=== PATIENT | male | born 1950 | race African-American/Black ===

== ENCOUNTER → 2017-10-24 11:39 | Outpatient (CLI) | payer MEDICARE, OTHER, SELFPAY ==
--- NOTE | 2017-10-24 12:19 | RAD_ITS ---
STUDY: X-RAY - CERVICAL SPINE REASON FOR EXAM: Male, 67 years old. Neck pain TECHNIQUE: 6 view(s) of the cervical spine were obtained. COMPARISON: None FINDINGS: Normal anterior atlantoaxial articulation. Normal odontoid process. Normal cervical lordosis. There is multi-level endplate spondylosis. There is multi-level degenerative disc disease with multilevel disc space narrowing. There is multi-level osseous foraminal stenosis. The soft tissue structures are unremarkable. RAD/Cerv Spine 4 or 5 Views IMPRESSION: There is multi-level degenerative disc disease with multilevel disc space narrowing. There is multi-level osseous foraminal stenosis. Electronically Signed: Leda Coronado MD at 12:34 EDT Tel , Service support ,
[2017-10-24 15:45] LABS: Absolute Lymphocyte Count 2.39 X10^3/ul (0.83-4.51); Absolute Neutrophil Count 4.6 X10^3/uL (2.0-7.7); Basophil# 0.07 X10^3/uL; Basophil% 0.9 % (0-1); Eosinophil# 0.21 X10^3/uL; Eosinophils% 2.6 % (0-5); Hematocrit 47.3 % (40-54); Lymphocyte # 2.39 X10^3/ul (4.0); Lymphocyte % 29.3 % (19-41); Mean Corp Hgb Conc 33.8 g/gl (32-36); Mean Corpuscular Hgb 31.7 pg (27.0-32.0); Mean Corpuscular Volume 93.8 fL (80-94); Mean Platelet Vol. 10.7 fl (6.2-12.0); Monocyte# 0.88 X10^3/uL; Monocyte% 10.8 % (0-10); Neutrophil % 56.3 % (47-70); POSITIVE COUNT NO; POSITIVE DIFFERENTIAL NO; POSITIVE MORPHOLOGY NO; Platelet Count 312 K/mm3 (150-450); RBC Distribution Width CV 14.9 % (11.6-14.6); Red Blood Count 5.04 M/mm3 (4.6-6.2); White Blood Count 8.2 K/mm3 (4.4-11.0)
[2017-10-24 15:56] LABS: AST(SGOT) 13 U/L (15-37); Alanine Aminotransfer ALT/SGPT 16 U/L (16-61); Albumin, Serum 3.5 g/dL (3.2-5.0); Alkaline Phosphatase 51 U/L (45-117); Anion Gap 4 (5-15); BUN 15 mg/dL (7-18); BUN/Creat Ratio 17.2 RATIO (10-20); Calcium,Total 8.7 mg/dL (8.5-10.1); Chloride 106 mmol/L (98-107); Cholesterol 171 mg/dL (200); Creatinine, Serum 0.87 mg/dL (0.70-1.30); EST Glomerular Filtration Rate 93 mL/min (>60); Est Glom Filt Rate - Afr Amer 113 mL/min (>60); Globulin 3.6 g/dL (2.2-4.2); Glucose 91 mg/dL (74-106); High Density Lipoprotein 46 mg/dL; Potassium 4.5 mmol/L (3.5-5.1); Protein, Total 7.1 g/dL (6.4-8.2); Sodium Level 141 mmol/L (136-145); Triglycerides 120 mg/dL; Very Low Density Lipoprotein 24 mg/dL (5-40)
== END ==
PROVIDERS: Family Provider Family Medicine; PCP Family Medicine; Visit Provider Family Medicine
DX: M54.12 Radiculopathy, cervical region (principal); R20.0 Anesthesia of skin; I10 Essential (primary) hypertension; Z12.5 Encounter for screening for malignant neoplasm of prostate; E78.1 Pure hyperglyceridemia; N40.0 Benign prostatic hyperplasia without lower urinary tract symptoms
CPT/HCPCS: 36415; 72050; 80053; 80061; 85025

== ENCOUNTER 2017-11-16 19:46 | Emergency (ER) | payer MEDICARE, OTHER, SELFPAY ==
[2017-11-16 19:47] VITALS: BP 138/71; PULSE 76; RESP 20; TEMP 36.8; O2SAT 98; BMI 23.3
--- NOTE | 2017-11-16 20:32 | ED.VISSUMM ---
- ER Visit Summary Date of Service: 11/16/17 Chief Complaint: Left lower back pain History of Present Illness: The patient is a 67 M lower back pain after lifting a 40 pound bag of salt. No radicular symptoms. No loss of bowel or bladder control. Symptoms occurred yesterday. Similar symptoms 6-8 months ago self-limiting. Took Tylenol at noon. No relief. States there is a swelling spot in that region that has been there previously. Concerns this may have been aggravated. No history of gastric ulcers or kidney injuries. Takes medicines for hypertension. Physical Examination: General: Alert and oriented ?3, no acute distress HEENT: Normocephalic, atraumatic. Moist mucosa membranes Neck: supple, nontender. Cardiovascular: Regular rate and rhythm, no murmurs Respiratory: Normal breath sounds, symmetric, no distress Abdomen: Soft, nontender, nondistended Back: No midline tenderness. Tender palpation left lower lumbar, reproducible. Straight leg test bilaterally negative. 1+ patellar reflex bilaterally. There is a bogginess 4 x 3 cm lesion left lower lateral, no erythema, nontender. Extremities: Nontender, no edema, pulses intact ?4 Neuro: no focal neurological deficits. Test Results: [] Emergency Department Course and Treatment: Patient exam concerns for lumbar strain. No cauda equina symptoms. Patient had his bogginess lesion left lower back there prior. Concerns currently for cystic lesion. Discussed with patient we will treat symptomatically. He will be placed on short-term NSAIDs. He will follow-up with PCP for reevaluation further testing. All questions were answered. Treatment Plan: [] Disposition: Discharge Impression: Acute lumbar strain This note was generated with [employer] dictation software. It may contain incorrect words, spelling, and punctuation that were not noted in review of the chart prior to signing ED Disposition - Plan for ED Patient: Disposition: Home or Assisted Living Chief Complaint: Back Diagnosis: Lumbar strain Instructions: ED Sprain Strain Lumbar Prescriptions: Ibuprofen 600 mg PO 4X/DAY #20 tablet Referrals: Eren Winslow DO [Primary Care Provider] - 5-7 Days
--- NOTE | 2017-11-16 20:36 | ED.DCSUM_ITS ---
- ER Visit Summary Date of Service: 11/16/17 Chief Complaint: Left lower back pain History of Present Illness: The patient is a 67 M lower back pain after lifting a 40 pound bag of salt. No radicular symptoms. No loss of bowel or bladder control. Symptoms occurred yesterday. Similar symptoms 6-8 months ago self- limiting. Took Tylenol at noon. No relief. States there is a swelling spot in that region that has been there previously. Concerns this may have been aggravated. No history of gastric ulcers or kidney injuries. Takes medicines for hypertension. Physical Examination: General: Alert and oriented ?3, no acute distress HEENT: Normocephalic, atraumatic. Moist mucosa membranes Neck: supple, nontender. Cardiovascular: Regular rate and rhythm, no murmurs Respiratory: Normal breath sounds, symmetric, no distress Abdomen: Soft, nontender, nondistended Back: No midline tenderness. Tender palpation left lower lumbar, reproducible. Straight leg test bilaterally negative. 1+ patellar reflex bilaterally. There is a bogginess 4 x 3 cm lesion left lower lateral, no erythema, nontender. Extremities: Nontender, no edema, pulses intact ?4 Neuro: no focal neurological deficits. Test Results: [] Emergency Department Course and Treatment: Patient exam concerns for lumbar strain. No cauda equina symptoms. Patient had his bogginess lesion left lower back there prior. Concerns currently for cystic lesion. Discussed with patient we will treat symptomatically. He will be placed on short-term NSAIDs. He will follow-up with PCP for reevaluation further testing. All questions were answered. Treatment Plan: [] Disposition: Discharge Impression: Acute lumbar strain This note was generated with [employer] dictation software. It may contain incorrect words, spelling, and punctuation that were not noted in review of the chart prior to signing ED Disposition - Plan for ED Patient: Disposition: Home or Assisted Living Chief Complaint: Back Diagnosis: Lumbar strain Instructions: ED Sprain Strain Lumbar Prescriptions: Ibuprofen 600 mg PO 4X/DAY #20 tablet Referrals: Eren Winslow DO [Primary Care Provider] - 5-7 Days
[2017-11-16] MEDS: Ibuprofen 600 MG Tablet PO (20:43)
== END 2017-11-16 20:44 | disposition home or self-care (01) ==
LOC: ED 20:42
PROVIDERS: Emergency Provider Emergency Medicine; Family Provider Family Medicine; PCP Family Medicine
DX: S39.012A Strain of muscle, fascia and tendon of lower back, initial encounter (principal); X50.0XXA Overexertion from strenuous movement or load, initial encounter; Y93.9 Activity, unspecified; Y92.9 Unspecified place or not applicable; I10 Essential (primary) hypertension; L98.9 Disorder of the skin and subcutaneous tissue, unspecified; Z79.899 Other long term (current) drug therapy; Z72.0 Tobacco use
CPT/HCPCS: 99282

== ENCOUNTER → 2017-12-10 10:36 | Outpatient (CLI) | payer MEDICARE, OTHER, SELFPAY ==
--- NOTE | 2017-12-10 10:41 | STE_ITS ---
Reason For Study: SOB Stress Results Protocol: Luis Carlos Protocol Maximum Predicted HR: 154 bpm Target HR: 131 bpm% Max imum Predicted HR: 84 % DurationHeart Rate Stage (mm:ss) (bpm) BP Baseline 57 168/88 Luis Carlos Protocol Stage I 3:00 84 192/80 Luis Carlos Protocol Stage II 3:00 10 0 180/78 Luis Carlos Protocol Stage III 3:00 12 9 192/80 Recovery 64 180/90 Stress Duration: 9:00 mm:ss Maximum Stress HR: 129 bpmM ETS: 10 Baseline Echocardiogram Findings Stress Echo Wall motion Data Resting WMIntermediate WMStress WM Resting Wall Motion Wall Motion Stress All segments Normal. All segments Hyperkinetic. Ejection Fraction 60 %. Ejection Fraction 70 %. Stress Results Heart rate response: appropriate Blood pressure response: resting hypertension - exaggerated response Arrhythmias: occasional PAC during exercise / rare PAC during recovery; rare PVC during exercise / recovery Functional capacity: good Stopped secondary to: dyspnea. EKG Data Baseline ECG: Sinus Bradycardia. Peak exercise ECG: No Obvious ECG Changes. Symptoms with Stress No c/o chest discomfort during exercise / recovery. Interpretation Summary Negative (Adequate) Stress Echocardiogram Ordering Physician: Eren Winslow Referring Physician: Michael Tony MD Performed By: Geovanna Kapoor, MONAE, RVT
== END ==
PROVIDERS: Family Provider Family Medicine; PCP Family Medicine; Visit Provider Family Medicine
DX: R06.02 Shortness of breath (principal)
CPT/HCPCS: 93017; 93350

== ENCOUNTER → 2019-08-21 14:45 | Outpatient (CLI) | payer MEDICARE, OTHER, SELFPAY ==
[2019-08-21 17:35] LABS: Absolute Lymphocyte Count 2.55 X10^3/uL (0.83-4.51); Absolute Neutrophil Count 5.3 X10^3/uL (2.0-7.7); Basophil% 1.1 % (0-1); Eosinophils% 2.2 % (0-5); Hematocrit 43.8 % (40-54); Hemoglobin 14.2 g/dL (13.0-16.5); Lymphocyte # 2.55 X10^3/ul (4.0); Lymphocyte % 28.2 % (19-41); Mean Corp Hgb Conc 32.4 g/dL (32-36); Mean Corpuscular Hgb 31.1 pg (27.0-32.0); Mean Corpuscular Volume 96.1 fL (80-94); Mean Platelet Vol. 10.2 fl (6.2-12.0); Monocyte# 0.85 X10^3/uL; Monocyte% 9.4 % (0-10); NRBC Flagged by Analyzer 0 % (0-5); Neutrophil # 5.33 X10^3/uL (2.7-7.7); Neutrophil % 58.9 % (47-70); Platelet Count 297 K/mm3 (150-450); RBC Distribution Width CV 14.6 % (11.6-14.6); RBC Distribution Width SD 51.1 fl (35.1-43.9); Red Blood Count 4.56 M/mm3 (4.6-6.2); White Blood Count 9.1 K/mm3 (4.4-11.0)
[2019-08-21 17:51] LABS: ALB/GLOB Ratio 0.9 RATIO (0.9-2.4); AST(SGOT) 12 U/L (15-37); Alanine Aminotransfer ALT/SGPT 21 U/L (16-61); Albumin, Serum 3.5 g/dL (3.2-5.0); Alkaline Phosphatase 58 U/L (45-117); Anion Gap 3 (5-15); BUN 13 mg/dL (7-18); BUN/Creat Ratio 12.9 RATIO (10-20); Calcium,Total 8.8 mg/dL (8.5-10.1); Chloride 103 mmol/L (98-107); Cholesterol 181 mg/dL (200); Creatinine, Serum 1.01 mg/dL (0.70-1.30); EST Glomerular Filtration Rate 78 mL/min (>60); Est Glom Filt Rate - Afr Amer 94 mL/min (>60); Globulin 3.7 g/dL (2.2-4.2); Glucose 82 mg/dL (74-106); High Density Lipoprotein 50 mg/dL; Potassium 3.8 mmol/L (3.5-5.1); Protein, Total 7.2 g/dL (6.4-8.2); Sodium Level 138 mmol/L (136-145); Triglycerides 153 mg/dL; Very Low Density Lipoprotein 31 mg/dL (5-40)
== END ==
PROVIDERS: PCP Family Medicine; Visit Provider Family Medicine
DX: I10 Essential (primary) hypertension (principal); E78.1 Pure hyperglyceridemia; Z12.11 Encounter for screening for malignant neoplasm of colon; Z12.5 Encounter for screening for malignant neoplasm of prostate
CPT/HCPCS: 36415; 80053; 80061; 84153; 85025; G0103

== ENCOUNTER 2019-09-28 06:31 | Day surgery (SDC) | payer MEDICARE, OTHER, SELFPAY ==
[2019-09-28 06:50] VITALS: BP 149/95; PULSE 82; RESP 16; TEMP 36.2; O2SAT 98; BMI 21.9
[2019-09-28] MEDS: Lactated Ringers 1,000 ML 100 ML IV (06:55)
--- NOTE | 2019-09-28 07:58 | HP.PCM_ITS ---
History of Present Illness Date of Admission: 09/28/19 The patient is a 69 year old M who presents for screening colonoscopy. He has never had a colonoscopy. Past Medical/Surgical History - Planned Operation Planned Operative Procedure/s: cscope open access Date of Operative Procedure: 09/28/19 Permit Signed: No S.O.S: No Is This Patient Having a Total Joint: No - Previous Hospitalizations/Surgeries HX Hospitalizations: No HX of Surgeries: left eye surgery Any Problems With Anesthesia: No You/Your Family Experience Fever (Hyperthermia) With Anes: No Cholinesterase deficiency: No - Cardiovascular Hx Chest Pain within Last 2 months: No Hx of Irregular Heartbeat and/or Afib: No Hx Heart Attack: No Hx Congestive Heart Failure: No Hx Rheumatic Fever: No Hx Hypertension: Yes - controlled with meds Hx Internal Defibrillator: No Hx Pacemaker: No Hx Cardiac Catheterization: No Hx Cardiac Surgery/Stents/Etc.: No Hx Stress Test: Yes - stress echo 2018 HX Edema: No Hx Pain in Legs when Walking/Leg Cramps: No - Respiratory Chronic Cough: No HX of Shortness of Breath: Yes - slightly sob with [address] Hoarseness: No Hx Chronic Obstructive Pulmonary Disease (COPD): No Hx Asthma: No Hx Emphysema: No Hx Sleep Apnea: No Hx Oxygen Use at Home: No Hx Respiratory Tract Infection/Cold (presently): No Do You Snore Loudly (louder than talking or can be heard): No Do You Often Feel Tired/ Fatigued/ Sleepy Dring Daytime?: No Has Anyone Observed You Stop Breathing During Sleep?: No Result (for STOP score): Negative Hx Smoking: Yes Smoking Status: Current some day smoker - Gastrointestinal Hx Gastroesophageal Reflux: No Hx Gastrointestinal Disorders: No Hx Gastrointestinal Bleed: No Hx Ulcer: No Hx Hiatal Hernia: No Difficulty Chewing/Swallowing: No Recent Onset of Swallowing Problems: No Special diet followed at home: No Hx Unplanned Weight Loss of 20#: No HX Unplanned Weight Gain of 20#: No - Neurological Hx Seizures: No HX Syncope/Blackout Spells/Unconsciousness: No Hx CVA/Stroke: No Hx Transient Ischemic Attacks (TIA): No Hx Multiple Sclerosis: No Hx Parkinson's Disease: No Hx Head/Neck Injury: No Hx Headaches: No Hx Back Injury/Pain: Yes - prn back pain Recent Onset of Speech Difficulty: No Restless Legs: No Does patient have nerve stimulator: No Patient instructed to have device shut off: No Rep notified?: No - Blood Disorder Hx Leukemia: No Bleeding Tendencies: No Hx Deep Vein Thrombosis: No Hx High Cholesterol: No Blood Transmitted Disease: No Hx Hepatitis: No Hx Cirrhosis: No Hx Anemia: No Hx Blood Disorders: No - Genitourinary Hx Renal Disease: No - Musculoskeletal Hx Arthritis: No Hx Rheumatoid Arthritis: No Hx Gout: No Recent Onset of an Orthopedic Problem: No - Endocrine Hx Diabetes: No Thyroid Disease: No Hx Steroid Therapy: No - Psycho/Social Hx Substance Use: No Hx Alcohol Use: No Hx Anxiety: No Hx Depression: No Mental Illness: No Hx Dementia: No - Miscellaneous Hx Cancer: No Recent Exposure to Contagious Disease: No Active MRSA: No Hx of C-Diff: No Any Loose Teeth: No - dentures Allergies No Known Allergies Allergy (Verified 09/28/19 06:49) - Discharge Is Pt Admitted From a Alf, or a Detention: No Who Could Help: family After D/C, Where Do you Plan to Go: Return Home - Physical Exam Vitals/I&O's: Vital Signs Temp Pulse Resp BP Pulse Ox 97.2 F L 82 16 149/95 H 98 09/28/19 06:50 09/28/19 06:50 09/28/19 06:50 09/28/19 06:50 09/28/19 06:50 Oxygen Delivery Method Room Air Weight: 135 lb 12.876 oz Body Mass Index (BMI) 21.9 General: Alert, Oriented x3 Lungs: Clear to auscultation Cardiovascular: Regular rate, Regular Rhythm, No murmurs Abdomen: Bowel Sounds Present, Soft, Non Tender, Non-Distended Current Medications Lactated Ringer's () 1,000 mls @ 100 mls/hr IV .Q10H CHARLES Last Admin: 09/28/19 06:55 Dose: 100 mls/hr Documented by: Assessment/Plan Assessment: Screening colonoscopy Plan: Colonoscopy Surgery Risks - Colonoscopy Risks Include but are not Limited To: Risks include but are not limited to: Bleeding, perforation requiring further surgery, inability to complete colonoscopy requiring barium enema.
[2019-09-28 08:00] VITALS: BP 148/87; BP 149/95; PULSE 78; RESP 16; TEMP 36.6; O2SAT 100
--- NOTE | 2019-09-28 08:03 | OP.COLON_ITS ---
Patient Name: Elio Vasquez Procedure Date: 09/28/2019 7:09 AM Date of : 1950 Age: 69 Procedure: Colonoscopy Indications: Screening for colorectal malignant neoplasm Providers: Tyrese Savage MD Referring MD: Eren Winslow Medicines: See the Anesthesia note for documentation of the administered medications Patient Profile: This is a 69 year old male. Refer to note in patient chart for documentation of history and physical. Last Colonoscopy: none. The patient's first colonoscopy is today. Complications: No immediate complications. Procedure: Pre-Anesthesia Assessment: - Prior to the procedure, a History and Physical was performed, and patient medications and allergies were reviewed. The patient's tolerance of previous anesthesia was also reviewed. The risks and benefits of the procedure and the sedation options and risks were discussed with the patient. All questions were answered, and informed consent was obtained. Prior Anticoagulants: The patient has taken no previous anticoagulant or antiplatelet agents. ASA Grade Assessment: II - A patient with mild systemic disease. After reviewing the risks and benefits, the patient was deemed in satisfactory condition to undergo the procedure. After I obtained informed consent, the scope was passed under direct vision. Throughout the procedure, the patient's blood pressure, pulse, and oxygen saturations were monitored continuously. The colonoscope was introduced through the anus and advanced to the cecum, identified by appendiceal orifice and ileocecal valve. The colonoscopy was performed without difficulty. The patient tolerated the procedure well. The quality of the bowel preparation was good. Scope In: 7:39:12 AM Scope Withdrawal Time 0 hours 5 minutes 59 seconds Scope Out: 7:55:36 AM Total Procedure Duration Time 0 hours 16 minutes 24 seconds Findings: Non-bleeding internal hemorrhoids were found during retroflexion. The hemorrhoids were mild and small. The exam was otherwise without abnormality. Impression: - Non-bleeding internal hemorrhoids. - The examination was otherwise normal. - No specimens collected. Recommendation: - Discharge patient to home. - Resume previous diet. - Continue present medications. - Repeat colonoscopy in 10 years for screening purposes. - Return to primary care physician (date not yet determined). Procedure Code(s): --- Professional --- G0121, Colorectal cancer screening; colonoscopy on individual not meeting criteria for high risk Diagnosis Code(s): --- Professional --- Z12.11, Encounter for screening for malignant neoplasm of colon K64.8, Other hemorrhoids CPT copyright 2017 [employer]. All rights reserved. The codes documented in this report are preliminary and upon drying room attendant review may be revised to meet current compliance requirements. MD Tyrese Le MD 09/28/2019 8:02:41 AM This report has been signed electronically. Number of Addenda: 0 Note Initiated On: 09/28/2019 7:09 AM
--- NOTE | 2019-09-28 08:03 | OP.CCLET_ITS ---
09/28/2019 Eren Winslow [address] [place] [address] Re : Colonoscopy procedure for Elio Vasquez Dear Dr. Winslow This procedure was performed on Saturday, September 28, 2019. My impressions and recommendations are as follows: Impressions : - Non-bleeding internal hemorrhoids. - The examination was otherwise normal. - No specimens collected. Recommendations : - Discharge patient to home. - Resume previous diet. - Continue present medications. - Repeat colonoscopy in 10 years for screening purposes. - Return to primary care physician (date not yet determined). My findings are described in the full procedure note, which is enclosed. If I can be of further assistance, please feel free to contact me at Doctor phone number(s): , Fax: [phone], Work: . Sincerely, MD Tyrese Le MD 09/28/2019 8:02:41 AM This report has been signed electronically.
[2019-09-28 08:05] VITALS: BP 146/90; BP 149/95; PULSE 76; RESP 18; O2SAT 100
[2019-09-28 08:10] VITALS: BP 149/95; BP 164/97; PULSE 72; RESP 18; O2SAT 98
[2019-09-28 08:15] VITALS: BP 149/95; BP 167/91; RESP 158; TEMP 36.2; O2SAT 100
[2019-09-28 08:30] VITALS: BP 149/95
--- NOTE | 2019-09-28 08:30 | SUR.PHASEII ---
Pt up to bathroom states had emesis. Offered something for nausea. Pt. refuses at this time.
== END 2019-09-28 08:55 | disposition home or self-care (01) ==
LOC: EN 06:31 → AC 06:32
PROVIDERS: PCP Family Medicine; Referring Provider Family Medicine; Visit Provider Surgery
PROC: 0DJD8ZZ Inspection of Lower Intestinal Tract, Via Natural or Artificial Opening Endoscopic (ICD-10-PCS; CPT 45378; principal; 2019-09-28 07:25)
DX: Z12.11 Encounter for screening for malignant neoplasm of colon (principal); K64.8 Other hemorrhoids; I10 Essential (primary) hypertension; Z79.899 Other long term (current) drug therapy; F17.200 Nicotine dependence, unspecified, uncomplicated
CPT/HCPCS: G0121; J7120; J1610

== ENCOUNTER → 2019-12-29 13:00 | Outpatient (CLI) | payer MEDICARE, OTHER, SELFPAY ==
[2019-12-29 12:37] VITALS: BMI 21.4
--- NOTE | 2019-12-29 13:01 | CT_ITS ---
STUDY: LOW DOSE CT LUNG CANCER SCREENING REASON FOR EXAM: Male, 69 years old. Tobacco use, smokes 1/2 pack per day, 42.5 pack year history, 133lbs, hypertension. RADIATION DOSAGE (If Supplied By Facility): CTDIvol = ( 2.01 ) mGy, DLP = ( 81.03 ) mGycm TECHNIQUE: No contrast was administered. Low dose technique was utilized (average mAS-38 and kVp 120). 1.25 mm axial source images with a slice interval of 1.25-mm were reconstructed in lung windows. 2.5 mm axial source images with a slice interval of 2.5-mm were reconstructed in lung windows. 5.0 mm axial source images with a slice interval of 5.0-mm were reconstructed in soft tissue windows. Nodule measured using lung windows on PACS and/or independent workstation with automated measurement of minimum and maximum diameter. Nodule measurement reported as average diameter rounded to the nearest whole number. Growth is defined as an increase ins size of greater than 1.5 mm. COMPARISON: None. NODULES: No suspicious nodule is seen. Emphysema: Hyperinflation. Diffuse emphysematous changes worse in the upper lobes with evidence of centrilobular emphysema. Endobronchial lesion: None. Aorta: Atherosclerotic plaques of the aortic arch. Coronary arteries: Coronary artery calcification. Heart: Unremarkable Pulmonary artery: Unremarkable Mediastinal nodes: Small benign-appearing mediastinal lymph nodes. Other chest and abdominal findings: Degenerative changes of the thoracic vertebra. CT/Low Dose CT Lung Screening IMPRESSION: Lung-RADS category 2 - Continue annual screening with LDCT in 12 months. IMPORTANT NOTES FOR USE: ACR Lung-RADS Version 1.0 Assessment Categories Release Date: November 30, 2013 Category: Coded 0-4 bases on nodule(s) with highest degree of suspicion. Negative screen is defined as categories 1 and 2; a positive screen is defined as categories 3 and 4. Category 3 and 4A nodules that are unchanged on interval CT should be coded as category 2, and individuals returned to screening in 12 months. Category 4X: Category 3 or 4 nodules with additional imaging findings that increase the suspicion of lung cancer, such as spiculation, GGN that doubles in size in 1 year, enlarged lymph notes, etc. Category Modifiers: S (significant finding unrelated to lung cancer) and C (prior history of treated lung cancer) may be added to the 0-4 Lung-RADS Electronically Signed: Ravindra Wolfe, at 13:26 EDT , Service support ,
== END ==
PROVIDERS: PCP Family Medicine; Referring Provider Nurse Practitioner Family; Visit Provider Nurse Practitioner Family
DX: F17.210 Nicotine dependence, cigarettes, uncomplicated (principal); Z12.2 Encounter for screening for malignant neoplasm of respiratory organs
CPT/HCPCS: G0297

== ENCOUNTER → 2020-03-11 12:39 | Outpatient (CLI) | payer MEDICARE, OTHER, SELFPAY ==
[2019-12-31 10:49] VITALS: BMI 21.5
--- NOTE | 2020-03-11 14:33 | PFTCOMP_ITS ---
COMPLETE PULMONARY FUNCTION TEST INTERPRETATION Brief HPI: Patient is a 69 year old -[place] male, currently under the care of myself, who presents to [facility] for complete pulmonary function tests secondary to diagnosis of dyspnea. Respiratory therapist reports good effort and reproducible results. Interpretation: Forced expiration spirometry shows a severe large airways obstructive ventilatory defect with an FEV1 of 49% predicted. There is a significant bronchodilator response in FVC and FEV1 by strict ATS criteria. Spirograms are of good quality and plateau slowly, indicating slowly emptying areas of the lungs. The respiratory flow volume loop shows decreased expiratory flow rates at all lung volumes consistent with airway obstruction. Lung volumes by body plethysmography show a normal total lung capacity at 5.49 L, 98% predicted. FRC and RV are elevated out of proportion. Lung volume measurements are consistent with air-trapping. Diffusion capacity by carbon monoxide is decreased at 61% predicted. The airway resistance is elevated. No previous pulmonary function tests were available for review. Impression: Partially reversible severe large airways obstructive ventilatory defect, resulting in air trapping, and a pattern consistent with COPD/asthma overlap syndrome.
== END ==
PROVIDERS: PCP Family Medicine; Referring Provider Internal Medicine Critical Care Medicine; Visit Provider Internal Medicine Critical Care Medicine
DX: R06.00 Dyspnea, unspecified (principal); Z72.0 Tobacco use
CPT/HCPCS: 94060; 94726; 94729

== ENCOUNTER → 2020-03-30 09:30 | Outpatient (CLI) | payer MEDICARE, OTHER, SELFPAY ==
[2019-12-31 10:49] VITALS: BMI 21.5
[2020-03-30 09:55] VITALS: PULSE 59; PULSE 62; PULSE 69; PULSE 71; PULSE 72; PULSE 73; PULSE 74; O2SAT 90; O2SAT 91; O2SAT 93; O2SAT 94; O2SAT 95; O2SAT 97
--- NOTE | 2020-04-01 10:19 | PCM.PSN.6M ---
PSN 6 Minute Walk Test - 6 Minute Walk Test 6 Minute Walk Test: 6 Minute Walk Test PSN:6-Minute Walk Test Start: 03/30/20 09:55 Freq: Status: Active Protocol: [id number].6MINW Document 03/30/20 09:55 SEBASTIÁN (Rec: 03/30/20 09:57 SEBASTIÁN [id number]) 6 Minute Walk Test Date Performed 03/30/20 Time Performed 09:45 Height 5 ft 6 in Weight: 135 lb Weight in Pounds 135.[address]: Luis Carlos Newman Assistive device used: None Pre-test Oxygen Delivery Method Room Air Pulse Ox (%) 94 Pulse Rate (60-100 beats/min) 59 L Dyspnea Audrey Scale (0-10) 0.5 Exertion Audrey Scale (6-20) 6 1st minute Oxygen Delivery Method Room Air Pulse Ox (%) 97 Pulse Rate (60-100 beats/min) 69 2nd minute Oxygen Delivery Method Room Air Pulse Ox (%) 93 Pulse Rate (60-100 beats/min) 71 3rd minute Oxygen Delivery Method Room Air Pulse Ox (%) 91 Pulse Rate (60-100 beats/min) 72 4th minute Oxygen Delivery Method Room Air Pulse Ox (%) 91 Pulse Rate (60-100 beats/min) 72 5th minute Oxygen Delivery Method Room Air Pulse Ox (%) 93 Pulse Rate (60-100 beats/min) 73 6th minute Oxygen Delivery Method Room Air Pulse Ox (%) 90 Pulse Rate (60-100 beats/min) 74 Dyspnea Audrey Scale (0-10) 3 Exertion Audrey Scale (6-20) 11 Post-test Oxygen Delivery Method Room Air Pulse Ox (%) 95 Pulse Rate (60-100 beats/min) 62 Full Laps Walked 19 Partial Lap, Number of Tiles Walked 26 Total Distance Walked (ft) 1147 - Interpretation Interpretation: The patient ambulated 1147 feet over the course of 6 minutes beginning on room air without assistive devices or breaks. Pretesting oxygen saturation was noted to be 94% on room air. With ambulation, the melinda oxygen saturation was 90%. This represents a significant exertional oxygen desaturation. - Recommendations Recommendations: There is no indication for the use of supplemental oxygen at this time. However, close interval follow-up is recommended, given the degree of oxygen desaturation noted during this study.
== END ==
PROVIDERS: PCP Family Medicine; Referring Provider Internal Medicine Critical Care Medicine; Visit Provider Internal Medicine Critical Care Medicine
DX: R06.00 Dyspnea, unspecified (principal); Z72.0 Tobacco use
CPT/HCPCS: 94618

== ENCOUNTER → 2020-10-05 10:19 | Outpatient (CLI) | payer MEDICARE, OTHER, SELFPAY ==
[2020-04-13 05:34] VITALS: BMI 22.1
--- NOTE | 2020-10-05 12:48 | PFTCOMP_ITS ---
COMPLETE PULMONARY FUNCTION TEST INTERPRETATION Brief HPI: Patient is a 70 year old Black male, currently under the care of myself, who presents to [facility] for complete pulmonary function tests secondary to diagnosis of COPD. Respiratory therapist reports good effort and reproducible results. Interpretation: Forced expiration spirometry shows a moderate large airways obstructive ventilatory defect with an FEV1 of 65% predicted. There is a significant bronchodilator response in FVC and FEV1 by strict ATS criteria. Spirograms are of good quality and plateau slowly, indicating slowly emptying areas of the lungs. The respiratory flow volume loop shows decreased expiratory flow rates at all lung volumes consistent with airway obstruction. Lung volumes by body plethysmography show a normal total lung capacity at 6.4 L, 115% predicted. FRC and RV are elevated out of proportion. Lung volume measurements are consistent with hyperinflation and air-trapping. Diffusion capacity by carbon monoxide is at the lower limit of normal at 70% predicted. The airway resistance is elevated. Compared to previous pulmonary function tests from 03/11/2020, there is been a significant improvement in FVC, FEV1 and DLCO by 23%, 49% and 18% respectively. Impression: Partially reversible moderate large airways obstructive ventilatory defect in a pattern consistent with COPD/asthma overlap syndrome. There has been significant improvement over the last year.
== END ==
PROVIDERS: PCP Family Medicine; Referring Provider Internal Medicine Critical Care Medicine; Visit Provider Internal Medicine Critical Care Medicine
DX: J44.9 Chronic obstructive pulmonary disease, unspecified (principal)
CPT/HCPCS: 94060; 94726; 94729

== ENCOUNTER → 2020-12-29 13:34 | Outpatient (CLI) | payer MEDICARE, OTHER, SELFPAY ==
[2020-10-11 10:11] VITALS: BMI 22.1
--- NOTE | 2020-12-29 13:36 | CT_ITS ---
STUDY: LOW DOSE CT LUNG CANCER SCREENING REASON FOR EXAM: Male, 70 years old. Current smoker and gt; 40 pack years RADIATION DOSAGE (If Supplied By Facility): CTDIvol = ( 2.01 ) mGy, DLP = ( 73.99 ) mGycm TECHNIQUE: No contrast was administered. Low dose technique was utilized (average mAS-38 and kVp 120). 1.25 mm axial source images with a slice interval of 1.25-mm were reconstructed in lung windows. 2.5 mm axial source images with a slice interval of 2.5-mm were reconstructed in lung windows. 5.0 mm axial source images with a slice interval of 5.0-mm were reconstructed in soft tissue windows. Nodule measured using lung windows on PACS and/or independent workstation with automated measurement of minimum and maximum diameter. Nodule measurement reported as average diameter rounded to the nearest whole number. Growth is defined as an increase ins size of greater than 1.5 mm. COMPARISON: Comparison is made with prior examination dated 12/29/2019. NODULES: No suspicious pulmonary nodules are present. Emphysema: Hyperinflation. Diffuse emphysematous changes with centrilobular changes in the lungs worse in the upper lobes. Endobronchial lesion: None Aorta: Mild degree of atherosclerotic plaque formation of the aortic arch. Coronary arteries: Coronary artery calcification. Heart: Unremarkable Pulmonary artery: Unremarkable Mediastinal nodes: Small benign appearing mediastinal lymph nodes. Other chest and abdominal findings: Degenerative changes of the thoracic vertebrae. CT/Low Dose CT Lung Screening IMPRESSION: Lung-RADS category 2 - Continue annual screening with LDCT in 12 months. IMPORTANT NOTES FOR USE: ACR Lung-RADS Version 1.1 Assessment Categories Release Date: 2018 Category: Coded 0-4 bases on nodule(s) with highest degree of suspicion. Negative screen is defined as categories 1 and 2; a positive screen is defined as categories 3 and 4. Category 3 and 4A nodules that are unchanged on interval CT should be coded as category 2, and individuals returned to screening in 12 months. Category 4X: Category 3 or 4 nodules with additional imaging findings that increase the suspicion of lung cancer, such as spiculation, GGN that doubles in size in 1 year, enlarged lymph notes, etc. Category Modifiers: S (significant finding unrelated to lung cancer) Electronically Signed: Ravindra Wolfe MD at 13:26 EDT , Service support ,
== END ==
PROVIDERS: PCP Family Medicine; Referring Provider Nurse Practitioner Acute Care; Visit Provider Nurse Practitioner Acute Care
DX: F17.210 Nicotine dependence, cigarettes, uncomplicated (principal)
CPT/HCPCS: 71271

== ENCOUNTER → 2022-01-02 | Outpatient (CLI) | payer MEDICARE, OTHER, SELFPAY ==
--- NOTE | 2022-01-02 15:53 | CT_ITS ---
EXAM: CT CHEST, LUNG CANCER SCREENING WITHOUT INTRAVENOUS CONTRAST CLINICAL INDICATION: smoker and gt; 40 pack years TECHNIQUE: Helically acquired images were obtained of the chest without intravenous contrast using low dose (LDCT) lung cancer screening protocol. This CT exam was performed using one or more of the following dose reduction techniques: automated exposure control, adjustment of the mA and/or kV according to patient size, and/or use of iterative reconstruction technique. This report was created using [employer] report generation technology. COMPARISON: 12/29/2020 FINDINGS: LUNGS AND PLEURAL SPACES: There are mild emphysematous changes in the upper lobes. No mass. No pleural effusion or thickening. No pneumothorax. HEART: Unremarkable. Heart size is normal. No pericardial effusion. No significant coronary artery calcifications. MEDIASTINUM: Unremarkable. No mediastinal or hilar adenopathy. Esophagus is unremarkable. No hiatal hernia. THYROID: Unremarkable. No thyroid lesions. BONES/JOINTS: Unremarkable. No suspicious lytic or blastic abnormality. VASCULATURE: Unremarkable. Thoracic aorta is non-dilated. LYMPH NODES: Unremarkable. No enlarged lymph nodes. CT/Low Dose CT Lung Screening IMPRESSION: 1. Pulmonary hyperinflation with emphysematous change. There is no acute pulmonary abnormality. There has been no change from reference examination. 2. Lung RADS category 2. Electronically Signed: Vladimir Gonzales MD at 2:57 EDT ,
== END | disposition home or self-care (01) ==
LOC: CT 15:50
PROVIDERS: PCP Family Medicine; Visit Provider Nurse Practitioner Acute Care
DX: F17.210 Nicotine dependence, cigarettes, uncomplicated (principal)
CPT/HCPCS: 71271

== ENCOUNTER 2022-09-23 21:06 | Emergency (ER) | payer MEDICARE, OTHER, SELFPAY ==
[2022-09-23 21:06] VITALS: BP 162/95; PULSE 77; RESP 18; TEMP 36.7; O2SAT 100; BMI 25.2
--- NOTE | 2022-09-23 21:16 | EKG12_ITS ---
Test Reason : SOB Blood Pressure : / mmHG Vent. Rate : 065 BPM Atrial Rate : 065 BPM P-R Int : 126 ms QRS Dur : 086 ms QT Int : 374 ms P-R-T Axes : 010 056 052 degrees QTc Int : 388 ms Normal sinus rhythm with sinus arrhythmia Normal ECG Confirmed by EDUIN BARRIOS, JIN ([id number]), market editor ENOCH SINGLETON ([id number]) on 09/24/2022 1:41:14 PM Referred By: JESUS Confirmed By:JIN DENNY MD
[2022-09-23 21:24] VITALS: O2SAT 100
[2022-09-23 21:26] VITALS: O2SAT 100
--- NOTE | 2022-09-23 21:27 | EDS_ITS ---
HPI <LARA Maza - Last Filed: 09/23/22 22:02> History of Present Illness Chief Complaint: Shortness of Breath Narrative Narrative: 72-year-old male with PMH of HTN, COPD, former smoker presents with shortness of breath and anxiety. Over the last week he has felt short of breath mainly at night. He states while he stays active during the day he feels fine and then when he lays down to sleep he feels like is hard to take a deep breath and he feels very anxious. He has had trouble sleeping and is taking melatonin but only gets 2 to 3 hours of sleep at a time. He denies chest pain. No recent fever or cough. He is on Trelegy and quit smoking 2 months ago. He has no history of DVT/PE, recent surgery or travel, hemoptysis, or hormone use. PFSH <LARA Maza - Last Filed: 09/23/22 22:02> [facility] Medical History (Updated 09/24/22 @ 00:[address] Jayla Nunez, ) COPD (chronic obstructive pulmonary disease) Current smoker Hypertension Home Medications diltiazem HCl 180 mg capsule,24 hr,extended release 180 mg PO QHS 09/25/19 [History Last Taken Unknown] hydrochlorothiazide 25 mg tablet 25 mg PO DAILY 09/25/19 [History Last Taken Unknown] lisinopril 10 mg tablet 10 mg PO QHS 09/25/19 [History Last Taken Unknown] albuterol sulfate 90 mcg/actuation aerosol inhaler 2 puff inhalation Q6H PRN shortness of breath or wheezing #18 grams 04/13/20 [Rx Last Taken Unknown] fluticasone fur. 100 mcg-umeclid 62.5 mcg-vilant 25 mcg inhalat.powder (Trelegy Ellipta) 1 inh inhalation DAILY #3 ea 02/12/22 [Rx Last Taken Unknown] hydroxyzine pamoate 25 mg capsule 25 mg PO BID anxiety #14 caps 09/24/22 [Rx Last Taken Unknown] Allergy/AdvReac Type Severity Reaction Status Date / Time No Known Allergies Allergy Verified 09/23/22 21:25 Family History Mother Hypertension Heart disease Surgical History History of eye surgery Social History (Updated 08/18/21 @ 09:42 by Mary Dill) Smoking Status: Former smoker Tobacco: How many years used: 50 Electronic Cigarette Use: not used second hand exposure: No quit status: considering quitting counseling given: provider counseling ROS <LARA Maza - Last Filed: 09/23/22 22:02> ROS ED ROS Narrative Constitutional: Negative for fever, chills, malaise. ENT: Negative for sore throat, ear pain, rhinorrhea. CVS: Negative for palpitations, chest pain, syncope. Respiratory: Positive for shortness of breath. Negative for cough. GI: Negative for abdominal pain, nausea, vomiting. Neuro: Negative for headache. Skin: Negative for rash, abscess, or wound. Musc: Negative for joint pain, swelling, trauma. Heme: Negative for easy bruising, bleeding, lymphadenopathy. EXAM <LARA Maza - Last Filed: 09/23/22 22:02> Physical Exam Narrative Exam Narrative: CONST: Patient sitting in no acute distress. EYES: Normal inspection. NECK: Normal inspection. RESP: No respiratory distress, CTAB. CVS: Regular rate and rhythm, no murmur, no gallop. SKIN: Color normal, no rash, warm, dry, intact. EXTREMITIES: Normal appearance, no pedal edema. NEURO: Oriented x4. PSYCH: Normal affect. Const Vital Signs: 09/23/22 21:06 09/23/22 21:24 09/23/22 21:26 Temperature 98.0 F Temperature Source Temporal Pulse Rate 77 Respiratory Rate 18 Respiratory Effort Short of Breath Respiratory Depth Normal Respiratory Pattern Normal Blood Pressure 162/95 H Blood Pressure Mean 117 Pulse Ox 100 100 Oxygen Delivery Method Room Air Room Air Room Air 09/23/22 23:30 Temperature Temperature Source Pulse Rate 68 Respiratory Rate 16 Respiratory Effort Respiratory Depth Respiratory Pattern Normal Blood Pressure Blood Pressure Mean Pulse Ox Oxygen Delivery Method <Dr. Jayla Nunez DO - Last Filed: 09/24/22 00:59> Physical Exam Const Vital Signs: 09/23/22 21:06 09/23/22 21:24 09/23/22 21:26 Temperature 98.0 F Temperature Source Temporal Pulse Rate 77 Respiratory Rate 18 Respiratory Effort Short of Breath Respiratory Depth Normal Respiratory Pattern Normal Blood Pressure 162/95 H Blood Pressure Mean 117 Pulse Ox 100 100 Oxygen Delivery Method Room Air Room Air Room Air 09/23/22 23:30 Temperature Temperature Source Pulse Rate 68 Respiratory Rate 16 Respiratory Effort Respiratory Depth Respiratory Pattern Normal Blood Pressure Blood Pressure Mean Pulse Ox Oxygen Delivery Method [facility] <LARA Maza - Last Filed: 09/23/22 22:02> [facility] Narrative Medical decision making narrative: Patient presents with dyspnea and anxiety with a sensation that is hard to take a deep breath while laying down at night. During the day when he is active he has no symptoms. He has no chest pain. He appears well and nontoxic. Initially BP was 162/95 with otherwise normal vital signs. During my exam is 138/80. He speaking in full sentences in no distress. There is no stridor or wheezing. His dyspnea sounds atypical for ACS but due to his age and risk factors a cardiac work-up will be done. He has no risk factors for DVT/PE. EKG is sinus rhythm with no ischemic changes. Labs are pending. Lab Data Attestation: I reviewed the patient's lab results. Labs: Laboratory Results - last 24 hr 09/23/22 09/23/22 09/23/22 21:44 21:44 22:00 WBC 9.3 RBC 4.59 L Hgb 14.8 Hct 43.5 MCV 94.8 H MCH 32.2 H MCHC 34.0 RDW Std Deviation 47.7 H RDW Coeff of Ernestine 13.5 Plt Count 285 MPV 10.3 Immature Gran % (Auto) 0.200 Neut % (Auto) 57.8 Lymph % (Auto) 23.8 Mineral % (Auto) 11.0 H Eos % (Auto) 6.2 H Baso % (Auto) 1.0 Absolute Neuts (auto) 5.4 Absolute Lymphs (auto) 2.21 Nucleated RBC % 0 D-Dimer Quant (PE/DVT) < 0.27 L Sodium 141 Potassium 3.7 Chloride 103 Carbon Dioxide 32.0 Anion Gap 6 BUN 28 H Creatinine 1.41 H Estim Creat Clear Calc 43.36 Est GFR (MDRD) Af Amer 64 Est GFR (MDRD) Non-Af 53 L BUN/Creatinine Ratio 19.9 Glucose 94 Calcium 8.9 Troponin I High Sens 9 09/24/22 00:37 WBC RBC Hgb Hct MCV MCH MCHC RDW Std Deviation RDW Coeff of Ernestine Plt Count MPV Immature Gran % (Auto) Neut % (Auto) Lymph % (Auto) Mineral % (Auto) Eos % (Auto) Baso % (Auto) Absolute Neuts (auto) Absolute Lymphs (auto) Nucleated RBC % D-Dimer Quant (PE/DVT) Sodium Potassium Chloride Carbon Dioxide Anion Gap BUN Creatinine Estim Creat Clear Calc Est GFR (MDRD) Af Amer Est GFR (MDRD) Non-Af BUN/Creatinine Ratio Glucose Calcium Troponin I High Sens 8 Radiography Diagnostic Testing: Clinical Impression(s) from Imaging Studies Chest X-Ray 09/23/22 22:04 IMPRESSION: Findings of pulmonary emphysema again demonstrated. No acute cardiopulmonary disease process identified. Electronically Signed: Bandar Valdez MD at 22:14 EST , EKG Initial EKG: Attestation: I personally reviewed and interpreted this EKG as follows: Interpretation: Sinus Rhythm and No Acute Injury Pattern Comments: ED attending interpretation of EKG is normal sinus rhythm at 65 bpm, no ectopy or acute ST changes <Dr. Jayla Nunez, DO - Last Filed: 09/24/22 00:59> [facility] Lab Data Labs: Laboratory Results - last 24 hr 09/23/22 09/23/22 09/23/22 21:44 21:44 22:00 WBC 9.3 RBC 4.59 L Hgb 14.8 Hct 43.5 MCV 94.8 H MCH 32.2 H MCHC 34.0 RDW Std Deviation 47.7 H RDW Coeff of Ernestine 13.5 Plt Count 285 MPV 10.3 Immature Gran % (Auto) 0.200 Neut % (Auto) 57.8 Lymph % (Auto) 23.8 Mineral % (Auto) 11.0 H Eos % (Auto) 6.2 H Baso % (Auto) 1.0 Absolute Neuts (auto) 5.4 Absolute Lymphs (auto) 2.21 Nucleated RBC % 0 D-Dimer Quant (PE/DVT) < 0.27 L Sodium 141 Potassium 3.7 Chloride 103 Carbon Dioxide 32.0 Anion Gap 6 BUN 28 H Creatinine 1.41 H Estim Creat Clear Calc 43.36 Est GFR (MDRD) Af Amer 64 Est GFR (MDRD) Non-Af 53 L BUN/Creatinine Ratio 19.9 Glucose 94 Calcium 8.9 Troponin I High Sens 9 09/24/22 00:37 WBC RBC Hgb Hct MCV MCH MCHC RDW Std Deviation RDW Coeff of Ernestine Plt Count MPV Immature Gran % (Auto) Neut % (Auto) Lymph % (Auto) Mineral % (Auto) Eos % (Auto) Baso % (Auto) Absolute Neuts (auto) Absolute Lymphs (auto) Nucleated RBC % D-Dimer Quant (PE/DVT) Sodium Potassium Chloride Carbon Dioxide Anion Gap BUN Creatinine Estim Creat Clear Calc Est GFR (MDRD) Af Amer Est GFR (MDRD) Non-Af BUN/Creatinine Ratio Glucose Calcium Troponin I High Sens 8 Radiography Diagnostic Testing: Clinical Impression(s) from Imaging Studies Chest X-Ray 09/23/22 22:04 IMPRESSION: Findings of pulmonary emphysema again demonstrated. No acute cardiopulmonary disease process identified. Electronically Signed: Bandar Valdez MD at 22:14 EST , Treatment and Re-Evaluation Narrative: I have personally performed a face to face assessment of the patient and have reviewed the ROBERT Note. I performed a substantive portion of the visit including all aspects of the following. My cabello findings include: Medical Decison Making: Patient is evaluated for sensation of shortness of breath. It is been going on for at least a week but sounds like actually longer. He says he feels pretty good during the day but at night when he tries to sleep he cannot sleep and then feels like he cannot take a deep breath. This makes him feel anxious. He thinks it might be anxiety but is not sure. He did quit smoking 2 months ago. Exam is benign. He is not wheezing. Does have some slightly diminished breath sounds however I suspect this is his baseline. Is not tachypneic, tachycardic or hypoxic. Is age greater than 50 he does have a D-dimer which is ordered. This is normal. Otherwise low suspicion for pulmona ry emboli and I do not think CTA is indicated. He is low risk per Wells criteria. This does not appear to be a COPD exacerbation. He is given a DuoNeb in the ER as he does have an episode of feeling more anxious and short of breath however he does not have any vital sign changes or arrhythmia on telemetry during this. He seems to be more hyperventilating. No significant change with breathing treatment however he states he felt better after talking to the respiratory therapist. Initial high-sensitivity troponin is 9 and EKG does not show any ischemic changes. Anticipate if EKG is normal he can be discharged home. Encouraged to follow-up with his rn x ray as well as primary care doctor. Will be started on Atarax to help with his sleep and anxiety. Is counseled the risk of falls and confusion associated with any type of anxiety or sedating medication especially in a patient in the 70s. Other additions or changes: [None]. Discharge Plan Triage Chief Complaint: Shortness of Breath ED Midlevel Provider: Marie Mckeon ED Provider: Jayla Nunez Dx/Rx/DC Orders Clinical Impression: Dyspnea, Anxiety Instructions: ED Anxiety Reaction, ED Dyspnea Prescriptions: New hydroxyzine pamoate 25 mg capsule 25 mg PO BID Qty: 14 0RF No Action albuterol sulfate 90 mcg/actuation HFA aerosol inhaler 2 puff INHALATION Q6H PRN (Reason: shortness of breath or wheezing) Qty: 18 1RF Trelegy Ellipta 100-62.5-25 mcg blister with device 1 inh inhalation DAILY Qty: 3 3RF diltiazem HCl 180 MG capsule,extended release 24 hr 180 mg PO QHS lisinopril 10 MG tablet 10 mg PO QHS hydrochlorothiazide 25 MG tablet 25 mg PO DAILY Primary Care Provider: Eren Winslow Referrals: Eren Winslow DO [Primary Care Provider] - Activity Restrictions/Additional Instructions: Your work-up is largely normal. Please continue taking all of your maintenance medications as prescribed. You been given a prescription for anxiety medication (hydroxyzine) to try to help with your symptoms. While unlikely, this can increase the risk of confusion and falls please be careful when taking it. Please follow-up with your primary care doctor for further treatment and management of your symptoms. At this time we do think you are safe to go home. Disposition Disposition: Home, Self Care
[2022-09-23 21:55] LABS: Absolute Lymphocyte Count 2.21 X10^3/uL (0.83-4.51); Absolute Neutrophil Count 5.4 X10^3/uL (2.0-7.7); Basophil# 0.09 X10^3/uL; Eosinophil# 0.58 X10^3/uL; Eosinophils% 6.2 % (0-5); Hematocrit 43.5 % (40-54); Hemoglobin 14.8 g/dL (13.0-16.5); Lymphocyte # 2.21 X10^3/ul (0.83-4.51); Lymphocyte % 23.8 % (19-41); Mean Corpuscular Hgb 32.2 pg (27.0-32.0); Mean Corpuscular Volume 94.8 fL (80-94); Mean Platelet Vol. 10.3 fl (6.2-12.0); Monocyte# 1.02 X10^3/uL; NRBC Flagged by Analyzer 0 % (0-5); Neutrophil # 5.38 X10^3/uL (2.7-7.7); Neutrophil % 57.8 % (47-70); Platelet Count 285 K/mm3 (150-450); RBC Distribution Width CV 13.5 % (11.6-14.6); RBC Distribution Width SD 47.7 fl (35.1-43.9); Red Blood Count 4.59 M/mm3 (4.6-6.2); White Blood Count 9.3 K/mm3 (4.4-11.0)
--- NOTE | 2022-09-23 22:04 | RAD_ITS ---
EXAM: XR CHEST, 1 VIEW CLINICAL INDICATION: chest pain TECHNIQUE: Frontal view of the chest. This report was created using [employer] report generation technology. COMPARISON: Low-dose chest CT of 01/02/2022. FINDINGS: LUNGS AND PLEURAL SPACES: Lungs remain hyperinflated due to pulmonary emphysema. No consolidation or edema. No pneumothorax. No effusion. HEART: Normal heart size. Pruning of the peripheral pulmonary vascular markings secondary to the pulmonary emphysema. MEDIASTINUM: Minimal elongation of the thoracic aorta. No mediastinal widening. Trachea is midline. BONES/JOINTS: No acute osseous abnormality. SOFT TISSUES: Unremarkable. RAD/Chest 1 View (Portable) IMPRESSION: Findings of pulmonary emphysema again demonstrated. No acute cardiopulmonary disease process identified. Electronically Signed: Bandar Valdez MD at 22:14 EST ,
[2022-09-23 22:16] LABS: Anion Gap 6 (5-15); BUN 28 mg/dL (7-18); BUN/Creat Ratio 19.9 RATIO (10-20); Calcium,Total 8.9 mg/dL (8.5-10.1); Chloride 103 mmol/L (98-107); Creatinine, Serum 1.41 mg/dL (0.70-1.30); EST Glomerular Filtration Rate 53 mL/min (>60); Est Glom Filt Rate - Afr Amer 64 mL/min (>60); Estimated Creatinine Clearance 43.36 ml/min; Glucose 94 mg/dL (74-106); Potassium 3.7 mmol/L (3.5-5.1); Sodium Level 141 mmol/L (136-145); Troponin-I HS (w/2H Reflex) 9 pg/mL (3.0-78.0)
[2022-09-23 23:25] LABS: D-Dimer Quantitative (DVT/PE) < 0.27 FEU/ug/m (0.27-0.49)
[2022-09-23 23:30] VITALS: PULSE 68; RESP 16
[2022-09-23] MEDS: Ipratropium/Albuterol Sulfate 3 ML AMPUL.NEB INHALATION (23:30)
[2022-09-23 23:49] LABS: Reflex Troponin-HS? (from REC) Y
[2022-09-24 00:53] VITALS: O2SAT 99
[2022-09-24 00:57] LABS: Troponin-I HS 8 pg/mL (3.0-78.0)
[2022-09-24 01:16] VITALS: BP 116/72
== END 2022-09-24 01:19 | disposition home or self-care (01) ==
PROVIDERS: Physician Assistant; Emergency Provider Emergency Medicine; PCP Family Medicine; Visit Provider Emergency Medicine
DX: R06.00 Dyspnea, unspecified (principal); J44.9 Chronic obstructive pulmonary disease, unspecified; F41.9 Anxiety disorder, unspecified; I10 Essential (primary) hypertension; Z87.891 Personal history of nicotine dependence; Z79.899 Other long term (current) drug therapy; G47.9 Sleep disorder, unspecified
CPT/HCPCS: 71045; 80048; 84484; 85025; 85379; 93005; 94640; 99284; J7030; A4216

== ENCOUNTER → 2023-02-20 | Outpatient (CLI) | payer MEDICARE, OTHER, SELFPAY ==
--- NOTE | 2023-02-20 08:55 | CT_ITS ---
STUDY: LOW DOSE CT LUNG CANCER SCREENING REASON FOR EXAM: Male, 72 years old. smoker RADIATION DOSAGE (If Supplied By Facility): CTDIvol = ( 2.01 ) mGy, DLP = ( 79.02 ) mGycm TECHNIQUE: No contrast was administered. Low dose technique was utilized (average mAS-38 and kVp 120). 1.25 mm axial source images with a slice interval of 1.25-mm were reconstructed in lung windows. 2.5 mm axial source images with a slice interval of 2.5-mm were reconstructed in lung windows. 5.0 mm axial source images with a slice interval of 5.0-mm were reconstructed in soft tissue windows. COMPARISON: 01/02/2022 Emphysema: Moderate emphysema. No noncalcified nodule or mass. Endobronchial lesion: None Aorta: No aortic aneurysm. CORONARY ARTERIES: Coronary artery calcification is seen. Heart: No cardiomegaly. Pulmonary artery: Normal Mediastinal nodes: Normal Other chest and abdominal findings: Peripherally calcified cysts in the right kidney. Suspect healed fracture of the left clavicle. CT/Low Dose CT Lung Screening IMPRESSION: Lung-RADS category 1 - Continue annual screening with LDCT in 12 months. IMPORTANT NOTES FOR USE: ACR Lung-RADS Version 1.1 Assessment Categories Release Date: 2018 Category: Coded 0-4 bases on nodule(s) with highest degree of suspicion. Negative screen is defined as categories 1 and 2; a positive screen is defined as categories 3 and 4. Category 3 and 4A nodules that are unchanged on interval CT should be coded as category 2, and individuals returned to screening in 12 months. Category 4X: Category 3 or 4 nodules with additional imaging findings that increase the suspicion of lung cancer, such as spiculation, GGN that doubles in size in 1 year, enlarged lymph notes, etc. Category Modifiers: S (significant finding unrelated to lung cancer) Electronically Signed: Jonatan He MD at 23:20 EDT Reading Location ID and State: [facility] / [place] Tel , Service support ,
== END | disposition home or self-care (01) ==
LOC: CT 08:49
PROVIDERS: PCP Family Medicine; Referring Provider Nurse Practitioner Acute Care; Visit Provider Nurse Practitioner Acute Care
DX: F17.210 Nicotine dependence, cigarettes, uncomplicated (principal)
CPT/HCPCS: 71271

== ENCOUNTER 2023-06-09 09:45 | Emergency (ER) | payer MEDICARE, OTHER, SELFPAY ==
[2023-06-09 09:46] VITALS: BP 186/87; PULSE 70; RESP 20; TEMP 36.6; O2SAT 100; BMI 23.8
--- NOTE | 2023-06-09 10:13 | ED.VIS.BACK ---
HPI History of Present Illness Chief Complaint: Back Informant: patient Narrative Narrative: Patient is a 73-year-old male with history of tobacco use and COPD presenting with back pain. Patient states he went to bed on Saturday feeling fine (2 days ago). He woke up Saturday morning with pretty severe low back pain. He states is worse with movement. He dealt with it throughout the day and took some Tylenol to finally get some sleep last night but notes he did not sleep well because of the pain. He states the pain is constant. Does not radiate. Denies any numbness or weakness of his legs. Denies any bowel or bladder symptoms. Is especially concerned because he cannot seem to reproduce it when he touches his muscles or his back. This morning the pain was still here and he can meant to be evaluated further. Denies any new physical activities. Denies any new issues or mattresses. Denies any fever, chills, chest discomfort, abdominal pain, urinary symptoms such as hematuria or urgency. Denies any radiation of the pain to states is diffusely in his lower back. No other complaints at this time. Does not take any blood thinners. [facility] Medical History COPD (chronic obstructive pulmonary disease) Current smoker Hypertension Home Medications diltiazem HCl 180 mg capsule,24 hr,extended release 180 mg PO QHS 09/25/19 [History Last Taken Unknown] hydrochlorothiazide 25 mg tablet 25 mg PO DAILY 09/25/19 [History Last Taken Unknown] lisinopril 10 mg tablet 10 mg PO QHS 09/25/19 [History Last Taken Unknown] albuterol sulfate 90 mcg/actuation aerosol inhaler 2 puff inhalation Q6H PRN shortness of breath or wheezing #18 grams 04/13/20 [Rx Last Taken Unknown] fluticasone fur. 100 mcg-umeclid 62.5 mcg-vilant 25 mcg inhalat.powder (Trelegy Ellipta) 1 inh inhalation DAILY #3 ea 02/12/22 [Rx Last Taken Unknown] hydroxyzine pamoate 25 mg capsule 25 mg PO BID anxiety #14 caps 09/24/22 [Rx Last Taken Unknown] oxycodone 5 mg tablet 5 mg PO Q8H PRN pain 3 days #10 tabs 06/09/23 [Rx Last Taken Unknown] prednisone 20 mg tablet 40 mg (2 x 20 mg) PO DAILY #10 tabs 06/09/23 [Rx Last Taken Unknown] Allergy/AdvReac Type Severity Reaction Status Date / Time No Known Allergies Allergy Verified 06/09/23 09:48 Family History Mother Hypertension Heart disease Surgical History History of eye surgery Social History Smoking Status: Former smoker Tobacco: How many years used: 50 Electronic Cigarette Use: not used second hand exposure: No quit status: considering quitting counseling given: provider counseling ROS ROS ED Constitutional Constitutional ED: Denies chills or fever(s) Cardiovascular Cardiovascular: Denies chest pain Respiratory/Chest Respiratory/Chest: Denies dyspnea Gastrointestinal Gastrointestinal: Denies abdominal pain, nausea or vomiting Musculoskeletal Musculoskeletal: Reports back pain; Denies arthralgias, myalgias or neck pain Integumentary Denies rash Neurologic Neurologic: Denies paresthesias or weakness Psychiatric Psychiatric: Denies anxiety or depression Hematologic/Lymphatic Hematologic/Lymphatic: Denies easy bleeding or easy bruising EXAM Physical Exam Const Vital Signs: 06/09/23 09:46 06/09/23 12:30 Temperature 98 F Temperature Source Temporal Pulse Rate 70 Respiratory Rate 20 H Blood Pressure 186/87 H 134/89 H Blood Pressure Mean 120 104 Pulse Ox 100 Oxygen Delivery Method Room Air Positive well nourished and well developed General Appearance ED: well developed and NAD HEENT Reports moist mucous membranes Neck supple and no JVD Resp normal respiratory effort and clear to auscultation bilaterally Cardio regular rate, regular rhythm and no murmurs GI normal to inspection, nondistended, normoactive bowel sounds, soft to palpation, non-tender and no masses Back/Spine normal to inspection and no thoracic nor lumbar tenderness General Back: Negative for CVA tenderness Thoracic Spine / Upper Back: Negative for paraspinal muscle tenderness Lumbar Spine / Lower Back: ROM limited Extremity normal to inspection General Extremety ED: Negative for edema or tenderness General Extremity: Negative for edema Neuro oriented x3 and no sensory deficits noted Neuro Narrative: 5/5 strength with flexion of the hips, flexion and extension of the lower legs as well as dorsi and plantarflexion of the feet. Sensation intact in all dermatomes. Motor Exam: strength 5/5 throughout Psych mental status grossly normal Skin no rashes or lesions noted and no wounds MDM MDM MDM Narrative Medical decision making narrative: Patient is evaluated for atraumatic low back pain. Physical exam is quite benign but he does seem uncomfortable. Vital signs remarkable for hypertension when she does have a history of. We will start with NSAID and obtain x-ray. Because it is worse with movements alone I suspect it is muscle skeletal however I cannot reproduce it with any direct palpation. He does not have midline tenderness. No red flag symptoms consistent with cauda equina syndrome. He does not have any focal weakness or neurologic deficits appreciated. X-ray of the lumbar spine shows mild degenerative changes as well as calcification in the right upper quadrant that could be gallbladder stones. This is reviewed by myself as well as radiology. Decision made to order CT Noncon for further evaluation of these calcifications in case they are somehow causing the pain however he does not have any abdominal pain and has a negative Jones sign. CT shows that these calcifications are actually coming from the right kidney and also shows an infrarenal small focal saccular abdominal aortic ectasia/aneurysm with no other acute process. Given his pain and hypertension upon arrival decision is made to perform a CTA of the abdomen and pelvis to rule out an acute aneurysm/dissection in that area as the cause of his pain. CTA is ordered which Shows focal dilation of the distal abdominal aorta which can be followed up by a 6-month exam. 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 Patient is informed of these findings. [employer] referral for vascular surgery for this aneurysm and encouraged to follow-up with his PCP for monitoring of these renal lesions. Creatinine is at his baseline but borderline. Patient notes that he does not drink a lot of water and is encouraged to increase his fluid intake especially after receiving contrast today. He verbalizes agreement this. In the meantime we will place on a course of steroids for his back pain as well as a short course of oxycodone for pain control. Counseled he can also take Tylenol as needed for pain control. Encouraged follow-up with primary care doctor this week if the back pain can 10 use as he might need further imaging/MRI or evaluation for physical therapy. Patient and member agreeable plan of care. Given return precautions. Discharged home in stable condition. Lab Data Attestation: I reviewed the patient's lab results. Labs: Laboratory Results - last 24 hr 06/09/23 06/09/23 13:00 14:20 WBC 7.8 RBC 4.68 Hgb 14.4 Hct 44.2 MCV 94.4 H MCH 30.8 MCHC 32.6 RDW Std Deviation 47.8 H RDW Coeff of Ernestine 13.7 Plt Count 282 MPV 10.1 Immature Gran % (Auto) 0.300 Neut % (Auto) 59.3 Lymph % (Auto) 29.1 [place] % (Auto) 9.0 Eos % (Auto) 1.3 Baso % (Auto) 1.0 Absolute Neuts (auto) 4.6 Absolute Lymphs (auto) 2.26 Nucleated RBC % 0 Sodium 140 Potassium 4.3 Chloride 104 Carbon Dioxide 33.0 H Anion Gap 3 L BUN 20 H Creatinine 1.36 H Estim Creat Clear Calc 44.31 Est GFR (MDRD) Af Amer 66 Est GFR (MDRD) Non-Af 55 L BUN/Creatinine Ratio 14.7 Glucose 95 Calcium 8.6 Total Bilirubin 0.40 AST 14 L ALT 11 L Alkaline Phosphatase 37 L Total Protein 7.0 Albumin 3.6 Globulin 3.4 Albumin/Globulin Ratio 1.1 Urine Color Yellow Urine Clarity Clear Urine pH 5.0 Ur Specific [place] 1.015 Urine Protein 30 H Urine Glucose (UA) Normal Urine Ketones Negative Urine Occult Blood 10 H Urine Nitrite Negative Urine Bilirubin Negative Urine Urobilinogen 1 H Ur Leukocyte Esterase 25 H Urine RBC 0-5 SEEN Urine WBC 0-5 SEEN Ur Squamous Epith Cells 0-5 SEEN Urine Bacteria 0 SEEN Urine Mucus 0 SEEN Radiography Diagnostic Testing: Clinical Impression(s) from Imaging Studies Lumbar Spine X-Ray 06/09/23 10:35 IMPRESSION: Mild degenerative changes. Right upper quadrant calcifications could be due to gallstones. Electronically Signed: Gee Duron MD at 10:54 EST , Abdomen/Pelvis CT 06/09/23 11:18 IMPRESSION: 1. 3.3 cm right renal mass with peripheral calcifications could represent calcified cyst. Another similar adjacent mass with peripheral calcifications measuring about 2.5 cm. Further evaluation with nonemergent CT scan of the kidneys with contrast is recommended. 2. Infrarenal small focal saccular abdominal aortic ectasia/aneurysm for which follow-up exam in 6 months or vascular surgery consultation. 3. Otherwise no focal acute inflammatory process. Electronically Signed: Gee Duron MD at 12:20 EST , Abdomen/Pelvis CTA 06/09/23 12:53 IMPRESSION: 1. 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 2. Focal dilatation of the distal abdominal aorta as described above without definite aneurysm on the postcontrast examination which can be further evaluated by 6 months follow-up exam. 3. Nonspecific fluid-filled small bowel loops without evidence of obstruction. Enteritis is possible. 4. Otherwise no focal acute inflammatory process. Electronically Signed: Gee Duron MD at 15:05 EST , Discharge Plan Triage Chief Complaint: Back ED Provider: Jayla Nunez Dx/Rx/DC Orders Clinical Impression: Aneurysm of infrarenal abdominal aorta, Acute lumbar back pain, Cyst of right kidney Instructions: ED Back Pain (Acute or Chronic) Prescriptions: New prednisone 20 mg tablet 40 mg PO DAILY Qty: 10 0RF oxycodone 5 mg tablet 5 mg PO Q8H PRN (Reason: pain) 3 Days Qty: 10 0RF No Action albuterol sulfate 90 mcg/actuation HFA aerosol inhaler 2 puff INHALATION Q6H PRN (Reason: shortness of breath or wheezing) Qty: 18 1RF Trelegy Ellipta 100-62.5-25 mcg blister with device 1 inh inhalation DAILY Qty: 3 3RF diltiazem HCl 180 MG capsule,extended release 24 hr 180 mg PO QHS lisinopril 10 MG tablet 10 mg PO QHS hydrochlorothiazide 25 MG tablet 25 mg PO DAILY hydroxyzine pamoate 25 mg capsule 25 mg PO BID Qty: 14 0RF Primary Care Provider: Eren Winslow Referrals: [place] Jim MD [Med Staff - Active Staff] - Eren Winslow, [Primary Care Provider] - Activity Restrictions/Additional Instructions: I suspect the pain in your back is more from muscles. We will treat with a short course of pain medicine as well as a burst of steroids. You may also take [id number] Tylenol as needed for pain. Use anti-inflammatory such as ibuprofen or naproxen sparingly your kidney function is borderline. Make sure you are drinking plenty of fluids. He been given referral for vascular surgery for further follow-up/monitoring of this aneurysm. In addition please follow-up with your family doctor for monitoring of cyst on your right kidney. It is unlikely they are malignant. Disposition Disposition: Home, Self Care
[2023-06-09] MEDS: Naproxen 375 MG Tablet PO (10:23)
--- NOTE | 2023-06-09 10:35 | RAD_ITS ---
INDICATION: pain, acute, atraumatic EXAMINATION/TECHNIQUE: X-RAY - XR Spine Lumbar Min 4 Views COMPARISON: No relevant prior comparison study available FINDINGS: VERTEBRAE: Preserved vertebral body height. No fracture. No spondylolisthesis. Preservation of the normal lumbar lordosis. No significant facet arthropathy. DISCS: Disc spaces are within normal limits. Endplate spondylosis. INCLUDED ABDOMEN: Large rounded calcifications in the right upper quadrant. RAD/L/S Spine Min 4 Views IMPRESSION: Mild degenerative changes. Right upper quadrant calcifications could be due to gallstones. Electronically Signed: Gee Duron MD at 10:54 EST ,
--- NOTE | 2023-06-09 11:18 | CT_ITS ---
EXAM: CT ABDOMEN AND PELVIS WITHOUT INTRAVENOUS CONTRAST CLINICAL INDICATION: low back pain, abnormal x ray TECHNIQUE: Helically acquired images were obtained of the abdomen and pelvis without intravenous contrast. This CT exam was performed using one or more of the following dose reduction techniques: automated exposure control, adjustment of the mA and/or kV according to patient size, and/or use of iterative reconstruction technique. CONTRAST: None. RADIATION DOSE: CTDIvol = 6.16 mGy, DLP = 261.65 mGy-cm COMPARISON: No prior examinations are available for comparison. FINDINGS: LOWER THORAX: Unremarkable. Lung bases are clear. No cardiomegaly. No significant pericardial effusion. ABDOMEN: LIVER: Unremarkable. Homogeneous. GALLBLADDER AND BILE DUCTS: Unremarkable. No calcified gallstones. No gallbladder distention or wall edema. No intra- or extrahepatic biliary ductal dilation. PANCREAS: Unremarkable. No focal cystic mass. SPLEEN: Unremarkable. Normal size without focal cystic or solid mass. ADRENALS: Unremarkable. No nodules. KIDNEYS AND URETERS: 3.3 cm right renal mass with peripheral calcifications could represent calcified cyst. Another similar adjacent mass with peripheral calcifications measuring about 2.5 cm would represent Bosniak type II F. Normal renal size and position. No hydronephrosis. STOMACH AND BOWEL: Sigmoid diverticulosis without evidence of acute diverticulitis. No stomach or bowel distention. PELVIS: APPENDIX: No evidence of acute appendicitis. BLADDER: Unremarkable. REPRODUCTIVE: Unremarkable as visualized. No mass. ABDOMEN and PELVIS: INTRAPERITONEAL SPACE: Unremarkable. No ascites or other fluid collection. No free air. BONES/JOINTS: No suspicious lytic or blastic abnormality. SOFT TISSUES: Unremarkable. No discrete abdominal or pelvic wall hernia. VASCULATURE: Focal saccular infrarenal dilatation of the distal abdominal aorta above the level of the bifurcation with maximum transverse diameter of 2.4 cm. LYMPH NODES: Unremarkable. No enlarged lymph nodes. CT/Abdomen/Pelvis without Cont IMPRESSION: 1. 3.3 cm right renal mass with peripheral calcifications could represent calcified cyst. Another similar adjacent mass with peripheral calcifications measuring about 2.5 cm. Further evaluation with nonemergent CT scan of the kidneys with contrast is recommended. 2. Infrarenal small focal saccular abdominal aortic ectasia/aneurysm for which follow-up exam in 6 months or vascular surgery consultation. 3. Otherwise no focal acute inflammatory process. Electronically Signed: Gee Duron MD at 12:20 EST ,
[2023-06-09 12:30] VITALS: BP 134/89
--- NOTE | 2023-06-09 12:53 | CT_ITS ---
INDICATION: low back pain, infrarenal aortic aneurysm EXAMINATION: CTA abdomen and pelvis - TECHNIQUE: Routine abdominal CT angiogram protocol was performed with IV contrast. MIP images provided. A radiation dose optimization technique was used for this scan. IV Contrast dosage and agent: 100 cc of Isovue-370 RADIATION DOSAGE (If Supplied By Facility): CTDIvol = ( 28.15 ) mGy, DLP = ( 618.10 ) mGycm COMPARISON: Noncontrast CT scan of the abdomen pelvis of the same day. FINDINGS: Lung bases: Essentially unremarkable. No evidence of pleural effusions. Liver: No focal lesion is seen. No bile ductal dilatation. Gallbladder: No evidence of cholelithiasis. Spleen: Essentially unremarkable. Adrenal gland: No adrenal masses are seen. Kidneys: Essentially an unenhanced to right renal lesions with peripheral calcifications, one measures about 3.3 cm and the other measures about 2.5 cm likely representing Bosniak type II F lesions. No evidence of hydronephrosis. Tiny cyst in the left kidney. Pancreas:Normal. Bowel gas pattern: Nonspecific fluid-filled small bowel loops without evidence of bowel obstruction. No evidence of acute diverticulitis. Appendix: No evidence of acute appendicitis. Free air: None. Free fluid: None. Pelvis: Pelvic organs: [Prominent prostate. Bone survey: No aggressive bony lesions. No acute fractures. Adenopathy: No significant pathologic adenopathy detected. Other: None. Vascular: Atherosclerotic excretions of the abdominal aorta. Segment of focal mild dilatation of the distal abdominal aorta relative to the proximal aspect with mural thrombus measuring up to 2.3 cm transverse diameter as opposed 1.9 cm more proximally. Unremarkable celiac axis and SMA. 2 left renal arteries. Unremarkable renal arteries without evidence of stenosis. It and FREDA. 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 CT/CTA Abd/Pelvis W/WO Contrast IMPRESSION: 1. 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 2. Focal dilatation of the distal abdominal aorta as described above without definite aneurysm on the postcontrast examination which can be further evaluated by 6 months follow-up exam. 3. Nonspecific fluid-filled small bowel loops without evidence of obstruction. Enteritis is possible. 4. Otherwise no focal acute inflammatory process. Electronically Signed: Gee Duron MD at 15:05 EST ,
[2023-06-09 13:27] LABS: Absolute Lymphocyte Count 2.26 X10^3/uL (0.83-4.51); Absolute Neutrophil Count 4.6 X10^3/uL (2.0-7.7); Basophil# 0.08 X10^3/uL; Eosinophils% 1.3 % (0-5); Hematocrit 44.2 % (40-54); Hemoglobin 14.4 g/dL (13.0-16.5); Lymphocyte # 2.26 X10^3/ul (0.83-4.51); Lymphocyte % 29.1 % (19-41); Mean Corp Hgb Conc 32.6 g/dL (32-36); Mean Corpuscular Hgb 30.8 pg (27.0-32.0); Mean Corpuscular Volume 94.4 fL (80-94); Mean Platelet Vol. 10.1 fl (6.2-12.0); NRBC Flagged by Analyzer 0 % (0-5); Neutrophil % 59.3 % (47-70); Platelet Count 282 K/mm3 (150-450); RBC Distribution Width CV 13.7 % (11.6-14.6); RBC Distribution Width SD 47.8 fl (35.1-43.9); Red Blood Count 4.68 M/mm3 (4.6-6.2); White Blood Count 7.8 K/mm3 (4.4-11.0)
[2023-06-09 13:44] LABS: ALB/GLOB Ratio 1.1 RATIO (0.9-2.4); AST(SGOT) 14 U/L (15-37); Alanine Aminotransfer ALT/SGPT 11 U/L (16-61); Albumin, Serum 3.6 g/dL (3.2-5.0); Alkaline Phosphatase 37 U/L (45-117); Anion Gap 3 (5-15); BUN 20 mg/dL (7-18); BUN/Creat Ratio 14.7 RATIO (10-20); Calcium,Total 8.6 mg/dL (8.5-10.1); Chloride 104 mmol/L (98-107); Creatinine, Serum 1.36 mg/dL (0.70-1.30); EST Glomerular Filtration Rate 55 mL/min (>60); Est Glom Filt Rate - Afr Amer 66 mL/min (>60); Estimated Creatinine Clearance 44.31 ml/min; Globulin 3.4 g/dL (2.2-4.2); Glucose 95 mg/dL (74-106); Potassium 4.3 mmol/L (3.5-5.1); Sodium Level 140 mmol/L (136-145)
[2023-06-09 14:30] LABS: Bacteria 0 SEEN /hpf (None Seen); Mucous, Urine 0 SEEN /hpf (<or=2+)
[2023-06-09 14:42] LABS: Color, Urine Yellow (Yellow); Glucose, Dipstick Normal (Normal); Ketone-Dipstick Negative (Negative); Leukocyte Esterase-Dipstick 25 /ul (Negative); Nitrite-Dipstick Negative (Negative); Occult Blood-Urine 10 /ul (Negative); Protein-Dipstick 30 mg/dl (Negative); Specific Gravity, Urine 1.015 (1.002-1.030); Urine Bilirubin Dipstick Negative (Negative); Urine Clarity Clear (Clear); Urine Urobilinogen 1 mg/dl (Normal)
[2023-06-09 15:25] LABS: Red Blood Cells-Urine 0-5 SEEN /hpf (0-5); Squamous Epithelial Cells - UA 0-5 SEEN /hpf (0-5); White Blood Cells 0-5 SEEN /hpf (0-5)
[2023-06-09 15:53] VITALS: PULSE 65; RESP 15; O2SAT 95
== END 2023-06-09 16:18 | disposition home or self-care (01) ==
PROVIDERS: Emergency Provider Emergency Medicine; PCP Family Medicine; Visit Provider Emergency Medicine
DX: I71.43 Infrarenal abdominal aortic aneurysm, without rupture (principal); J44.9 Chronic obstructive pulmonary disease, unspecified; Z79.4 Long term (current) use of insulin; M54.50 Low back pain, unspecified; Z87.891 Personal history of nicotine dependence; I10 Essential (primary) hypertension; N28.1 Cyst of kidney, acquired; Z79.899 Other long term (current) drug therapy; Z79.51 Long term (current) use of inhaled steroids
CPT/HCPCS: 72110; 74174; 74176; 80053; 81001; 85025; 99283; Q9967; A4216

== ENCOUNTER → 2023-07-15 | Outpatient (CLI) | payer MEDICARE, OTHER, SELFPAY ==
--- NOTE | 2023-07-16 10:46 | PFT_ITS ---
INTRODUCTION: The patient is a 73-year-old -[place] male who presents for pulmonary function studies secondary to a diagnosis of COPD. Respiratory therapy reported good patient effort. Bronchodilators were used during testing. INTERPRETATION: Forced expiration spirometry demonstrates the presence of a moderately severe large airways obstructive ventilatory defect. There was a significant response to aerosolized bronchodilators. Spirograms are of good quality but do not plateau indicating slow emptying of the lungs. Body plethysmography was performed and revealed an elevated RV to 192% of predicted, indicative of underlying air trapping. Diffusing capacity by single breath CO is reduced to 40% of predicted. IMPRESSION: Partially reversible moderately severe large airways obstructive ventilatory defect with associated air trapping and symmetric reduction in diffusing capacity.
== END | disposition home or self-care (01) ==
LOC: PSN 08:22
PROVIDERS: PCP Family Medicine; Referring Provider Nurse Practitioner Acute Care; Visit Provider Nurse Practitioner Acute Care
DX: J44.9 Chronic obstructive pulmonary disease, unspecified (principal)
CPT/HCPCS: 94060; 94726; 94729

== ENCOUNTER → 2023-08-06 | Outpatient (CLI) | payer MEDICARE, OTHER, SELFPAY ==
[2023-08-06 11:15] VITALS: PULSE 68; PULSE 71; PULSE 73; PULSE 78; PULSE 79; PULSE 94; PULSE 98; O2SAT 96; O2SAT 98
--- NOTE | 2023-08-07 05:47 | WT_ITS ---
PSN 6 Minute Walk Test 6 Minute Walk Test 6 Minute Walk Test: 6 Minute Walk Test PSN:6-Minute Walk Test Start: 08/06/23 11:26 Freq: Status: Active Protocol: [id number].6MINW Document 08/06/23 11:15 AE (Rec: 08/06/23 11:[address] [facility] Desktop) 6 Minute Walk Test Date Performed 08/06/23 Time Performed 11:15 Height 5 ft 6 in Weight: 67.132 kg Weight in Pounds 148.[address]: Tiffany Assistive device used: None Pre-test Oxygen Delivery Method Room Air Pulse Rate (60-100) 98 Dyspnea Audrey Scale (0-10) 64 Exertion Audrey Scale (6-20) 0 Number of Rests Taken 6 1st minute Oxygen Delivery Method Room Air Pulse Ox 98 Pulse Rate (60-100) 78 2nd minute Oxygen Delivery Method Room Air Pulse Ox 96 Pulse Rate (60-100) 79 3rd minute Oxygen Delivery Method Room Air Pulse Rate (60-100) 94 Dyspnea Audrey Scale (0-10) 84 4th minute Oxygen Delivery Method Room Air Pulse Ox 96 Pulse Rate (60-100) 73 5th minute Oxygen Delivery Method Room Air Pulse Ox 96 Pulse Rate (60-100) 79 6th minute Oxygen Delivery Method Room Air Pulse Ox 96 Pulse Rate (60-100) 71 Dyspnea Audrey Scale (0-10) 0 Exertion Audrey Scale (6-20) 8 Post-test Oxygen Delivery Method Room Air Pulse Ox 96 Pulse Rate (60-100) 68 Full Laps Walked 20 Partial Lap, Number of Tiles Walked 11 Total Distance Walked (ft) 1191 Interpretation Interpretation: The patient was able to ambulate 1191 feet over the course of 6 minutes on room air with no assistive devices or breaks. The patient experienced no significant desaturation or tachycardia during testing. These findings are consistent with a normal walking oximetry. Recommendations Recommendations: No supplemental oxygen is indicated at this time.
== END | disposition home or self-care (01) ==
PROVIDERS: PCP Family Medicine; Referring Provider Nurse Practitioner Acute Care; Visit Provider Nurse Practitioner Acute Care
DX: J44.9 Chronic obstructive pulmonary disease, unspecified (principal)
CPT/HCPCS: 94618

== ENCOUNTER → 2023-12-13 | Outpatient (CLI) | payer MEDICARE, OTHER, SELFPAY ==
--- NOTE | 2023-12-13 13:36 | US_ITS ---
EXAM: US RETROPERITONEAL LIMITED, RENAL CLINICAL INDICATION: RENAL LESIONS TECHNIQUE: Limited grayscale and color Doppler sonographic evaluation of the retroperitoneum was performed. COMPARISON: No relevant prior studies available. FINDINGS: RIGHT KIDNEY: The right kidney measures 10.5 x 4.9 x 5.0 cm. The right renal cortex measures 1.6 cm. There is a 3.8 x 3.3 x 3.1 cm anechoic structure on the right upper pole which appears to have an echogenic rim which may represent a calcified renal cyst. There is a second structure that measures 3.2 x 2.5 3.0 cm in the right upper pole. No hydronephrosis. No shadowing calculus. No perinephric collection is demonstrated. LEFT KIDNEY: The left kidney measures 9.8 x 5.3 x 4.6 cm. The left renal cortex measures 1.6 cm. There is an anechoic structure in the left kidney that measures 0.9 x 1.1 cm compatible with a cyst. No hydronephrosis. No shadowing calculus. No perinephric collection is demonstrated. BLADDER: The bladder measures 5.2 x 4.8 x 6.3 cm for volume of 83 mL. The bladder wall measures 4 mm. US/Kidney and Bladder IMPRESSION: Peripherally calcified anechoic structures in the right kidney compatible with calcified peripherally calcified renal cysts. There is a cyst in the left kidney. If indicated further evaluation with MRI may be beneficial. Electronically Signed: Vladimir Gonzales MD at 0:02 EDT ,
== END | disposition home or self-care (01) ==
LOC: US 13:34
PROVIDERS: PCP Family Medicine; Referring Provider Family Medicine; Visit Provider Family Medicine
DX: N28.89 Other specified disorders of kidney and ureter (principal)
CPT/HCPCS: 76770

== ENCOUNTER → 2024-01-06 | Outpatient (CLI) | payer MEDICARE, OTHER, SELFPAY ==
[2024-01-06 12:54] LABS: Absolute Lymphocyte Count 2.29 X10^3/uL (0.83-4.51); Basophil# 0.09 X10^3/uL; Basophil% 1.1 % (0-1); Eosinophil# 0.15 X10^3/uL; Eosinophils% 1.8 % (0-5); Hematocrit 44.2 % (40-54); Hemoglobin 14.2 g/dL (13.0-16.5); Lymphocyte # 2.29 X10^3/ul (0.83-4.51); Mean Corp Hgb Conc 32.1 g/dL (32-36); Mean Corpuscular Hgb 30.7 pg (27.0-32.0); Mean Corpuscular Volume 95.5 fL (80-94); Mean Platelet Vol. 10.6 fl (6.2-12.0); Monocyte# 0.93 X10^3/uL; NRBC Flagged by Analyzer 0 % (0-5); Neutrophil # 4.98 X10^3/uL (2.7-7.7); Neutrophil % 58.7 % (47-70); Platelet Count 319 K/mm3 (150-450); RBC Distribution Width CV 14.5 % (11.6-14.6); RBC Distribution Width SD 50.8 fl (35.1-43.9); Red Blood Count 4.63 M/mm3 (4.6-6.2); White Blood Count 8.5 K/mm3 (4.4-11.0)
[2024-01-06 14:52] LABS: AST(SGOT) 17 U/L (15-37); Alanine Aminotransfer ALT/SGPT 16 U/L (16-61); Albumin, Serum 3.6 g/dL (3.2-5.0); Alkaline Phosphatase 43 U/L (45-117); Anion Gap 6 (5-15); BUN 26 mg/dL (7-18); Chloride 105 mmol/L (98-107); Cholesterol 212 mg/dL (200); Creatinine, Serum 1.13 mg/dL (0.70-1.30); EST Glomerular Filtration Rate 68 mL/min (>60); Est Glom Filt Rate - Afr Amer 82 mL/min (>60); Globulin 3.5 g/dL (2.2-4.2); Glucose 99 mg/dL (74-106); High Density Lipoprotein 50 mg/dL; PSA,Total - Annual Screen 0.85 ng/mL (0.00-4.00); Potassium 4.4 mmol/L (3.5-5.1); Protein, Total 7.1 g/dL (6.4-8.2); Sodium Level 138 mmol/L (136-145); Triglycerides 136 mg/dL; Very Low Density Lipoprotein 27 mg/dL (5-40)
== END | disposition home or self-care (01) ==
LOC: BFHLAB 10:46
PROVIDERS: PCP Family Medicine; Visit Provider Family Medicine
DX: I10 Essential (primary) hypertension (principal); Z12.5 Encounter for screening for malignant neoplasm of prostate; E78.1 Pure hyperglyceridemia
CPT/HCPCS: 36415; 80053; 80061; 84153; 85025; G0103

== ENCOUNTER → 2024-02-22 | Outpatient (CLI) | payer MEDICARE, OTHER, SELFPAY ==
--- NOTE | 2024-02-22 09:44 | CT_ITS ---
EXAM: CT CHEST, LUNG CANCER SCREENING WITHOUT INTRAVENOUS CONTRAST CLINICAL INDICATION: Screening TECHNIQUE: Helically acquired images were obtained of the chest without intravenous contrast using low dose (LDCT) lung cancer screening protocol. This CT exam was performed using one or more of the following dose reduction techniques: automated exposure control, adjustment of the mA and/or kV according to patient size, and/or use of iterative reconstruction technique. COMPARISON: 02/20/2023 FINDINGS: LUNGS AND PLEURAL SPACES: There are emphysematous changes seen in both lungs. No mass. No pleural effusion or thickening. No pneumothorax. HEART: Unremarkable. Heart size is normal. No pericardial effusion. No significant coronary artery calcifications. MEDIASTINUM: Unremarkable. No mediastinal or hilar adenopathy. Esophagus is unremarkable. No hiatal hernia. THYROID: Unremarkable. No thyroid lesions. BONES/JOINTS: Unremarkable. No suspicious lytic or blastic abnormality. VASCULATURE: Unremarkable. Thoracic aorta is non-dilated. LYMPH NODES: Unremarkable. No enlarged lymph nodes. CT/Low Dose CT Lung Screening IMPRESSION: No acute pulmonary abnormality. There are diffuse emphysematous changes present. Lung-RADS score: 1 - Recommend continued annual screening with a low-dose CT (LDCT) in 12 months. Electronically Signed: Vladimir Gonzales MD at 0:06 EDT ,
== END | disposition home or self-care (01) ==
LOC: CT 09:44
PROVIDERS: PCP Family Medicine; Referring Provider Internal Medicine Critical Care Medicine; Visit Provider Internal Medicine Critical Care Medicine
DX: Z12.2 Encounter for screening for malignant neoplasm of respiratory organs (principal); F17.210 Nicotine dependence, cigarettes, uncomplicated
CPT/HCPCS: 71271

== ENCOUNTER → 2024-06-09 | Outpatient (CLI) | payer MEDICARE, OTHER, SELFPAY ==
[2024-06-09 15:26] LABS: Absolute Lymphocyte Count 2.27 X10^3/uL (0.83-4.51); Absolute Neutrophil Count 4.6 X10^3/uL (2.0-7.7); Basophil# 0.09 X10^3/uL; Basophil% 1.1 % (0-1); Eosinophil# 0.31 X10^3/uL; Eosinophils% 3.8 % (0-5); Hematocrit 43.9 % (40-54); Hemoglobin 14.2 g/dL (13.0-16.5); Lymphocyte # 2.27 X10^3/ul (0.83-4.51); Lymphocyte % 27.8 % (19-41); Mean Corp Hgb Conc 32.3 g/dL (32-36); Mean Corpuscular Hgb 30.6 pg (27.0-32.0); Mean Corpuscular Volume 94.6 fL (80-94); Mean Platelet Vol. 9.9 fl (6.2-12.0); Monocyte# 0.84 X10^3/uL; Monocyte% 10.3 % (0-10); NRBC Flagged by Analyzer 0 % (0-5); Neutrophil # 4.63 X10^3/uL (2.7-7.7); Neutrophil % 56.8 % (47-70); Platelet Count 292 K/mm3 (150-450); RBC Distribution Width CV 13.9 % (11.6-14.6); RBC Distribution Width SD 48.8 fl (35.1-43.9); Red Blood Count 4.64 M/mm3 (4.6-6.2); White Blood Count 8.2 K/mm3 (4.4-11.0)
[2024-06-09 15:53] LABS: ALB/GLOB Ratio 1.1 RATIO (0.9-2.4); AST(SGOT) 19 U/L (15-37); Alanine Aminotransfer ALT/SGPT 18 U/L (16-61); Alkaline Phosphatase 55 U/L (45-117); Anion Gap 4 (5-15); BUN 22 mg/dL (7-18); BUN/Creat Ratio 17.1 RATIO (10-20); Calcium,Total 9.2 mg/dL (8.5-10.1); Chloride 102 mmol/L (98-107); Cholesterol 134 mg/dL (200); Creatinine, Serum 1.29 mg/dL (0.70-1.30); EST Glomerular Filtration Rate 58 mL/min (>60); Est Glom Filt Rate - Afr Amer 70 mL/min (>60); Globulin 3.7 g/dL (2.2-4.2); Glucose 96 mg/dL (74-106); High Density Lipoprotein 60 mg/dL; Potassium 5.2 mmol/L (3.5-5.1); Protein, Total 7.7 g/dL (6.4-8.2); Sodium Level 137 mmol/L (136-145); Triglycerides 84 mg/dL; Very Low Density Lipoprotein 17 mg/dL (5-40)
[2024-06-09 16:36] LABS: Hepatitis C Antibody Non-Reactive (Nonreactive); Vitamin D,25 Hydroxy 26.7 ng/mL
== END | disposition home or self-care (01) ==
LOC: POLAB3 14:48
PROVIDERS: PCP Family Medicine Geriatric Medicine; Visit Provider Family Medicine Geriatric Medicine
DX: E78.5 Hyperlipidemia, unspecified (principal); I10 Essential (primary) hypertension; Z13.89 Encounter for screening for other disorder; E55.9 Vitamin D deficiency, unspecified
CPT/HCPCS: 36415; 80053; 80061; 82306; 84443; 85025; 86803

== ENCOUNTER → 2024-06-15 | Outpatient (CLI) | payer MEDICARE, OTHER, SELFPAY ==
[2024-06-15 15:01] LABS: Anion Gap 4 (5-15); BUN 21 mg/dL (7-18); BUN/Creat Ratio 16.4 RATIO (10-20); Calcium,Total 9.1 mg/dL (8.5-10.1); Chloride 104 mmol/L (98-107); Creatinine, Serum 1.28 mg/dL (0.70-1.30); EST Glomerular Filtration Rate 59 mL/min (>60); Est Glom Filt Rate - Afr Amer 71 mL/min (>60); Glucose 115 mg/dL (74-106); Potassium 3.9 mmol/L (3.5-5.1); Sodium Level 140 mmol/L (136-145)
== END | disposition home or self-care (01) ==
PROVIDERS: PCP Family Medicine Geriatric Medicine; Visit Provider Family Medicine Geriatric Medicine
DX: I10 Essential (primary) hypertension (principal)
CPT/HCPCS: 36415; 80048

== ENCOUNTER → 2024-07-17 | Outpatient (CLI) | payer MEDICARE, OTHER, SELFPAY ==
[2024-07-17 12:15] LABS: Absolute Lymphocyte Count 1.76 X10^3/uL (0.83-4.51); Absolute Neutrophil Count 4.8 X10^3/uL (2.0-7.7); Basophil# 0.08 X10^3/uL; Eosinophil# 0.22 X10^3/uL; Eosinophils% 2.8 % (0-5); Hematocrit 44.1 % (40-54); Hemoglobin 14.4 g/dL (13.0-16.5); Lymphocyte # 1.76 X10^3/ul (0.83-4.51); Lymphocyte % 22.8 % (19-41); Mean Corp Hgb Conc 32.7 g/dL (32-36); Mean Corpuscular Hgb 31.3 pg (27.0-32.0); Mean Corpuscular Volume 95.9 fL (80-94); Mean Platelet Vol. 9.9 fl (6.2-12.0); Monocyte# 0.83 X10^3/uL; Monocyte% 10.8 % (0-10); NRBC Flagged by Analyzer 0 % (0-5); Neutrophil % 62.2 % (47-70); Platelet Count 329 K/mm3 (150-450); RBC Distribution Width CV 13.2 % (11.6-14.6); RBC Distribution Width SD 46.5 fl (35.1-43.9); White Blood Count 7.7 K/mm3 (4.4-11.0)
[2024-07-17 12:56] LABS: Anion Gap 3 (5-15); BUN 16 mg/dL (7-18); BUN/Creat Ratio 12.6 RATIO (10-20); CPK Total, Creatine Kinase 48 U/L (39-308); Calcium,Total 9.7 mg/dL (8.5-10.1); Chloride 105 mmol/L (98-107); Creatinine, Serum 1.27 mg/dL (0.70-1.30); EST Glomerular Filtration Rate 59 mL/min (>60); Est Glom Filt Rate - Afr Amer 72 mL/min (>60); Glucose 101 mg/dL (74-106); Magnesium 2.7 mg/dL (1.6-2.6); Phosphorus 3.2 mg/dL (2.5-4.9); Potassium 4.3 mmol/L (3.5-5.1); Sodium Level 139 mmol/L (136-145); Troponin-I HS 11 pg/mL (3.0-78.0)
[2024-07-20 09:22] LABS: Myoglobin, Serum 29 ng/mL (28-72)
== END | disposition home or self-care (01) ==
LOC: POLAB3 11:59
PROVIDERS: PCP Family Medicine Geriatric Medicine; Visit Provider Family Medicine Geriatric Medicine
DX: R25.2 Cramp and spasm (principal); I10 Essential (primary) hypertension; R07.9 Chest pain, unspecified
CPT/HCPCS: 36415; 80048; 82550; 83735; 83874; 84100; 84484; 85025

== ENCOUNTER → 2024-08-06 | Outpatient (CLI) | payer MEDICARE, OTHER, SELFPAY ==
--- NOTE | 2024-08-06 06:49 | EKG12_ITS ---
Test Reason : CHEST PAIN Blood Pressure : */* mmHG Vent. Rate : 51 BPM Atrial Rate : 51 BPM P-R Int : 158 ms QRS Dur : 88 ms QT Int : 416 ms P-R-T Axes : 29 78 67 degrees QTcB Int : 383 ms Sinus bradycardia with Premature atrial complexes Otherwise normal ECG Confirmed by EDUIN BARRIOS, JIN ([id number]), society editor ENOCH SINGLETON ([id number]) on 08/06/2024 9:11:39 AM Referred By: Richard Howard Confirmed By: JIN DENNY MD
--- NOTE | 2024-08-06 06:49 | ECHOD_ITS ---
Reason For Study: CHEST PAIN Procedure This was a 2D Doppler, Color Flow transthoracic echocardiogram. Exam performed in department. Left Ventricle Normal LV size. Left ventricular systolic function is normal. The left ventricular ejection fraction is 60 %. No regional wall motion abnormalities noted. Right Ventricle Normal RV size. Normal systolic function. Atria Normal left atrium. Normal right atrium. Mitral Valve Normal mitral valve. Trivial eccentric mitral valve insufficiency. Tricuspid Valve Normal tricuspid valve. Mild (1+) tricuspid valve insufficiency. Pulmonary artery systolic pressure is 35 mmHg. Aortic Valve Trisinus/trileaflet aortic valve. Pulmonic Valve Normal pulmonic valve. Great Vessels Normal aortic root. The pulmonary artery is normal size. Inferior vena cava collapse with respiration. Pericardium/Pleural No pericardial effusion. MMode/2D Measurements & Calculations LVIDd: 4.9 cm IVSd: 1.0 cm LVOT diam: 2.0 cm LVIDs: 3.0 cm LVPWd: 1.0 cm LVOT area: 3.1 cm2 RVDd: 3.5 cm FS: 38.8 % asc Aorta Diam: 3.6 cm LAV(MOD-bp): 34.9 ml LVAd ap4: 24.0 cm2 LAV(MOD-bp) Indexed: 19.7 ml/m2 LVLd ap4: 7.0 cm LAV(MOD-sp2): 38.0 ml EDV(MOD-sp4): 68.5 ml LAV(MOD-sp4): 29.7 ml EDV(sp4-el): 69.8 ml LVAs ap4: 12.6 cm2 LVLs ap4: 5.7 cm ESV(MOD-sp4): 23.6 ml ESV(sp4-el): 23.4 ml EF(MOD-sp4): 65.5 % EF(sp4-el): 66.5 % LVAd ap2: 21.7 cm2 SV(MOD-sp4): 44.9 ml SV(MOD-sp2): 37.1 ml LVLd ap2: 7.5 cm SI(MOD-sp4): 25.4 ml/m2 SI(MOD-sp2): 21.0 ml/m2 EDV(MOD-sp2): 54.6 ml EDV(sp2-el): 53.7 ml LVAs ap2: 10.8 cm2 LVLs ap2: 6.2 cm ESV(MOD-sp2): 17.5 ml ESV(sp2-el): 16.0 ml EF(MOD-sp2): 68.0 % SV(sp4-el): 46.4 ml Ao sinus diam: 3.[address] Junction: 2.7 cm LA dimension(2D): 3.0 cm LA A4 area: 13.4 cm2 RA A4 area: 11.1 cm2 TAPSE: 1.9 cm Time Measurements MV dec time: 0.16 sec Doppler Measurements & Calculations MV E max wali: 71.4 cm/sec Lat Peak E' Wali: 12.7 cm/sec Med Peak E' Wali: 8.2 cm/sec MV A max wali: 98.1 cm/sec E/E' lat: 5.6 E/E' med: 8.7 MV E/A: 0.73 MV dec slope: 440.1 cm/sec2 Ao V2 max: 119.7 cm/sec LV V1 max: 96.9 cm/sec Ao max P.7 mmHg LV V1 max P.8 mmHg Ao V2 mean: 86.5 cm/sec LV V1 mean P.2 mmHg Ao mean P.3 mmHg LV V1 mean: 71.3 cm/sec Ao V2 VTI: 27.0 cm LV V1 VTI: 21.7 cm AV (velocity ratio): 0.81 ROBERT(I,D): 2.5 cm2 ROBERT(V,D): 2.5 cm2 SV(LVOT): 67.1 ml PA V2 max: 90.2 cm/sec TR max wali: 281.3 cm/sec TR max P.6 mmHg ECHO/Echo Complete Interpretation Summary Normal LV size. Left ventricular systolic function is normal. The left ventricular ejection fraction is 60 %. Pulmonary artery systolic pressure is 35 mmHg. Ordering Physician: Richard Howard Chi Referring Physician: Richard Howard Chi Performed By: Vinita Hardy RDCS
--- NOTE | 2024-08-06 09:59 | STRESSREP ---
Stress Test Report Pharmacologic myocardial perfusion stress test. 74-year-old with a history of chest pain Resting EKG demonstrates sinus bradycardia with a rate of 51 bpm. Resting blood pressure is 142/78 mmHg. 0.4 mg of regadenoson was infused per usual protocol followed by rapid intravenous saline flush injection. Continuous EKG monitoring was performed. The maximum heart rate was 81 bpm which was 55% of max impacted heart rate the maximum workload was 1 metabolic equivalent. At rest there were no ST or T wave changes noted to suggest ischemia and at peak infusion nonspecific ST changes were noted which did not meet the criteria for ischemia. No clinical angina is noted. The final blood pressure was 138/72 mmHg. Myocardial perfusion protocol. 11 point mCi of technetium 99m sestamibi was injected at rest. 0.4 mg of regadenoson was infused per usual protocol. At peak infusion 33.6 mCi of technetium 99m sestamibi was injected stress images were obtained stress and rest images were reconstructed and compared in the short axis vertical long and horizontal long axis. Gated images were also obtained. Perfusion SPECT analysis: Review of the stress images demonstrate normal uptake of tracer noted in all areas of the myocardium except for the inferior wall with reduced perfusion. The resting images similar demonstrated normal uptake of tracer noted in all areas of the myocardium except for the inferior wall with reduced perfusion. The above is suggestive of a previous inferior infarct. GI attenuation artifact cannot be excluded. Gated SPECT analysis: The gated ejection fraction is 70%. Conclusion: Normal pharmacologic myocardial perfusion stress test. Preserved ejection fraction. Previous inferior infarct is noted and cannot be completely excluded
== END | disposition home or self-care (01) ==
LOC: CVS 06:44
PROVIDERS: PCP Family Medicine Geriatric Medicine; Referring Provider Family Medicine Geriatric Medicine; Visit Provider Family Medicine Geriatric Medicine
DX: R07.9 Chest pain, unspecified (principal); R06.09 Other forms of dyspnea
CPT/HCPCS: 78452; 93005; 93017; 93306; A9500; J2785

== ENCOUNTER → 2024-09-09 | Outpatient (CLI) | payer MEDICARE, OTHER, SELFPAY ==
[2024-09-09 12:18] LABS: Absolute Neutrophil Count 4.5 X10^3/uL (2.0-7.7); Basophil# 0.06 X10^3/uL; Basophil% 0.8 % (0-1); Eosinophil# 0.25 X10^3/uL; Eosinophils% 3.4 % (0-5); Hematocrit 41.5 % (40-54); Hemoglobin 13.8 g/dL (13.0-16.5); Lymphocyte % 23.3 % (19-41); Mean Corp Hgb Conc 33.3 g/dL (32-36); Mean Corpuscular Hgb 31.2 pg (27.0-32.0); Mean Corpuscular Volume 93.7 fL (80-94); Mean Platelet Vol. 9.9 fl (6.2-12.0); Monocyte# 0.79 X10^3/uL; Monocyte% 10.8 % (0-10); NRBC Flagged by Analyzer 0 % (0-5); Neutrophil # 4.49 X10^3/uL (2.7-7.7); Neutrophil % 61.4 % (47-70); Platelet Count 297 K/mm3 (150-450); RBC Distribution Width CV 14.1 % (11.6-14.6); RBC Distribution Width SD 48.4 fl (35.1-43.9); Red Blood Count 4.43 M/mm3 (4.6-6.2); White Blood Count 7.3 K/mm3 (4.4-11.0)
[2024-09-09 12:43] LABS: D-Dimer Quantitative (DVT/PE) 0.86 FEU/ug/m (0.27-0.49)
[2024-09-09 13:30] LABS: ALB/GLOB Ratio 0.9 RATIO (0.9-2.4); AST(SGOT) 19 U/L (15-37); Alanine Aminotransfer ALT/SGPT 18 U/L (16-61); Albumin, Serum 3.6 g/dL (3.2-5.0); Alkaline Phosphatase 51 U/L (45-117); Anion Gap 5 (5-15); BUN 20 mg/dL (7-18); BUN/Creat Ratio 16.4 RATIO (10-20); Chloride 104 mmol/L (98-107); Creatinine, Serum 1.22 mg/dL (0.70-1.30); EST Glomerular Filtration Rate 62 mL/min (>60); Est Glom Filt Rate - Afr Amer 75 mL/min (>60); Globulin 4.2 g/dL (2.2-4.2); Glucose 99 mg/dL (74-106); Potassium 4.8 mmol/L (3.5-5.1); Protein, Total 7.8 g/dL (6.4-8.2); Sodium Level 139 mmol/L (136-145)
[2024-09-09 14:05] LABS: Vitamin D,25 Hydroxy 18.8 ng/mL
== END | disposition home or self-care (01) ==
LOC: POLAB3 12:02
PROVIDERS: PCP Family Medicine Geriatric Medicine; Visit Provider Family Medicine Geriatric Medicine
DX: R07.9 Chest pain, unspecified (principal); I10 Essential (primary) hypertension; E55.9 Vitamin D deficiency, unspecified
CPT/HCPCS: 36415; 80053; 82306; 83880; 84443; 85025; 85379

== ENCOUNTER → 2024-09-09 | Outpatient (CLI) | payer MEDICARE, OTHER, SELFPAY ==
--- NOTE | 2024-09-09 17:28 | CT_ITS ---
PROCEDURE: CTA CHEST W/WO CONTRAST REASON FOR EXAM: Shortness of breath on exertion. Elevated D-dimer. TECHNIQUE: CTA imaging of the chest with intravenous contrast. 3D reconstructions. CONTRAST: 100 cc of Isovue-300 was injected intravenously. COMPARISON: Comparison is made with prior study dated February 22, 2024. FINDINGS: Hardware: None. Lymph nodes: No mediastinal hilar or axillary lymphadenopathy. Heart: Coronary artery calcifications are noted. RV/LV Diameter Ratio: N/A Thoracic Aorta: No thoracic aortic aneurysm or dissection. Pulmonary Vessels: No evidence of acute pulmonary emboli through the major subsegmental branches. Most Proximal Level of Embolus (if embolus present): N/A Lungs and Airways: Hyperinflation. Emphysematous changes more prominent in the upper lobes. Pleura: No pleural effusion. No pneumothorax. Upper Abdomen: Is a 2.1 cm cyst in the posterior upper pole of the right kidney with the rim like calcification. Bones: Degenerative changes of the thoracic spine. CT/CTA Chest W/WO Contrast IMPRESSION: No evidence of pulmonary embolism. Emphysematous changes. Cyst in the upper pole of the right kidney with a calcific rim. One or more dose reduction techniques were used (e.g., Automated exposure contr ol, adjustment of the mA and/or kV according to patient size, use of iterative reconstruction technique). Reading Location: [place] [id number]
== END | disposition home or self-care (01) ==
LOC: CT 14:22
PROVIDERS: PCP Family Medicine Geriatric Medicine; Referring Provider Family Medicine Geriatric Medicine; Visit Provider Family Medicine Geriatric Medicine
DX: R07.9 Chest pain, unspecified (principal)
CPT/HCPCS: 71275; Q9967

== ENCOUNTER → 2025-02-22 | Outpatient (CLI) | payer MEDICARE, OTHER, SELFPAY ==
--- NOTE | 2025-02-22 16:30 | CT_ITS ---
PROCEDURE: LOW DOSE CT LUNG SCREENING 02/22/2025 REASON FOR EXAM: SMOKING TECHNIQUE: LOW DOSE CT LUNG SCREENING Coronal and Sagittal reconstruction series were provided. One or more dose reduction techniques were used (e.g., Automated exposure control, adjustment of the mA and/or kV according to patient size, use of iterative reconstruction technique). REFERENCE LINK: [facility] Lung-RADS RADIATION DOSE SUMMARY: CTDlvol: 3 mGy DLP: 110 mGycm COMPARISON: 09/09/2024 FINDINGS: Central airways are patent. Mild bronchial wall thickening. Moderately severe emphysema. Well inflated lungs. No consolidation, effusion, or pneumothorax. On the left, calcified nodule. On the right, no suspicious lung nodules. Unremarkable base of neck and axilla. Normal esophagus. Normal heart size. No acute vascular pathology. Thoracic spine degeneration. No acute chest wall findings. No acute upper abdominal findings. CT/Low Dose CT Lung Screening IMPRESSION: No suspicious lung nodules Lung-RADS Category: 1 Other Significant Findings: Reading Location: [id number]
== END | disposition home or self-care (01) ==
LOC: CT 16:25
PROVIDERS: PCP Family Medicine Geriatric Medicine; Referring Provider Nurse Practitioner Acute Care; Visit Provider Nurse Practitioner Acute Care
DX: F17.210 Nicotine dependence, cigarettes, uncomplicated (principal)
CPT/HCPCS: 71271

== ENCOUNTER → 2025-03-10 | Outpatient (CLI) | payer MEDICARE, OTHER, SELFPAY ==
[2025-03-10 11:50] LABS: Hematocrit 40.8 % (40-54); Hemoglobin 13.4 g/dL (13.0-16.5); Immature Granulocytes Count 0.020 X10^3/uL (0.0-0.0); Mean Corp Hgb Conc 32.8 g/dL (32-36); Mean Corpuscular Volume 94.4 fL (80-94); Mean Platelet Vol. 10.5 fl (6.2-12.0); NRBC Flagged by Analyzer 0 % (0-5); Platelet Count 256 K/mm3 (150-450); RBC Distribution Width CV 14.6 % (11.6-14.6); RBC Distribution Width SD 50.5 fl (35.1-43.9); Red Blood Count 4.32 M/mm3 (4.6-6.2); White Blood Count 9.6 K/mm3 (4.4-11.0)
[2025-03-10 12:59] LABS: AST(SGOT) 20 U/L (<=37); Alanine Aminotransfer ALT/SGPT 14 U/L (<=46); Albumin, Serum 3.9 g/dL (3.4-4.8); Alkaline Phosphatase 48 U/L (40-129); Anion Gap 11 (5-15); BUN 19 mg/dL (4-19); BUN/Creat Ratio 14.8 RATIO (10-20); Calcium,Total 9.3 mg/dL (7.6-11.0); Carbon Dioxide 27.8 mmol/L (21.0-32.0); Chloride 104 mmol/L (98-108); Globulin 2.8 g/dL (2.2-4.2); Glucose 100 mg/dL (70-99); Potassium 4.1 mmol/L (3.3-5.1); Vitamin D,25 Hydroxy 17.7 ng/mL (30-100)
--- OUTSIDE RECORDS SUMMARY | 2025-03-10 16:44 | XMS RPT_ITS | CCD ---
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 Betty Winslow Primary Care Provider [phone] Dr. Betty Winslow Referring Provider Dr. Luis Carlos Newman Attending Provider Betty Winslow DO Primary Care Provider BETTY WINSLOW Primary Care Unavailable TYRESE SAVAGE P Attending Unavailable TYRESE SAVAGE P Admitting Unavailable Dr. Betty Winslow Primary Care Provider [phone] Dr. Betty Winslow Referring Provider Jerome DYE AND CHEMICAL COORDINATOR, DYE AND CHEMICAL COORDINATOR-C Jeanine Attending Provider BETTY WINSLOW Primary Care Unavailable LASHAE STINSON Attending Unavailable BETTY WINSLOW Primary Care Unavailable MARISSA, TYRESE P Referring Unavailable BETTY WINSLOW Primary Care Unavailable MARISSA, TYRESE P Attending Unavailable BETTY WINSLOW Primary Care Unavailable JAMMIE DANIEL Attending Unavailable TIFF OHARA Referring Unavailable BETTY WINSLOW Primary Care Unavailable JAMMIE DANIEL Attending Unavailable TIFF OHARA Attending Unavailable BETTY WINSLOW Primary Care Unavailable Dr. Betty Winslow Primary Care Provider [phone] Dr. Betty Winslow Referring Provider LARA Morales Attending Provider Jerome DYE AND CHEMICAL COORDINATOR, DYE AND CHEMICAL COORDINATOR-C Jeanine Referring Provider Jerome DYE AND CHEMICAL COORDINATOR, DYE AND CHEMICAL COORDINATOR-C Jeanine Other Provider Dr. Jah Shell Attending Provider Dr. Luis Carlos Newman Attending Provider [phone] Betty Winslow DO Elena Primary Care Provider Jerome DYE AND CHEMICAL COORDINATOR-C, Jeanine Attending Provider Jerome AYOUB-C, Jeanine Referring Provider Dr. Richard Howard MD, Chi Primary Care Provider Betty Winslow Primary Care Unavailable Betty Winslow Referring Unavailable Jerome DYE AND CHEMICAL COORDINATOR, Jeanine Attending Unavailable Dorothy Mascoutah Attending Unavailable Lee, Richard Chi Primary Care Unavailable Lee, Richard Chi Attending Unavailable Lee, Richard Chi Primary Care Unavailable Lee, Richard Chi Primary Care Unavailable Lee, Richard Chi Attending Unavailable Lee, Richard Chi Primary Care Unavailable Lee, Richard Chi Attending Unavailable Jerome DYE AND CHEMICAL COORDINATOR, Jeanine Attending Unavailable Jerome DYE AND CHEMICAL COORDINATORJeanine Referring Unavailable Lee, Richard Chi Primary Care Unavailable Lee, Richard Chi Attending Unavailable Lee, Richard Chi Referring Unavailable Lee, Richard Chi Primary Care Unavailable Lee, Richard Chi Attending Unavailable Lee, Richard Chi Primary Care Unavailable Lee, Richard Chi Attending Unavailable Lee, Richard Chi Referring Unavailable Lee, Richard Chi Primary Care Unavailable Medications Current Medications Medication Drug Class(es) Dates Sig (Normalized) Sig (Original) [id number] 200 actuat albuterol 0.09 mg/actuat metered dose inhaler (10 sources) beta2-Adrenergic Agonist Start: 04-13-2020 albuterol HFA (PROVENTIL HFA, VENTOLIN HFA) 90 mcg/actuation inhaler Inhale as instructed. 04/13/2020 Active Start: 04-13-2020 Albuterol Sulf ate 90 mcg/actuation HFA aerosol inhaler Active 2 NMA INHALATION EVERY 6 HOURS as needed for shortness of breath or wheezing 22 08April 13, 2020 12:00am Chronic obstructive pulmonary disease, unspecified Start: 04-13-2020 take 1 puff(s) by in halation every six hours Albuterol Sulfate Active 2 PUFF INHALATION EVERY 6 HOURS April 12, 2020 11:00pm Comment on above: Inhale as instructed . 24 hr dilTIAZem hydrochloride 180 mg extended release oral capsule (7 sources) Calcium Channel Jaylene Start: 0 take 1 capsule by mouth every twenty-four hours at bedtime Diltiazem Hcl 180 MG capsule,extended release 24 hr Active 180 mg PO AT BEDTIME September 25, 2019 1:00am Start: 07-25-2018 take 180 mg by mouth at bedtim e Diltiazem Hcl Active 180 MG PO AT BEDTIME September 25, 2019 12:00am Comment on above: Take 180 mg by mouth once daily. dorzolamide 20 mg/ml / timolol 5 mg/ml ophthalmic solution (7 sources) Carbonic Anhydrase Inhibitor, beta-Adrenergic Jaylene Start: 12-23-2024 End: 02-07-2025 take 1 drop(s) into the eye(s) twice daily dorzolamide-timolol (COSOPT) 22.3-6.8 mg/mL ophthalmic solution Use 1 drop in the left eye two times a day. 10 mL 02/08/2025 Active Start: 11-21-2022 End: 12-10-2023 take 1 drop(s) into the eye(s) twice daily dorzolamide-timolol (COSOPT) 22.3-6.8 mg/mL ophthalmic solution Use 1 Drop in the left eye two times a day. 10 mL 11 12/10/2023 Active Start: 11-21-2022 take 1 drop(s) into the eye(s) twice daily dorzolamide-timolol (COSOPT) 22.3-6.8 mg/mL ophthalmic solution Use 1 Drop in the left eye twice daily. 10 mL 11 11/21/2022 Active Comment on above: Use 1 Drop in the le ft eye twice daily. Doxylamine (6 sources) doxylamine succi seble (SLEEP AID ORAL) Take by mouth. Active doxylamine succi seble (SLEEP AID ORAL) Take by mouth. 0 Active Comment on above: Take by mouth. Fluticasone-Umeclidin -Vilanter (20 sources) Anticholinergic, Corticosteroid, beta2-Adrenergic Agonist Start: 10-25-2023 Scjfaalxfzy-Nyjmavyid-Giqqv ter (Trelegy Ellipta) 100-62.5-25 mcg blister with device Active 1 NMA INHALATION DAILY 3 October 25, 2023 9:42am Stage 3 severe COPD by GOLD classification Asthma-chronic obstructive pulmonary disease overlap syndrome Chronic obstructive pulmonary disease, unspecified Start: 08-15-2023 End: 10-25-2023 Rojilzoekbh-Vaegjrvst-Zjboae er (Trelegy Ellipta) 100-62.5-25 mcg blister with device Discontinued 1 NMA INHALATION DAILY 3 3 August 15, 2023 1:29pm October 25, 2023 9:42am Stage 3 severe COPD by GOLD classification Asthma-chronic obstructive pulmonary disease overlap syndrome Chronic obstructive pulmonary disease, unspecified Start: 02-12-2022 End: 08-15-2023 Pxgfuurfbqq-Wdmjcawwm-Mdrqlu er (Trelegy Ellipta) 100-62.5-25 mcg blister with device Discontinued 1 NMA INHALATION DAILY 3 3 February 12, 2022 9:41am August 15, 2023 1:29pm Stage 3 severe COPD by GOLD classification Asthma-chronic obstructive pulmonary disease overlap syndrome Chronic obstructive pulmonary disease, unspecified Start: 02-12-2022 Fluticasone-Um eclidin-Vilanter (Trelegy Ellipta) 100-62.5-25 mcg blister with device Active 1 INH INHALATION DAILY 3 February 12, 2022 8:41am Start: 11-20-2021 End: 02-12-2022 Jjbzdxhfntf-Cfaepnafg-Akmuea er (Trelegy Ellipta) 100-62.5-25 mcg blister with device Discontinued 1 NMA INHALATION DAILY 60 5 November 20, 2021 2:02pm February 12, 2022 9:41am Stage 3 severe COPD by GOLD classification Asthma-chronic obstructive pulmonary disease overlap syndrome Chronic obstructive pulmonary disease, unspecified Start: 11-20-2021 End: 02-12-2022 Voxzlafkffu-Hjapwmoeu-Rvfhqs er (Trelegy Ellipta) 100-62.5-25 mcg blister with device Discontinued 1 INH INHALATION DAILY 60 November 20, 2021 1:02pm February 12, 2022 8:41am Start: 11-20-2021 Fluticasone-Um eclidin-Vilanter (Trelegy Ellipta) 100-62.5-25 mcg blister with device Active 1 INH INHALATION DAILY 60 November 20, 2021 2:02pm Start: 01-27-2021 End: 11-20-2021 Hisfczblpbl-Byphrshxi-Vthouh er (Trelegy Ellipta) 100-62.5-25 mcg blister with device Discontinued 1 NMA INHALATION DAILY 60 5 January 27, 2021 3:12pm November 20, 2021 2:02pm Stage 3 severe COPD by GOLD classification Asthma-chronic obstructive pulmonary disease overlap syndrome Chronic obstructive pulmonary disease, unspecified Start: 01-27-2021 End: 11-20-2021 Ryrsbiolhml-Bszmerfwx-Hxqfaa er (Trelegy Ellipta) 100-62.5-25 mcg blister with device Discontinued 1 INH INHALATION DAILY 60 January 27, 2021 2:12pm November 20, 2021 1:02pm Start: 01-27-2021 End: 11-20-2021 Ixkzjzpqtqk-Osfpoawui-Euujfb er (Trelegy Ellipta) 100-62.5-25 mcg blister with device Discontinued 1 INH INHALATION DAILY 60 January 27, 2021 3:12pm November 20, 2021 2:02pm Start: 01-04-2021 End: 01-27-2021 Opzsyquavjr-Hnvtnpjfy-Nzbapu er (Trelegy Ellipta) 100-62.5-25 mcg blister with device Discontinued 1 NMA INHALATION DAILY 60 5 January 04, 2021 9:39am January 27, 2021 3:12pm Stage 3 severe COPD by GOLD classification Asthma-chronic obstructive pulmonary disease overlap syndrome Chronic obstructive pulmonary disease, unspecified Start: 01-04-2021 End: 01-27-2021 Lepywinnfgg-Kzunzcbay-Zvuzun er (Trelegy Ellipta) 100-62.5-25 mcg blister with device Discontinued 1 INH INHALATION DAILY 60 January 04, 2021 8:39am January 27, 2021 2:12pm Start: 01-04-2021 End: 01-27-2021 Hnviphvrrot-Itpwknovw-Rltyty er (Trelegy Ellipta) 100-62.5-25 mcg blister with device Discontinued 1 INH INHALATION DAILY 60 January 04, 2021 9:39am January 27, 2021 3:12pm Start: 10-11-2020 End: 01-04-2021 Cusjkqodljq-Hzevqnpmq-Kfbuzh er (Trelegy Ellipta) 100-62.5-25 mcg blister with device Discontinued 1 NMA INHALATION DAILY 3 3 October 11, 2020 11:27am January 04, 2021 9:41am Chronic obstructive pulmonary disease, unspecified J44.9 COPD SLN [id number] Start: 10-11-2020 End: 01-04-2021 Pbozbfseppz-Orvrmmpma-Czdkhn er (Trelegy Ellipta) 100-62.5-25 mcg blister with device Discontinued 1 INH INHALATION DAILY 3 October 11, 2020 10:27am January 04, 2021 8:41am J44.9 COPD SLN 35.032895 Start: 10-11-2020 End: 01-04-2021 Srhsyhddrni-Wquuerrll-Filoii er (Trelegy Ellipta) 100-62.5-25 mcg blister with device Discontinued 1 INH INHALATION DAILY 3 October 11, 2020 11:27am January 04, 2021 9:41am J44.9 COPD SLN 35.071102 Start: 07-19-2020 End: 10-11-2020 Txmdrqqohkl-Vtkaipsyk-Ykhzts er (Trelegy Ellipta) 100-62.5-25 mcg blister with device Discontinued 1 INH INHALATION DAILY 180 July 19, 2020 10:57am October 11, 2020 11:27am J44.9 COPD SLN [id number] Start: 07-19-2020 End: 10-11-2020 Firrappinqn-Ahmbrxosu-Epttue er (Trelegy Ellipta) 100-62.5-25 mcg blister with device Discontinued 1 NMA INHALATION DAILY 180 July 19, 2020 1:00am October 11, 2020 11:27am Chronic obstructive pulmonary disease, unspecified J44.9 COPD SLN [id number] Start: 07-19-2020 End: 10-11-2020 Wzcuxgrjwyo-Juymmevwr-Tduics er (Trelegy Ellipta) 100-62.5-25 mcg blister with device Discontinued 1 INH INHALATION DAILY 180 July 19, 2020 12:00am October 11, 2020 10:27am J44.9 COPD SLN 35.793282 Start: 07-12-2020 End: 10-11-2020 Wbqirozlmmb-Bemgomutb-Wmhakv er (Trelegy Ellipta) 100-62.5-25 mcg blister with device Discontinued 1 NMA INHALATION DAILY 60 3 July 12, 2020 11:47am October 11, 2020 11:12am Chronic obstructive pulmonary disease, unspecified J44.9 COPD SLN:[id number] Start: 07-12-2020 End: 10-11-2020 Zfcmvwbxoks-Tghyyxsxq-Fhrnxk er (Trelegy Ellipta) 100-62.5-25 mcg blister with device Discontinued 1 INH INHALATION DAILY 60 July 12, 2020 10:47am October 11, 2020 10:12am J44.9 COPD SLN:[id number] Start: 07-12-2020 End: 10-11-2020 Rwqtymuuwae-Ovpabvamr-Wwwxsl er (Trelegy Ellipta) 100-62.5-25 mcg blister with device Discontinued 1 INH INHALATION DAILY 60 July 12, 2020 11:47am October 11, 2020 11:12am J44.9 COPD SLN:35.481316 Start: 04-13-2020 End: 07-12-2020 Nztvtwwkvwd-Zpqfdbelq-Yetafi er (Trelegy Ellipta) 100-62.5-25 mcg blister with device Discontinued 1 INH INHALATION DAILY 60 April 13, 2020 9:46am July 12, 2020 11:50am Start: 04-13-2020 End: 07-12-2020 Dygthplcfyx-Hqwqavhzl-Vadbwk er (Trelegy Ellipta) 100-62.5-25 mcg blister with device Discontinued 1 NMA INHALATION DAILY 60 5 April 13, 2020 12:00am July 12, 2020 11:50am Start: 04-13-2020 End: 07-12-2020 Zsmfhwpclbe-Lynheocku-Vqdxbf er (Trelegy Ellipta) 100-62.5-25 mcg blister with device Discontinued 1 INH INHALATION DAILY 60 April 12, 2020 11:00pm July 12, 2020 10:50am fluticasone/umeclidin/vilant er (TRELEGY ELLIPTA INHALATION) (6 sources) fluticasone/umec lidin/vilanter (TRELEGY ELLIPTA INHALATION) Inhale as instructed as needed. Active fluticasone/umec lidin/vilanter (TRELEGY ELLIPTA INHALATION) Inhale as instructed as needed. 0 Active Comment on above: Inhale as instructed as needed. hydroCHLOROthiazide 25 mg oral tablet (13 sources) Thiazide Diuretic Start : 07-25 take 1 tablet by mouth once daily Hydrochlorothiazide 25 MG tablet Active 25 mg PO DAILY September 25, 2019 1:00am Comment on above: Take 25 mg by mouth once daily. hydrOXYzine pamoate 25 mg oral capsule (11 sources) Antihistamine Start : 09-29 take 2 capsules by mouth once daily at bedtime hydrOXYzine pamoate (VISTARIL) 25 mg capsule TAKE 2 CAPSULES BY MOUTH EVERY DAY AT BEDTIME 09/29/2022 Active Start: 09-24-2022 take 1 capsule by mo uth twice daily Hydroxyzine Pamoate 25 mg capsule Active 25 mg PO TWICE A DAY 14 0 September 24, 2022 1:00am anxiety Comment on above: TAKE 2 CAPSULES BY M OUTH EVERY DAY AT BEDTIME lisinopril 10 mg oral tablet (13 sources) Angiotensin Converting Enzyme Inhibitor Start: 9 take 1 tablet by mouth at bedtime Lisinopril 10 MG tablet Active 10 mg PO AT BEDTIME September 25, 2019 1:00am Comment on above: Take 1 tablet by mikael once daily. predniSONE 20 mg oral tablet (7 sources) Start: 3 predniSONE (DELTASONE) 20 mg tablet 06/09/2023 Active Start: 06-09-2023 End: 07-02-2023 take 2 tablets by mouth once daily Prednisone 20 mg tablet Discontinued 40 mg PO DAILY 10 June 09, 2023 12:00am July 02, 2023 11:01am Start: 06-09-2023 End: 07-02-2023 take 40 mg by mouth once daily Prednisone Discontinued 40 MG PO DAILY June 08, 2023 11:00pm July 02, 2023 10:01am rosuvastatin 10 mg oral capsule (1 source) HMG-CoA Reductase Inhibitor Start: 03-09-2024 Rosuvastatin 10 mg tablet Active mg PO March 09, 2024 12:00am Completed/Discontinued Medications Medication Drug Class(es) Dates Sig (Normalized) Sig (Original) amLODIPine 10 mg / benazepril hydrochloride 20 mg oral capsule (1 source) Dihydropyridine Calcium Channel Jaylene, Angiotensin Converting Enzyme Inhibitor Start: 11-16-2017 take 1 capsule by mouth once as needed amLODIPine-benazep ril (LOTREL) 10-20 mg per capsule Take 1 capsule by mouth as needed. 0 11/16/2017 Active Comment on above: Take 1 capsule by mo [facility] as needed. aspirin 81 mg delayed release oral tablet (1 source) Platelet Aggregation Inhibitor, Nonsteroidal Anti-inflammatory Drug take 1 tablet by mouth once daily aspirin, enteric coated (ASPIRIN, ENTERIC COATED) 81 mg EC tablet Take 81 mg by mouth once daily. 0 Active Comment on above: Take 81 mg by mouth once daily. erythromycin 0.005 mg/mg ophthalmic ointment (2 sources) Macrolide, Macrolide Antimicrobial End: 11-06-2022 erythromycin (ROMYCIN) 5 mg/gram (0.5 %) ophthalmic ointment Use 1 application in the left eye daily at bedtime. 0 11/06/2022 Discontinued Comment on above: Use 1 application in the left eye daily at bedtime. ibuprofen 600 mg oral tablet (1 source) Nonsteroidal Anti-inflammatory Drug Start: 11-20-2017 ibuprofen (MOTRIN) 600 mg tablet Take 1 tablet by mouth as needed. 0 11/20/2017 Active Comment on above: Take 1 tablet by mikael as needed. latanoprost 0.05 mg/ml ophthalmic solution (2 sources) Prostaglandin Analog End: 11-06-2022 take 1 drop(s) into the eye(s) once daily at bedtime latanoprost (XALATAN) 0.005 % ophthalmic solution Use 1 Drop in the left eye daily at bedtime. 0 11/06/2022 Discontinued Comment on above: Use 1 Drop in the le ft eye daily at bedtime. oxyCODONE hydrochloride 5 mg oral tablet (4 sources) Opioid Agonist Start: 06-09-2023 End: 07-02-2023 take 1 tablet by mouth every eight hours as needed for pain Oxycodone 5 mg tablet Discontinued 5 mg PO Q8H as needed for pain 10 3 0 June 09, 2023 July 02, 2023 11:01am Acute low back pain Low back pain, unspecified phenylephrine hydrochloride 25 mg/ml ophthalmic solution (2 sources) alpha-1 Adrenergic Agonist Start: 06-10-2023 End: 06-11-2023 PHENYLephrine 2.5 % 1 Drop (AK-DILATE, VALERIA-SYNEPHRINE) Start: 11-21-2022 End: 11-22-2022 PHENYLephrine 2.5 % 1 Drop ( AK-DILATE, VALERIA-SYNEPHRINE) prednisoLONE acetate 10 mg/ml ophthalmic suspension (2 sources) Corticosteroid Start: 07-17-2019 End: 11-06-2022 prednisoLONE acetate (PRED FORTE, ECONOPRED PLUS) 1 % ophthalmic suspension Use 1 Drop in the left eye twice daily. 1 Bottle 0 07/17/2019 11/06/2022 Discontinued Comment on above: Use 1 Drop in the le ft eye twice daily. proparacaine hydrochloride 5 mg/ml ophthalmic solution (2 sources) Local Anesthetic Start: 06-10-2023 End: 06-11-2023 proparacaine 0.5 % 1 Drop (ALCAINE) Start: 11-21-2022 End: 11-22-2022 proparacaine 0.5 % 1 Drop (A LCAINE) tropicamide 10 mg/ml ophthalmic solution (2 sources) Anticholinergic Start: 06-10-2023 End: 06-11-2023 tropicamide 1 % 1 Drop (MYDRIACYL) Start: 11-21-2022 End: 11-22-2022 tropicamide 1 % 1 Drop (MYDR IACYL) Problems Active Problems Problem Classification Problem Date Documented Date Episodic/Chronic Anxiety disorders (12 sources) Anxiety; Translations: [Anxiety disorder, unspecified] Onset: 10-19-2022 09-24-2022 Chronic Aortic; peripheral; and visceral artery aneurysms (9 sources) Aneurysm of infrarenal abdominal aorta ; Translations: [Aneurysm of infrarenal abdominal aorta] 06-09-2023 Chronic Blindness and vision defects (3 sources) Bilateral regular astigmatism; Translations: [Regular astigmatism, bilateral] Onset: 11-30-2022 Episodic Cataract (7 sources) Senile combined form cataract of right eye; Translations: [Combined forms of age-related cataract, right eye] Onset: 11-30-2022 Chronic Chronic obstructive pulmonary disease and bronchiectasis (20 sources) Asthma-chronic obstructive pulmonary disease overlap syndrome; Translations: [Chronic obstructive pulmonary disease, unspecified] Onset: 10-19-2022 02-12-2022 Chronic Comment on above: FEV1 48% Disorders of lipid metabolism (1 source) Hyperlipidemia, unspecified; Translations: [Hyperlipidemia, unspecified] Onset: 07-01-2024 Chronic Essential hypertension (9 sources) Hypertensive disorder; Translations: [Essential (primary) hypertension] Onset: 02-10-2018 02-10-2018 Chronic Glaucoma (11 sources) Glaucoma associated with ocular trauma; Translations: [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, left eye, indeterminate stage] Onset: 02-04-2018 02-18-2018 Chronic Other aftercare (1 source) Surgical follow-up; Translations: [Encounter for other specified surgical aftercare] Episodic Other diseases of kidney and ureters (4 sources) Cyst of kidney; Translations: [Cyst of kidney, acquired] 06-09-2023 Episodic Other eye disorders (4 sources) Bullous keratopathy, left eye; Translations: [Bullous keratopathy] Onset: 11-30-2022 Chronic Other eye disorders (3 sources) History of penetrating keratoplasty; 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] Chronic Other eye disorders (1 source) Corneal transplant status; 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)] Onset: 11-30-2022 Chronic Other lower respiratory disease (6 sources) Dyspnea; Translations: [Dyspnea, unspecified] 09-24-2022 Episodic Respiratory failure; insufficiency; arrest (adult) (1 source) Respiratory failure; insufficiency; arrest (adult); Translations: [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] Onset: 05-02-2018 Screening and history of mental health and substance abuse codes (7 sources) Ex-smoker; Translations: [Personal history of nicotine dependence] Onset: 10-19-2022 10-19-2022 Episodic Spondylosis; intervertebral disc disorders; other back problems (4 sources) Acute low back pain; Translations: [Acute low back pain] 06-09-2023 Episodic Sprains and strains (6 sources) Low back strain; Translations: [Strain of muscle, fascia and tendon of lower back, initial encounter] 11-17-2017 Episodic Substance-related disorders (9 sources) Cigarette smoker ; Translations: [Nicotine dependence, cigarettes, uncomplicated] Onset: 02-25-2025 08-15-2022 Chronic Comment on above: Quit 2021 Past or Other Problems Problem Classification Problem Date Documented Da te Episodic/Chronic Cardiac dysrhythmias (3 sources) Bradycardia; Translations: [Bradycardia, unspecified] Onset: 02-10-2018 Resolved: 10-19-2022 02-10-2018 Episodic Complication of device; implant or graft (10 sources) Corneal graft failure; 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] Onset: 05-02-2018 05-02-2018 Episodic Nonspecific chest pain (1 source) Chest pain, unspecified; Translations: [Chest pain, unspecified] Onset: 09-25-2024 Episodic Other aftercare (1 source) Encounter for other specified surgical aftercare; Translations: [Aftercare following surgery] Onset: 11-06-2022 Episodic Other connective tissue disease (1 source) Cramp and spasm; Translations: [Cramp and spasm] Onset: 08-20-2024 Episodic Other eye disorders (7 sources) Central corneal opacity, left eye; Translations: [Central opacity of cornea] Onset: 05-02-2018 05-02-2018 Episodic Other skin disorders (3 sources) Disorder of subcutaneous tissue; Translations: [Disorder of the skin and subcutaneous tissue, unspecified] Onset: 10-30-2022 Resolved: 10-30-2022 Episodic Other skin disorders (2 sources) Disorder of the skin and subcutaneous tissue, unspecified; Translations: [Lesion of subcutaneous tissue] Onset: 10-08-2022 Episodic Results Test Name Value Interpretation Reference Range Facility Low Dose CT Lung Screeningon 02-22-[address] Lung Screening [facility] Imaging Services [address] [place] [id number] Lung Screening MR#: [id number] Acct: [id number] Name: LAYNE VASQUEZ Rep #: [id number] : 1950 M 74 From: Geronimo Alberts MD PCP: Dr. Richard Howard MD [facility] Study: Low Dose CT Lung Screening Date of Exam: 02/22 Exam# [id number] Ordering Dr: Jeanine Cano DYE AND CHEMICAL COORDINATOR DYE AND CHEMICAL COORDINATOR-C PROCEDURE: LOW DOSE CT LUNG SCREENING 02/22/2025 REASON FOR EXAM: SMOKING TECHNIQUE: LOW DOSE CT LUNG SCREENING Coronal and Sagittal reconstruction series were provided. One or more dose reduction techniques were used (e.g., Automated exposure control, adjustment of the mA and/or kV according to patient size, use of iterative reconstruction technique). REFERENCE LINK: [employer] Lung-RADS RADIATION DOSE SUMMARY: CTDlvol: 3 mGy DLP: 110 mGycm COMPARISON: 09/09/2024 FINDINGS: Central airways are patent. Mild bronchial wall thickening. Moderately severe emphysema. Well inflated lungs. No consolidation, effusion, or pneumothorax. On the left, calcified nodule. On the right, no suspicious lung nodules. Unremarkable base of neck and axilla. Normal esophagus. Normal heart size. No acute vascular pathology. Thoracic spine degeneration. No acute chest wall findings. No acute upper abdominal findings. CT/Low Dose CT Lung Screening IMPRESSION: No suspicious lung nodules Lung-RADS Category: 1 Other Significant Findings: Reading Location: RAD-ALBRETS-2 CC: NAVARRO Cano; Dr. 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, [address] CBC W/Diff, Automatedon Absolute Lymph 1.70 X10 3/uL Normal 0.83-4.51 [facility] Comment on above: Performed By: #### L 503.6620, L500.4050, L300.8000, L501.9520, L100.0100, L506.1000 ####[facility] [id number] [place], [address] Absolute Neut 4.5 X10 3/uL Normal 2.0-7.7 [facility] Comment on above: Performed By: #### L 503.6620, L500.4050, L300.8000, L501.9520, L100.0100, L506.1000 ####[facility] [id number] [place], [address] Basophils/100 WBC (Bld) 0.8 % Normal 0-1 [facility] Comment on above: Performed By: #### L 503.6620, L500.4050, L300.8000, L501.9520, L100.0100, L506.1000 ####[facility] [id number] [place], [address] Eosinophils/100 WBC (Bld) 3.4 % Normal 0-5 [facility] Comment on above: Performed By: #### L 503.6620, L500.4050, L300.8000, L501.9520, L100.0100, L506.1000 ####[facility] [id number] [place], [address] Erythrocyte distribution width (RBC) [Ratio] 14.1 % Normal 11.6-14.6 [facility] Comment on above: Performed By: #### L 503.6620, L500.4050, L300.8000, L501.9520, L100.0100, L506.1000 ####[facility] [address] [place], [address] Hematocrit (Bld) [Volume fraction] 41.5 % Normal 40-54 [facility] Comment on above: Performed By: #### L 503.6620, L500.4050, L300.8000, L501.9520, L100.0100, L506.1000 ####[facility] [address] [place], [address] Hemoglobin (Bld) [Mass/Vol] 13.8 g/dL Normal 13.0-16.5 [facility] Comment on above: Performed By: #### L 503.6620, L500.4050, L300.8000, L501.9520, L100.0100, L506.1000 ####[facility] [address] [place], [address] IG% 0.300 Normal 0.0-0.9 [facility] Comment on above: Result Comment: IG% - Immature Granulocytes (promyelocytes, myelocytes and metamyelocytes) > 1% indicates that a LEFT SHIFT is Present. Performed By: #### L 503.6620, L500.4050, L300.8000, L501.9520, L100.0100, L506.1000 ####[facility] [address] [place], [address] Lymphocytes/100 WBC (Bld) 23.3 % Normal 19-41 [facility] Comment on above: Performed By: #### L 503.6620, L500.4050, L300.8000, L501.9520, L100.0100, L506.1000 ####[facility] [address] [place], [address] MCH (RBC) [Entitic mass] 31.2 pg Normal 27.0-32.0 [facility] Comment on above: Performed By: #### L 503.6620, L500.4050, L300.8000, L501.9520, L100.0100, L506.1000 ####[facility] [address] [place], [address] MCHC (RBC) [Mass/Vol] 33.3 g/dL Normal 32-36 [facility] Comment on above: Performed By: #### L 503.6620, L500.4050, L300.8000, L501.9520, L100.0100, L506.1000 ####[facility] [address] [place], [address] MCV (RBC) [Entitic vol] 93.7 fL Normal 80-94 [facility] Comment on above: Performed By: #### L 503.6620, L500.4050, L300.8000, L501.9520, L100.0100, L506.1000 ####[facility] [address] [place], [address] Monocytes/100 WBC (Bld) 10.8 % High 0-10 [facility] Comment on above: Performed By: #### L 503.6620, L500.4050, L300.8000, L501.9520, L100.0100, L506.1000 ####[facility] [address] [place], [address] Neutrophils/100 WBC (Bld) 61.4 % Normal 47-70 [facility] Comment on above: Performed By: #### L 503.6620, L500.4050, L300.8000, L501.9520, L100.0100, L506.1000 ####[facility] [address] [place], [address] Nucleated RBC (Bld) [#/Vol] 0 10*3/uL Normal 0-5 [facility] Comment on above: Performed By: #### L 503.6620, L500.4050, L300.8000, L501.9520, L100.0100, L506.1000 ####[facility] [address] [place], [address] Platelet mean volume (Bld) [Entitic vol] 9.9 fL Normal 6.2-12.0 [facility] Comment on above: Performed By: #### L 503.6620, L500.4050, L300.8000, L501.9520, L100.0100, L506.1000 ####[facility] [address] [place], [address] Platelets (Bld) [#/Vol] 297 10*3/uL Normal 150-450 [facility] Comment on above: Performed By: #### L 503.6620, L500.4050, L300.8000, L501.9520, L100.0100, L506.1000 ####[facility] [address] [place], [address] RBC (Bld) [#/Vol] 4.43 10*6/uL Low 4.6-6.2 [facility] Comment on above: Performed By: #### L 503.6620, L500.4050, L300.8000, L501.9520, L100.0100, L506.1000 ####[facility] [address] [place], [address] RDW SD 48.4 fl High 35.1-43.9 [facility] Comment on above: Performed By: #### L 503.6620, L500.4050, L300.8000, L501.9520, L100.0100, L506.1000 ####[facility] [address] [place], [address] WBC (Bld) [#/Vol] 7.3 10*3/uL Normal 4.4-11.0 [facility] Comment on above: Performed By: #### L 503.6620, L500.4050, L300.8000, L501.9520, L100.0100, L506.1000 ####[facility] [address] [place], [address] CTA Chest W/WO Contraston CTA Chest W/WO Contrast [facility] Imaging Services [address] [place] [address] CTA Chest W/WO Contrast MR#: [id number] Acct: [id number] Name: LAYNE VASQUEZ Rep #: [id number] : 1950 M 74 From: Ravindra zavala MD PCP: Dr. Richard Howard MD Status: REG CLI Study: CTA Chest W/WO Contrast Date of Exam: 09/09/24 Exam# [id number] Ordering Dr: Richard Howard MD PROCEDURE: CTA CHEST W/WO CONTRAST REASON FOR EXAM: Shortness of breath on exertion. Elevated D-dimer. TECHNIQUE: CTA imaging of the chest with intravenous contrast. 3D reconstructions. CONTRAST: 100 cc of Isovue-300 was injected intravenously. COMPARISON: Comparison is made with prior study dated February 22, 2024. FINDINGS: Hardware: None. Lymph nodes: No mediastinal hilar or axillary lymphadenopathy. Heart: Coronary artery calcifications are noted. RV/LV Diameter Ratio: N/A Thoracic Aorta: No thoracic aortic aneurysm or dissection. Pulmonary Vessels: No evidence of acute pulmonary emboli through the major subsegmental branches. Most Proximal Level of Embolus (if embolus present): N/A Lungs and Airways: Hyperinflation. Emphysematous changes more prominent in the upper lobes. Pleura: No pleural effusion. No pneumothorax. Upper Abdomen: Is a 2.1 cm cyst in the posterior upper pole of the right kidney with the rim like calcification. Bones: Degenerative changes of the thoracic spine. CT/CTA Chest W/WO Contrast IMPRESSION: No evidence of pulmonary embolism. Emphysematous changes. Cyst in the upper pole of the right kidney with a calcific rim. One or more dose reduction techniques were used (e.g., Automated exposure control, adjustment of the mA and/or kV according to patient size, use of iterative reconstruction technique). Reading Location: [place] [address] CC: Dr. Richard Howard MD Table Cut Off Saw Operator: Signed Normal [facility] Comprehensive Metabolic Prof ilon 09-09-2024 Albumin [Mass/Vol] 3.6 g/dL Normal 3.2-5.0 [facility] Comment on above: Performed By: #### L 503.6620, L500.4050, L300.8000, L501.9520, L100.0100, L506.1000 ####[facility] [address] [place], [address] Albumin/Globulin [Mass ratio] 0.9 {ratio} Normal 0.9-2.4 [facility] Comment on above: Performed By: #### L 503.6620, L500.4050, L300.8000, L501.9520, L100.0100, L506.1000 ####[facility] [address] [place], [address] ALK P 51 U/L Normal 45-117 [facility] Comment on above: Performed By: #### L 503.6620, L500.4050, L300.8000, L501.9520, L100.0100, L506.1000 ####[facility] [address] [place], [address] ALT [Catalytic activity/Vol] 18 U/L Normal 16-61 [facility] Comment on above: Performed By: #### L 503.6620, L500.4050, L300.8000, L501.9520, L100.0100, L506.1000 ####[facility] [address] [place], [address] AST [Catalytic activity/Vol] 19 U/L Normal 15-37 [facility] Comment on above: Performed By: #### L 503.6620, L500.4050, L300.8000, L501.9520, L100.0100, L506.1000 ####[facility] [address] [place], [address] Bilirubin [Mass/Vol] 0.60 mg/dL Normal 0.20-1.00 [facility] Comment on above: Result Comment: For patients on eltrombopag therapy, use of Dimension [place] TBIL is not recommended. Performed By: #### L 503.6620, L500.4050, L300.8000, L501.9520, L100.0100, L506.1000 ####[facility] [address] [place], [address] BUN/CRE 16.4 RATIO Normal 10-20 [facility] Comment on above: Performed By: #### L 503.6620, L500.4050, L300.8000, L501.9520, L100.0100, L506.1000 ####[facility] [address] [place], [address] CA,Total 9.0 mg/dL Normal 8.5-10.1 [facility] Comment on above: Performed By: #### L 503.6620, L500.4050, L300.8000, L501.9520, L100.0100, L506.1000 ####[facility] [address] [place], [address] Chloride [Moles/Vol] 104 mmol/L Normal 98-107 [facility] Comment on above: Performed By: #### L 503.6620, L500.4050, L300.8000, L501.9520, L100.0100, L506.1000 ####[facility] [address] [place], [address] CO2 [Moles/Vol] 29.0 mmol/L Normal 21.0-32.0 [facility] Comment on above: Performed By: #### L 503.6620, L500.4050, L300.8000, L501.9520, L100.0100, L506.1000 ####[facility] [address] [place], [address] Creatinine [Mass/Vol] 1.22 mg/dL Normal 0.70-1.30 [facility] Comment on above: Result Comment: The validity of the calculated GFR GFRAA in patients over 70 years has not been determined. Clinical correlation is essential. Performed By: #### L 503.6620, L500.4050, L300.8000, L501.9520, L100.0100, L506.1000 ####[facility] [address] [place], [address] EST GFR - AA 75 mL/min Normal >60 [facility] Comment on above: Result Comment: Afri can [place] GFR Calc Performed By: #### L 503.6620, L500.4050, L300.8000, L501.9520, L100.0100, L506.1000 ####[facility] [address] [place], [address] GAP 5 Normal 5-15 [facility] Comment on above: Performed By: #### L 503.6620, L500.4050, L300.8000, L501.9520, L100.0100, L506.1000 ####[facility] [address] [place], [address] GFR/1.73 sq M.predicted among non-blacks MDRD (S/P/Bld) [Vol rate/Area] 62 mL/min/{1.73_m2} Normal >60 [facility] Comment on above: Result Comment: Non- GFR Calc Performed By: #### L 503.6620, L500.4050, L300.8000, L501.9520, L100.0100, L506.1000 ####[facility] [address] [place], [address] Globulin (S) [Mass/Vol] 4.2 g/dL Normal 2.2-4.2 [facility] Comment on above: Performed By: #### L 503.6620, L500.4050, L300.8000, L501.9520, L100.0100, L506.1000 ####[facility] [address] [place], [address] Glucose [Mass/Vol] 99 mg/dL Normal 74-106 [facility] Comment on above: Performed By: #### L 503.6620, L500.4050, L300.8000, L501.9520, L100.0100, L506.1000 ####[facility] [address] [place], [address] Potassium [Moles/Vol] 4.8 mmol/L Normal 3.5-5.1 [facility] Comment on above: Performed By: #### L 503.6620, L500.4050, L300.8000, L501.9520, L100.0100, L506.1000 ####[facility] [address] [place], [address] Sodium [Moles/Vol] 139 mmol/L Normal 136-145 [facility] Comment on above: Performed By: #### L 503.6620, L500.4050, L300.8000, L501.9520, L100.0100, L506.1000 ####[facility] [address] [place], [address] T PROT 7.8 g/dL Normal 6.4-8.2 [facility] Comment on above: Performed By: #### L 503.6620, L500.4050, L300.8000, L501.9520, L100.0100, L506.1000 ####[facility] [address] [place], [address] Urea nitrogen [Mass/Vol] 20 mg/dL High 7-18 [facility] Comment on above: Performed By: #### L 503.6620, L500.4050, L300.8000, L501.9520, L100.0100, L506.1000 ####[facility] [address] [place], [address] D-Dimer Quantitative (DVT/PE )on 09-09-2024 D-DIMER QUANT 0.86 FEU/ug/m Invalid Interpretation Code 0.27-0.49 [facility] Comment on above: Result Comment: D-Di bernie ELEVATED (>0.49): Additional studies and clinical assessments are indicated to conclude diagnosis of: Deep Vein Thrombosis (DVT) or Pulmonary Embolism (PE) Performed By: #### L 503.6620, L500.4050, L300.8000, L501.9520, L100.0100, L506.1000 ####[facility] [address] [place], [address] Thyroid Stim Hormone (TSH)on 02-05-2025 TSH 1.200 uIU/mL Normal 0.358-3.740 [facility] Comment on above: Performed By: #### L 503.6620, L500.4050, L300.8000, L501.9520, L100.0100, L506.1000 ####[facility] [address] [place], [address] Vitamin D,25 Hydroxyon 09-09 Vitamin D 25-OH 18.8 ng/mL Normal [facility] Comment on above: Result Comment: Pooja min D 25(OH) Status Range Deficiency <20 ng/mL (50nmol/L) Insufficiency 20 - 30 ng/mL (50 - 75 nmol/L) Sufficiency 30 - 100 ng/mL (75 - 250 nmol/L) Toxicity >100 ng/mL (>250 nmol/L) Performed By: #### L 503.6620, L500.4050, L300.8000, L501.9520, L100.0100, L506.1000 ####[facility] [address] [place], [address] 12 Lead EKGon 08-06-2024 12 Lead EKG [facility] Cardiovascular Services [address] [place] [address] 12 Lead EKG 08/06/24 0738 MR#: [id number] Acct: [id number] Name: LAYNE VASQUEZ Rep #: [id number] : 1950 74 From: Chris De La Cruz MD Attending Dr: Dr. Richard Howard MD Status: REG CLI Ordering Dr: Richard Howard MD Date: 08/06/24 Location: [facility] Sex: M AA Admitted: Test Reason : CHEST PAIN Blood Pressure : */* mmHG Vent. Rate : 51 BPM Atrial Rate : 51 BPM P-R Int : 158 ms QRS Dur : 88 ms QT Int : 416 ms P-R-T Axes : 29 78 67 degrees QTcB Int : 383 ms Sinus bradycardia with Premature atrial complexes Otherwise normal ECG Confirmed by DOROTHY BARRIOS, CHRIS ([id number]), video editor LASHAE SINGLETON ([id number]) on 08/06/2024 9:11:39 AM Referred By: Richard Howard Confirmed By: CHRIS DE LA CRUZ MD 08/06/24 0911 Date Chris De La Cruz MD CC: Dr. Richard Howard MD Signed Normal [facility] Echo Completeon 08-06-2024 Echo Complete [facility] Services [address] [place] [address] Echo Complete 08/06/24 0851 MR#: [id number] Acct: [id number] Name: LAYNE VASQUEZ Rep #: [id number] : 1950 74 From: Chris De La Cruz MD Attending Dr: Dr. Richard Howard MD Status: REG CLI Ordering Dr: Richard Howard MD Date: 08/06/24 Location: [facility] Sex: M AA Admitted: Reason For Study: CHEST PAIN Procedure This was a 2D Doppler, Color Flow transthoracic echocardiogram. Exam performed in department. Left Ventricle Normal LV size. Left ventricular systolic function is normal. The left ventricular ejection fraction is 60 %. No regional wall motion abnormalities noted. Right Ventricle Normal RV size. Normal systolic function. Atria Normal left atrium. Normal right atrium. Mitral Valve Normal mitral valve. Trivial eccentric mitral valve insufficiency. Tricuspid Valve Normal tricuspid valve. Mild (1+) tricuspid valve insufficiency. Pulmonary artery systolic pressure is 35 mmHg. Aortic Valve Trisinus/trileaflet aortic valve. Pulmonic Valve Normal pulmonic valve. Great Vessels Normal aortic root. The pulmonary artery is normal size. Inferior vena cava collapse with respiration. Pericardium/Pleural No pericardial effusion. MMode/2D Measurements Calculations LVIDd: 4.9 cm IVSd: 1.0 cm LVOT diam: 2.0 cm LVIDs: 3.0 cm LVPWd: 1.0 cm LVOT area: 3.1 cm2 RVDd: 3.5 cm FS: 38.8 % asc Aorta Diam: 3.6 cm LAV(MOD-bp): 34.9 ml LVAd ap4: 24.0 cm2 LAV(MOD-bp) Indexed: 19.7 ml/m2 LVLd ap4: 7.0 cm LAV(MOD-sp2): 38.0 ml EDV(MOD-sp4): 68.5 ml LAV(MOD-sp4): 29.7 ml EDV(sp4-el): 69.8 ml LVAs ap4: 12.6 cm2 LVLs ap4: 5.7 cm ESV(MOD-sp4): 23.6 ml ESV(sp4-el): 23.4 ml EF(MOD-sp4): 65.5 % EF(sp4-el): 66.5 % LVAd ap2: 21.7 cm2 SV(MOD-sp4): 44.9 ml SV(MOD-sp2): 37.1 ml LVLd ap2: 7.5 cm SI(MOD-sp4): 25.4 ml/m2 SI(MOD-sp2): 21.0 ml/m2 EDV(MOD-sp2): 54.6 ml EDV(sp2-el): 53.7 ml LVAs ap2: 10.8 cm2 LVLs ap2: 6.2 cm ESV(MOD-sp2): 17.5 ml ESV(sp2-el): 16.0 ml EF(MOD-sp2): 68.0 % SV(sp4-el): 46.4 ml Ao sinus diam: 3.[address] Junction: 2.7 cm LA dimension(2D): 3.0 cm LA A4 area: 13.4 cm2 RA A4 area: 11.1 cm2 TAPSE: 1.9 cm Time Measurements MV dec time: 0.16 sec Doppler Measurements Calculations MV E max raimundo: 71.4 cm/sec Lat Peak E' Raimundo: 12.7 cm/sec Med Peak E' Raimundo: 8.2 cm/sec MV A max raimundo: 98.1 cm/sec E/E' lat: 5.6 E/E' med: 8.7 MV E/A: 0.73 MV dec slope: 440.1 cm/sec2 Ao V2 max: 119.7 cm/sec LV V1 max: 96.9 cm/sec Ao max P.7 mmHg LV V1 max P.8 mmHg Ao V2 mean: 86.5 cm/sec LV V1 mean P.2 mmHg Ao mean P.3 mmHg LV V1 mean: 71.3 cm/sec Ao V2 VTI: 27.0 cm LV V1 VTI: 21.7 cm AV (velocity ratio): 0.81 ROBERT(I,D): 2.5 cm2 ROBERT(V,D): 2.5 cm2 SV(LVOT): 67.1 ml PA V2 max: 90.2 cm/sec TR max raimundo: 281.3 cm/sec TR max P.6 mmHg ECHO/Echo Complete Interpretation Summary Normal LV size. Left ventricular systolic function is normal. The left ventricular ejection fraction is 60 %. Pulmonary artery systolic pressure is 35 mmHg. Ordering Physician: Richard Howard Chi Referring Physician: Richard Howard Chi Performed By: Vinita Hardy RD 08/06/2442 Date Chris De La Cruz MD CC: Dr. Richard Howard MD Date Dictated: 08/06/24 0851 Date Transcribed: 08/06/24941 Table Cut Off Saw Operator: Signed Normal [facility] Stress Reporton 08-06-2024 Stress Report [facility] [place] [address] MR#: [id number] Acct: [id number] Name: LAYNE VASQUEZ Rep #: [id number] : 1950 74 From: Chris De La Cruz MD Primary Care: Dr. Richard Howard MD Status: REG CLI Referring Dr: Richard Howard MD Sex: M AA Stress Test Report Pharmacologic myocardial perfusion stress test. 74-year-old with a history of chest pain Resting EKG demonstrates sinus bradycardia with a rate of 51 bpm. Resting blood pressure is 142/78 mmHg. 0.4 mg of regadenoson was infused per usual protocol followed by rapid intravenous saline flush injection. Continuous EKG monitoring was performed. The maximum heart rate was 81 bpm which was 55% of max impacted heart rate the maximum workload was 1 metabolic equivalent. At rest there were no ST or T wave changes noted to suggest ischemia and at peak infusion nonspecific ST changes were noted which did not meet the criteria for ischemia. No clinical angina is noted. The final blood pressure was 138/72 mmHg. Myocardial perfusion protocol. 11 point mCi of technetium 99m sestamibi was injected at rest. 0.4 mg of regadenoson was infused per usual protocol. At peak infusion 33.6 mCi of technetium 99m sestamibi was injected stress i mages were obtained stress and rest images were reconstructed and compared in the short axis vertical long and horizontal long axis. Gated images were also obtained. Perfusion SPECT analysis: Review of the stress images demonstrate normal uptake of tracer noted in all areas of the myocardium except for the inferior wall with reduced perfusion. The resting images similar demonstrated normal uptake of tracer noted in all areas of the myocardium except for the inferior wall with reduced perfusion. The above is suggestive of a previous inferior infarct. GI attenuation artifact cannot be excluded. Gated SPECT analysis: The gated ejection fraction is 70%. Conclusion: Normal pharmacologic myocardial perfusion stress test. Preserved ejection fraction. Previous inferior infarct is noted and cannot be completely excluded 08/06/24 1001 Date Chris De La Cruz MD CC: Dr. Richard Howard MD Date Dictated: 08/06/24958 Date Transcribed: 08/06/24958 Table Cut Off Saw Operator: [place] Signed Normal [facility] Myoglobin, Serumon 4 Myoglobin, Ser 29 ng/mL Normal 28-72 [facility] Comment on above: Result Comment: Perf ormed at: CB - [facility] [address] [id number] Child Care Director: Pavan Zhu PhD, Phone: [phone] Performed By: #### L 3600.5100, L501.4020, L100.0100, L501.5200, L500.2500, L501.3620, L501.2300 ####[facility] [address] [place], [address] Basic Metabolic Profile (BMP )on 07-17-2024 BUN/CRE 12.6 RATIO Normal 10-20 [facility] Comment on above: Order Comment: 1 Performed By: #### L 3600.5100, L501.4020, L100.0100, L501.5200, L500.2500, L501.3620, L501.2300 ####[facility] [address] [place], [place], [address]) CA,Total 9.7 mg/dL Normal 8.5-10.1 [facility] Comment on above: Order Comment: 1 Performed By: #### L 3600.5100, L501.4020, L100.0100, L501.5200, L500.2500, L501.3620, L501.2300 ####[facility] [address] [place], [address] Chloride [Moles/Vol] 105 mmol/L Normal 98-107 [facility] Comment on above: Order Comment: 1 Performed By: #### L 3600.5100, L501.4020, L100.0100, L501.5200, L500.2500, L501.3620, L501.2300 ####[facility] [address] [place], [address] CO2 [Moles/Vol] 31.0 mmol/L Normal 21.0-32.0 [facility] Comment on above: Order Comment: 1 Performed By: #### L 3600.5100, L501.4020, L100.0100, L501.5200, L500.2500, L501.3620, L501.2300 ####[facility] [address] [place], [address] Creatinine [Mass/Vol] 1.27 mg/dL Normal 0.70-1.30 [facility] Comment on above: Order Comment: 1 Result Comment: The validity of the calculated GFR GFRAA in patients over 70 years has not been determined. Clinical correlation is essential. Performed By: #### L 3600.5100, L501.4020, L100.0100, L501.5200, L500.2500, L501.3620, L501.2300 ####[facility] [address] [place], [address] EST GFR - AA 72 mL/min Normal >60 [facility] Comment on above: Order Comment: 1 Result Comment: Afri can [place] GFR Calc Performed By: #### L 3600.5100, L501.4020, L100.0100, L501.5200, L500.2500, L501.3620, L501.2300 ####[facility] [address] [place], [address] GAP 3 Low 5-15 [facility] Comment on above: Order Comment: 1 Performed By: #### L 3600.5100, L501.4020, L100.0100, L501.5200, L500.2500, L501.3620, L501.2300 ####[facility] [address] [place], [address] GFR/1.73 sq M.predicted among non-blacks MDRD (S/P/Bld) [Vol rate/Area] 59 mL/min/{1.73_m2} Low >60 [facility] Comment on above: Order Comment: 1 Result Comment: Non- GFR Calc Performed By: #### L 3600.5100, L501.4020, L100.0100, L501.5200, L500.2500, L501.3620, L501.2300 ####[facility] [address] [place], [address] Glucose [Mass/Vol] 101 mg/dL Normal 74-106 [facility] Comment on above: Order Comment: 1 Result Comment: Fast ing Glucose result from 100 to 125 mg/dL suggests IMPAIRED HOMEOSTASIS per A.D.A. criteria. Performed By: #### L 3600.5100, L501.4020, L100.0100, L501.5200, L500.2500, L501.3620, L501.2300 ####[facility] [address] [place], [address] Potassium [Moles/Vol] 4.3 mmol/L Normal 3.5-5.1 [facility] Comment on above: Order Comment: 1 Performed By: #### L 3600.5100, L501.4020, L100.0100, L501.5200, L500.2500, L501.3620, L501.2300 ####[facility] [address] [place], [address] Sodium [Moles/Vol] 139 mmol/L Normal 136-145 [facility] Comment on above: Order Comment: 1 Performed By: #### L 3600.5100, L501.4020, L100.0100, L501.5200, L500.2500, L501.3620, L501.2300 ####[facility] [address] [place], [address] Urea nitrogen [Mass/Vol] 16 mg/dL Normal 7-18 [facility] Comment on above: Order Comment: 1 Performed By: #### L 3600.5100, L501.4020, L100.0100, L501.5200, L500.2500, L501.3620, L501.2300 ####[facility] [address] [place], [address] CBC W/Diff, Automatedon 12-2023 Absolute Lymph 1.76 X10 3/uL Normal 0.83-4.51 [facility] Comment on above: Performed By: #### L 3600.5100, L501.4020, L100.0100, L501.5200, L500.2500, L501.3620, L501.2300 ####[facility] [address] [place], [address] Absolute Neut 4.8 X10 3/uL Normal 2.0-7.7 [facility] Comment on above: Performed By: #### L 3600.5100, L501.4020, L100.0100, L501.5200, L500.2500, L501.3620, L501.2300 ####[facility] [address] [place], [address] Basophils/100 WBC (Bld) 1.0 % Normal 0-1 [facility] Comment on above: Performed By: #### L 3600.5100, L501.4020, L100.0100, L501.5200, L500.2500, L501.3620, L501.2300 ####[facility] [address] [place], [address] Eosinophils/100 WBC (Bld) 2.8 % Normal 0-5 [facility] Comment on above: Performed By: #### L 3600.5100, L501.4020, L100.0100, L501.5200, L500.2500, L501.3620, L501.2300 ####[facility] [address] [place], [address] Erythrocyte distribution width (RBC) [Ratio] 13.2 % Normal 11.6-14.6 [facility] Comment on above: Performed By: #### L 3600.5100, L501.4020, L100.0100, L501.5200, L500.2500, L501.3620, L501.2300 ####[facility] [address] [place], [address] Hematocrit (Bld) [Volume fraction] 44.1 % Normal 40-54 [facility] Comment on above: Performed By: #### L 3600.5100, L501.4020, L100.0100, L501.5200, L500.2500, L501.3620, L501.2300 ####[facility] [address] [place], [address] Hemoglobin (Bld) [Mass/Vol] 14.4 g/dL Normal 13.0-16.5 [facility] Comment on above: Performed By: #### L 3600.5100, L501.4020, L100.0100, L501.5200, L500.2500, L501.3620, L501.2300 ####[facility] [address] [place], [address] IG% 0.400 Normal 0.0-0.9 [facility] Comment on above: Result Comment: IG% - Immature Granulocytes (promyelocytes, myelocytes and metamyelocytes) > 1% indicates that a LEFT SHIFT is Present. Performed By: #### L 3600.5100, L501.4020, L100.0100, L501.5200, L500.2500, L501.3620, L501.2300 ####[facility] [address] [place], [address] Lymphocytes/100 WBC (Bld) 22.8 % Normal 19-41 [facility] Comment on above: Performed By: #### L 3600.5100, L501.4020, L100.0100, L501.5200, L500.2500, L501.3620, L501.2300 ####[facility] [address] [place], [address] MCH (RBC) [Entitic mass] 31.3 pg Normal 27.0-32.0 [facility] Comment on above: Performed By: #### L 3600.5100, L501.4020, L100.0100, L501.5200, L500.2500, L501.3620, L501.2300 ####[facility] [address] [place], [address] MCHC (RBC) [Mass/Vol] 32.7 g/dL Normal 32-36 [facility] Comment on above: Performed By: #### L 3600.5100, L501.4020, L100.0100, L501.5200, L500.2500, L501.3620, L501.2300 ####[facility] [address] [place], [address] MCV (RBC) [Entitic vol] 95.9 fL High 80-94 [facility] Comment on above: Performed By: #### L 3600.5100, L501.4020, L100.0100, L501.5200, L500.2500, L501.3620, L501.2300 ####[facility] [address] [place], [address] Monocytes/100 WBC (Bld) 10.8 % High 0-10 [facility] Comment on above: Performed By: #### L 3600.5100, L501.4020, L100.0100, L501.5200, L500.2500, L501.3620, L501.2300 ####[facility] [address] [place], [address] Neutrophils/100 WBC (Bld) 62.2 % Normal 47-70 [facility] Comment on above: Performed By: #### L 3600.5100, L501.4020, L100.0100, L501.5200, L500.2500, L501.3620, L501.2300 ####[facility] [address] [place], [address] Nucleated RBC (Bld) [#/Vol] 0 10*3/uL Normal 0-5 [facility] Comment on above: Performed By: #### L 3600.5100, L501.4020, L100.0100, L501.5200, L500.2500, L501.3620, L501.2300 ####[facility] [address] [place], [address] Platelet mean volume (Bld) [Entitic vol] 9.9 fL Normal 6.2-12.0 [facility] Comment on above: Performed By: #### L 3600.5100, L501.4020, L100.0100, L501.5200, L500.2500, L501.3620, L501.2300 ####[facility] [address] [place], [address] Platelets (Bld) [#/Vol] 329 10*3/uL Normal 150-450 [facility] Comment on above: Performed By: #### L 3600.5100, L501.4020, L100.0100, L501.5200, L500.2500, L501.3620, L501.2300 ####[facility] [address] [place], [address] RBC (Bld) [#/Vol] 4.60 10*6/uL Normal 4.6-6.2 [facility] Comment on above: Performed By: #### L 3600.5100, L501.4020, L100.0100, L501.5200, L500.2500, L501.3620, L501.2300 ####[facility] [address] [place], [address] RDW SD 46.5 fl High 35.1-43.9 [facility] Comment on above: Performed By: #### L 3600.5100, L501.4020, L100.0100, L501.5200, L500.2500, L501.3620, L501.2300 ####[facility] [address] [place], [address] WBC (Bld) [#/Vol] 7.7 10*3/uL Normal 4.4-11.0 [facility] Comment on above: Performed By: #### L 3600.5100, L501.4020, L100.0100, L501.5200, L500.2500, L501.3620, L501.2300 ####[facility] [address] [place], [address] CPK Total, Creatine Kinaseon 07-17-2024 CPK TOTAL 48 U/L Normal 39-308 [facility] Comment on above: Order Comment: 1 Performed By: #### L 3600.5100, L501.4020, L100.0100, L501.5200, L500.2500, L501.3620, L501.2300 ####[facility] [address] [place], [address] L501.4020on 07-17-2024 TROPONIN-I HS 11 pg/mL Normal 3.0-78.0 [facility] Comment on above: Order Comment: 1 Result Comment: Pleelnea arellano Note: New Test Units and Gender Specific Reference Ranges. For more information see Policy Stat Procedure [place] High Sensitivity Troponin (TNIH) and attachments. Performed By: #### L 3600.5100, L501.4020, L100.0100, L501.5200, L500.2500, L501.3620, L501.2300 ####[facility] [address] [place], [address] Magnesiumon 07-17-2024 Magnesium [Mass/Vol] 2.7 mg/dL High 1.6-2.6 [facility] Comment on above: Order Comment: 1 Performed By: #### L 3600.5100, L501.4020, L100.0100, L501.5200, L500.2500, L501.3620, L501.2300 ####[facility] [address] [place], [address] Phosphoruson 07-17-2024 Phosphate [Mass/Vol] 3.2 mg/dL Normal 2.5-4.9 [facility] Comment on above: Order Comment: 1 Performed By: #### L 3600.5100, L501.4020, L100.0100, L501.5200, L500.2500, L501.3620, L501.2300 ####[facility] [address] [place], [address] Basic Metabolic Profile (BMP )on 06-15-2024 BUN/CRE 16.4 RATIO Normal 10-20 [facility] Comment on above: Performed By: #### L 500.2500 ####[facility] [address] [place], [address] CA,Total 9.1 mg/dL Normal 8.5-10.1 [facility] Comment on above: Performed By: #### L 500.2500 ####[facility] [address] [place], [address] Chloride [Moles/Vol] 104 mmol/L Normal 98-107 [facility] Comment on above: Performed By: #### L 500.2500 ####[facility] [address] [place], [address] CO2 [Moles/Vol] 32.0 mmol/L Normal 21.0-32.0 [facility] Comment on above: Performed By: #### L 500.2500 ####[facility] [address] [place], [address] Creatinine [Mass/Vol] 1.28 mg/dL Normal 0.70-1.30 [facility] Comment on above: Result Comment: The validity of the calculated GFR GFRAA in patients over 70 years has not been determined. Clinical correlation is essential. Performed By: #### L 500.2500 ####[facility] [address] [place], [address] EST GFR - AA 71 mL/min Normal >60 [facility] Comment on above: Result Comment: Afri can [place] GFR Calc Performed By: #### L 500.2500 ####[facility] [address] [place], [address] GAP 4 Low 5-15 [facility] Comment on above: Performed By: #### L 500.2500 ####[facility] [address] [place], [address] GFR/1.73 sq M.predicted among non-blacks MDRD (S/P/Bld) [Vol rate/Area] 59 mL/min/{1.73_m2} Low >60 [facility] Comment on above: Result Comment: Non- GFR Calc Performed By: #### L 500.2500 ####[facility] [address] [place], [address] Glucose [Mass/Vol] 115 mg/dL High 74-106 [facility] Comment on above: Result Comment: Fast ing Glucose result from 100 to 125 mg/dL suggests IMPAIRED HOMEOSTASIS per A.D.A. criteria. Performed By: #### L 500.2500 ####[facility] [address] [place], [address] Potassium [Moles/Vol] 3.9 mmol/L Normal 3.5-5.1 [facility] Comment on above: Performed By: #### L 500.2500 ####[facility] [address] [place], [address] Sodium [Moles/Vol] 140 mmol/L Normal 136-145 [facility] Comment on above: Performed By: #### L 500.2500 ####[facility] [address] [place], [address] Urea nitrogen [Mass/Vol] 21 mg/dL High 7-18 [facility] Comment on above: Performed By: #### L 500.2500 ####[facility] [address] [place], [address] CBC W/Diff, Automatedon 11-0 5-2023 Absolute Lymph 2.27 X10 3/uL Normal 0.83-4.51 [facility] Comment on above: Performed By: #### L 3890.6300, L100.0100, L500.4100, L501.9520, L506.1000, L500.4050 #### [facility] Laboratory [address] [place], [address] Absolute Neut 4.6 X10 3/uL Normal 2.0-7.7 [facility] Comment on above: Performed By: #### L 3890.6300, L100.0100, L500.4100, L501.9520, L506.1000, L500.4050 #### [facility] Laboratory [address] [place], [address] Basophils/100 WBC (Bld) 1.1 % High 0-1 [facility] Comment on above: Performed By: #### L 3890.6300, L100.0100, L500.4100, L501.9520, L506.1000, L500.4050 #### [facility] Laboratory [address] [place], [address] Eosinophils/100 WBC (Bld) 3.8 % Normal 0-5 [facility] Comment on above: Performed By: #### L 3890.6300, L100.0100, L500.4100, L501.9520, L506.1000, L500.4050 #### [facility] Laboratory [address] [place], [address] Erythrocyte distribution width (RBC) [Ratio] 13.9 % Normal 11.6-14.6 [facility] Comment on above: Performed By: #### L 3890.6300, L100.0100, L500.4100, L501.9520, L506.1000, L500.4050 #### [facility] Laboratory [address] [place], [address] Hematocrit (Bld) [Volume fraction] 43.9 % Normal 40-54 [facility] Comment on above: Performed By: #### L 3890.6300, L100.0100, L500.4100, L501.9520, L506.1000, L500.4050 #### [facility] Laboratory [address] [facility] [place], [address] Hemoglobin (Bld) [Mass/Vol] 14.2 g/dL Normal 13.0-16.5 [facility] Comment on above: Performed By: #### L 3890.6300, L100.0100, L500.4100, L501.9520, L506.1000, L500.4050 #### [facility] [address] [place], [address] IG% 0.200 Normal 0.0-0.9 [facility] Comment on above: Result Comment: IG% - Immature Granulocytes (promyelocytes, myelocytes and metamyelocytes) > 1% indicates that a LEFT SHIFT is Present. Performed By: #### L 3890.6300, L100.0100, L500.4100, L501.9520, L506.1000, L500.4050 #### [facility] Laboratory [address] [place], [address] Lymphocytes/100 WBC (Bld) 27.8 % Normal 19-41 [facility] Comment on above: Performed By: #### L 3890.6300, L100.0100, L500.4100, L501.9520, L506.1000, L500.4050 #### [facility] Laboratory [address] [place], [address] MCH (RBC) [Entitic mass] 30.6 pg Normal 27.0-32.0 [facility] Comment on above: Performed By: #### L 3890.6300, L100.0100, L500.4100, L501.9520, L506.1000, L500.4050 #### [facility] Laboratory [address] [place], [address] MCHC (RBC) [Mass/Vol] 32.3 g/dL Normal 32-36 [facility] Comment on above: Performed By: #### L 3890.6300, L100.0100, L500.4100, L501.9520, L506.1000, L500.4050 #### [facility] Laboratory [address] [place], [address] MCV (RBC) [Entitic vol] 94.6 fL High 80-94 [facility] Comment on above: Performed By: #### L 3890.6300, L100.0100, L500.4100, L501.9520, L506.1000, L500.4050 #### [facility] [address] [place], [address] Monocytes/100 WBC (Bld) 10.3 % High 0-10 [facility] Comment on above: Performed By: #### L 3890.6300, L100.0100, L500.4100, L501.9520, L506.1000, L500.4050 #### [facility] Laboratory [address] [place], [address] Neutrophils/100 WBC (Bld) 56.8 % Normal 47-70 [facility] Comment on above: Performed By: #### L 3890.6300, L100.0100, L500.4100, L501.9520, L506.1000, L500.4050 #### [facility] Laboratory [address] [place], [address] Nucleated RBC (Bld) [#/Vol] 0 10*3/uL Normal 0-5 [facility] Comment on above: Performed By: #### L 3890.6300, L100.0100, L500.4100, L501.9520, L506.1000, L500.4050 #### [facility] Laboratory [address] [place], [address] Platelet mean volume (Bld) [Entitic vol] 9.9 fL Normal 6.2-12.0 [facility] Comment on above: Performed By: #### L 3890.6300, L100.0100, L500.4100, L501.9520, L506.1000, L500.4050 #### [facility] Laboratory [address] [place], [address] Platelets (Bld) [#/Vol] 292 10*3/uL Normal 150-450 [facility] Comment on above: Performed By: #### L 3890.6300, L100.0100, L500.4100, L501.9520, L506.1000, L500.4050 #### [facility] Laboratory [address] [place], [address] RBC (Bld) [#/Vol] 4.64 10*6/uL Normal 4.6-6.2 [facility] Comment on above: Performed By: #### L 3890.6300, L100.0100, L500.4100, L501.9520, L506.1000, L500.4050 #### [facility] Laboratory [address] [place], [address] RDW SD 48.8 fl High 35.1-43.9 [facility] Comment on above: Performed By: #### L 3890.6300, L100.0100, L500.4100, L501.9520, L506.1000, L500.4050 #### [facility] Laboratory [address] [place], [address] WBC (Bld) [#/Vol] 8.2 10*3/uL Normal 4.4-11.0 [facility] Comment on above: Performed By: #### L 3890.6300, L100.0100, L500.4100, L501.9520, L506.1000, L500.4050 #### [facility] Laboratory [address] [place], [address] Comprehensive Metabolic Prof ilon 06-09-2024 Albumin [Mass/Vol] 4.0 g/dL Normal 3.2-5.0 [facility] Comment on above: Performed By: #### L 3890.6300, L100.0100, L500.4100, L501.9520, L506.1000, L500.4050 #### [facility] Laboratory [address] [place], [address] Albumin/Globulin [Mass ratio] 1.1 {ratio} Normal 0.9-2.4 [facility] Comment on above: Performed By: #### L 3890.6300, L100.0100, L500.4100, L501.9520, L506.1000, L500.4050 #### [facility] Laboratory [address] [place], [address] ALK P 55 U/L Normal 45-117 [facility] Comment on above: Performed By: #### L 3890.6300, L100.0100, L500.4100, L501.9520, L506.1000, L500.4050 #### [facility] Laboratory [address] [place], [address] ALT [Catalytic activity/Vol] 18 U/L Normal 16-61 [facility] Comment on above: Performed By: #### L 3890.6300, L100.0100, L500.4100, L501.9520, L506.1000, L500.4050 #### [facility] Laboratory [address] [place], [address] AST [Catalytic activity/Vol] 19 U/L Normal 15-37 [facility] Comment on above: Performed By: #### L 3890.6300, L100.0100, L500.4100, L501.9520, L506.1000, L500.4050 #### [facility] Laboratory [address] [place], [address] Bilirubin [Mass/Vol] 0.60 mg/dL Normal 0.20-1.00 [facility] Comment on above: Result Comment: For patients on eltrombopag therapy, use of Dimension [place] TBIL is not recommended. Performed By: #### L 3890.6300, L100.0100, L500.4100, L501.9520, L506.1000, L500.4050 #### [facility] Laboratory [address] [place], [address] BUN/CRE 17.1 RATIO Normal 10-20 [facility] Comment on above: Performed By: #### L 3890.6300, L100.0100, L500.4100, L501.9520, L506.1000, L500.4050 #### [facility] Laboratory [address] [place], [address] CA,Total 9.2 mg/dL Normal 8.5-10.1 [facility] Comment on above: Performed By: #### L 3890.6300, L100.0100, L500.4100, L501.9520, L506.1000, L500.4050 #### [facility] Laboratory [address] [place], [address] Chloride [Moles/Vol] 102 mmol/L Normal 98-107 [facility] Comment on above: Performed By: #### L 3890.6300, L100.0100, L500.4100, L501.9520, L506.1000, L500.4050 #### [facility] Laboratory [address] [place], [address] CO2 [Moles/Vol] 30.0 mmol/L Normal 21.0-32.0 [facility] Comment on above: Performed By: #### L 3890.6300, L100.0100, L500.4100, L501.9520, L506.1000, L500.4050 #### [facility] Laboratory [address] [place], [address] Creatinine [Mass/Vol] 1.29 mg/dL Normal 0.70-1.30 [facility] Comment on above: Result Comment: The validity of the calculated GFR GFRAA in patients over 70 years has not been determined. Clinical correlation is essential. Performed By: #### L 3890.6300, L100.0100, L500.4100, L501.9520, L506.1000, L500.4050 #### [facility] Laboratory [address] [place], [address] EST GFR - AA 70 mL/min Normal >60 [facility] Comment on above: Result Comment: Afri can [place] GFR Calc Performed By: #### L 3890.6300, L100.0100, L500.4100, L501.9520, L506.1000, L500.4050 #### [facility] Laboratory [address] [place], [address] GAP 4 Low 5-15 [facility] Comment on above: Performed By: #### L 3890.6300, L100.0100, L500.4100, L501.9520, L506.1000, L500.4050 #### [facility] Laboratory [address] [place], [address] GFR/1.73 sq M.predicted among non-blacks MDRD (S/P/Bld) [Vol rate/Area] 58 mL/min/{1.73_m2} Low >60 [facility] Comment on above: Result Comment: Non- GFR Calc Performed By: #### L 3890.6300, L100.0100, L500.4100, L501.9520, L506.1000, L500.4050 #### [facility] Laboratory [address] [place], [address] Globulin (S) [Mass/Vol] 3.7 g/dL Normal 2.2-4.2 [facility] Comment on above: Performed By: #### L 3890.6300, L100.0100, L500.4100, L501.9520, L506.1000, L500.4050 #### [facility] Laboratory [address] [place], [address] Glucose [Mass/Vol] 96 mg/dL Normal 74-106 [facility] Comment on above: Performed By: #### L 3890.6300, L100.0100, L500.4100, L501.9520, L506.1000, L500.4050 #### [facility] Laboratory [address] [place], [address] Potassium [Moles/Vol] 5.2 mmol/L High 3.5-5.1 [facility] Comment on above: Performed By: #### L 3890.6300, L100.0100, L500.4100, L501.9520, L506.1000, L500.4050 #### [facility] Laboratory [address] [place], [address] Sodium [Moles/Vol] 137 mmol/L Normal 136-145 [facility] Comment on above: Performed By: #### L 3890.6300, L100.0100, L500.4100, L501.9520, L506.1000, L500.4050 #### [facility] [address] [place], [address] T PROT 7.7 g/dL Normal 6.4-8.2 [facility] Comment on above: Performed By: #### L 3890.6300, L100.0100, L500.4100, L501.9520, L506.1000, L500.4050 #### [facility] [address] [place], [address] Urea nitrogen [Mass/Vol] 22 mg/dL High 7-18 [facility] Comment on above: Performed By: #### L 3890.6300, L100.0100, L500.4100, L501.9520, L506.1000, L500.4050 #### [facility] [address] [place], [address] Hepatitis C Antibodyon 06-09 Hepatitis C AB Non-Reactive Normal Nonreactive [facility] Comment on above: Result Comment: Non Reactive: < 0.8 Equivocal: >/= 0.8 to < 1.0 Reactive: >/= 1.0 The CDC requires that a reactive/equivocal HCV antibody result be sent out for confirmation. HCV Quant by PCR testing. Performed By: #### L 3890.6300, L100.0100, L500.4100, L501.9520, L506.1000, L500.4050 #### [facility] [address] [place], [address] Lipid Profileon 06-09-2024 Cholesterol [Mass/Vol] 134 mg/dL Normal 200 [facility] Comment on above: Result Comment: <200 mg/dL Desirable 200-240 mg/dL Borderline >240 mg/dL High Risk Performed By: #### L 3890.6300, L100.0100, L500.4100, L501.9520, L506.1000, L500.4050 #### [facility] [address] [place], [address] Cholesterol in HDL [Mass/Vol] 60 mg/dL Normal [facility] Comment on above: Result Comment: The drugs N-Acetylcysteine and Metamizole may falsely depress this assay. Reference Range HDL <40 mg/dL Low HDL Cholesterol HDL >or= 60 mg/dL High HDL Cholesterol Performed By: #### L 3890.6300, L100.0100, L500.4100, L501.9520, L506.1000, L500.4050 #### [facility] [address] [place], [address] Cholesterol in LDL [Mass/Vol] 57 mg/dL Normal 0-130 [facility] Comment on above: Performed By: #### L 3890.6300, L100.0100, L500.4100, L501.9520, L506.1000, L500.4050 #### [facility] [address] [place], [address] Cholesterol in VLDL [Mass/Vol] 17 mg/dL Normal 5-40 [facility] Comment on above: Performed By: #### L 3890.6300, L100.0100, L500.4100, L501.9520, L506.1000, L500.4050 #### [facility] [address] [place], [address] Triglyceride [Mass/Vol] 84 mg/dL Normal W [facility] Comment on above: Result Comment: The drugs N-Acetylcysteine and Metamizole may falsely depress this assay. Serum Triglycerides Reference Interval Normal <150 mg/dL Borderline high 150 - 199 mg/dL High 200 - 499 mg/dL Very High > or = 500 mg/dL Performed By: #### L 3890.6300, L100.0100, L500.4100, L501.9520, L506.1000, L500.4050 #### [facility] [address] [place], [address] Thyroid Stim Hormone (TSH)on 06-09-2024 TSH 2.300 uIU/mL Normal 0.358-3.740 [facility] Comment on above: Performed By: #### L 3890.6300, L100.0100, L500.4100, L501.9520, L506.1000, L500.4050 #### [facility] [address] [place], [address] Vitamin D,25 Hydroxyon 06-09 Vitamin D 25-OH 26.7 ng/mL Normal [facility] Comment on above: Result Comment: Pooja min D 25(OH) Status Range Deficiency <20 ng/mL (50nmol/L) Insufficiency 20 - 30 ng/mL (50 - 75 nmol/L) Sufficiency 30 - 100 ng/mL (75 - 250 nmol/L) Toxicity >100 ng/mL (>250 nmol/L) Performed By: #### L 3890.6300, L100.0100, L500.4100, L501.9520, L506.1000, L500.4050 #### [facility] [address] [place], [place], [address] Pulmonary Visit Reporton Pulmonary Visit Report [facility] [address] [place], [place] [address] OFFICE VISIT Date of Service: 03/09/24 MR#: [id number] Acct: [id number] Name: LAYNE VASQUEZ Rep #: [id number] : 1950 Provider: NAVARRO Cano Age/Sex: 73/M Location: [facility] Status: Signed Assessment and Plan Assessment and Plan (1) Asthma-COPD overlap syndrome: Status: Chronic Comment: FEV1 48% Plan: Stable, he does not appear to be an exacerbation of COPD today. No need for prednisone or antibiotic. Continue current maintenance medication, symptomatically controlled on the triple therapy with the use of Trelegy. No additional testing at this time. Contact the office for any new or worsening symptoms. An acute visit and typically be arranged within 1-2 days. Follow-up in 1 year. (2) Smoking greater than 40 pack years: Status: Chronic Comment: Quit 2021 Plan: Continue to encourage ongoing smoking cessation. The patient remains appropriate for a repeat LDCT due in February 2025. Ordered accordingly. Orders: Orders Low Dose CT Lung Screening 02/02/25 F17.200 - Nicotine dependence, unspecified, uncomplicated, F17.210 - Nicotine dependence, cigarettes, uncomplicated Plan Details Follow Up: 1 Year ([facility]) HPI 6 M FU Chief Complaint: Test results HPI Comments Details: This patient presents to the office today for follow-up of his asthma/COPD overlap syndrome and to discuss test results. He is ambulatory and currently on room air. He has not recently been seen in the ED or urgent care for any respiratory illness. He has not required any antibiotics or prednisone for any breathing problems. He is compliant use of Trelegy 1 puff daily. He does report rinsing his mouth out after each use. He denies any medication side effect such as sore throat or thrush. He has not recently needed to use his albuterol, estimates probably twice per week. He has occasional shortness of breath on exertion. This has not progressed. He denies any cough, sputum production or hemoptysis. He denies any wheezing, chest tightness, chest pain or palpitations. He also denies any fever, chills or body aches. He continues complete smoking cessation. If you recall, he does have a greater than 57-[id number] smoking history quitting completely 3 or 4 years ago. Test results personally to the patient: Low-dose CT lung screening completed on February 22, 2024. No mass. No pleural effusion or thickening. No pneumothorax. Recommend repeating LDCT in 12 months. Intake Vital Signs 08/15/23 06:20 03/09/24 07:56 Height 5 ft 6 in 5 ft 6 in Weight: 154 lb 160 lb BMI 24.8 25.8 BP 158/93 H 154/89 H Blood Pressure Location Rt brachial Lt brachial Position Sitting Sitting Respiration 18 18 Pulse 68 53 L Pulse Source Monitor Monitor Temp 96.0 F L 97.5 F L Temperature Source Temporal Artery Temporal Artery Pulse Oximetry (%) 97 96 Oxygen Delivery Method room air room air Intake Visit Reasons: 6 M FU Care Attendant Required: No Accompanied by: Self Is patient in pain?: No Allergies No Known Allergies Allergy (Verified 03/09/24 10:41) Medications ???Medication ???Instructions ???Recorded ???Confirmed ???Type diltiazem HCl 180 mg capsule,24 180 mg PO QHS 09/25/19 03/09/24 History hr,extended release hydrochlorothiazide 25 mg tablet 25 mg PO DAILY 09/25/19 03/09/24 History lisinopril 10 mg tablet 10 mg PO QHS 09/25/19 03/09/24 History albuterol sulfate 90 mcg/actuation 2 puff inhalation Q6H PRN 04/13/20 03/09/24 Rx aerosol inhaler shortness of breath or wheezing #18 grams hydroxyzine pamoate 25 mg capsule 25 mg PO BID anxiety #14 caps 09/24/22 03/09/24 Rx fluticasone fur. 100 mcg-umeclid 1 inh inhalation DAILY #3 ea 10/25/23 03/09/24 Rx 62.5 mcg-vilant 25 mcg inhalat.powder (Trelegy Ellipta) rosuvastatin 10 mg tablet mg PO 03/09/24 03/09/24 History Have you fallen in the past year?: No PFSH Medical History (Reviewed 03/09/24 @ 10:52 by Jeanine Cano DYE AND CHEMICAL COORDINATOR, DYE AND CHEMICAL COORDINATOR-C) COPD (chronic obstructive pulmonary disease) Current smoker Hypertension Surgical History (Reviewed 03/09/24 @ 10:52 by Jeanine Cano DYE AND CHEMICAL COORDINATOR, DYE AND CHEMICAL COORDINATOR-C) History of eye surgery Family History (Reviewed 03/09/24 @ 10:52 by Jeanine Cano DYE AND CHEMICAL COORDINATOR, DYE AND CHEMICAL COORDINATOR-C) Mother Hypertension Heart disease Social History Smoking Status: Former smoker Tobacco: How many years used: 50 Electronic Cigarette Use: not used second hand exposure: No quit status: considering quitting Review of Systems Resp Respiratory: Yes as per HPI Exam Const Constitutional: Positive conversant, cooperative, in no acute respiratory distress, healthy appearing, well developed, well nourished and poor (more content not included)... Normal [facility] Absolute lymphocyte countOrd ered By: Jayla Nunez on 06-09-2023 Lymphocytes Auto (Unsp spec) [#/Vol] 2.26 10*3/uL 0.83-4.51 [facility] Basophil percentageOrdered B y: Jayla Nunez on 06-09-2023 Basophil percentage 0-5 SEEN /hpf 0-5 [facility] Basophils/100 WBC (Bld) 1.0 % 0-1 [facility] Bilirubin [Mass/Vol] 0.40 mg/dL 0.20-1.00 [facility] Comment on above: For patients on eltr ombopag therapy, use of Dimension [place] TBIL is not recommended. Chloride [Moles/Vol] 104 mmol/L 98-107 [facility] Eosinophils/100 WBC (Bld) 1.3 % 0-5 [facility] Glucose [Mass/Vol] 95 mg/dL 74-106 [facility] Neutrophils (Bld) [#/Vol] 4.6 10*3/uL 2.0-7.7 [facility] Neutrophils/100 WBC (Bld) 59.3 % 47-70 [facility] Potassium [Moles/Vol] 4.3 mmol/L 3.5-5.1 [facility] Comment on above: Slight Hemolysis, Re sult may be falsely increased. Protein [Mass/Vol] 7.0 g/dL 6.4-8.2 [facility] Sodium [Moles/Vol] 140 mmol/L 136-145 [facility] WBC (Bld) [#/Vol] 7.8 10*3/uL 4.4-11.0 [facility] Bilirubin Test strip Ql (U)O rdered By: Jayla Nunez on 06-09-2023 Bilirubin Ql (U) Negative Negative [facility] Blood erythrocytes count (nu mber/volume)Ordered By: Jayla Nunez on 06-09-2023 RBC (Bld) [#/Vol] 4.68 10*6/uL 4.6-6.2 [facility] Blood hemoglobin measurement (mass/volume)Ordered By: Jayla Nunez on 06-09-2023 Hemoglobin (Bld) [Mass/Vol] 14.4 g/dL 13.0-16.5 [facility] Blood lymphocytes/100 leukoc ytesOrdered By: Jayla Nunez on 06-09-2023 Lymphocytes/100 WBC (Bld) 29.1 % 19-41 [facility] Blood monocytes/100 leukocyt esOrdered By: Jayla Nunez on 06-09-2023 Monocytes/100 WBC (Bld) 9.0 % 0-10 [facility] Blood platelet mean volumeOr dered By: Jayla Nunez on 06-09-2023 Platelet mean volume (Bld) [Entitic vol] 10.1 fL 6.2-12.0 [facility] Determination of erythrocyte mean corpuscular volume (MCV)Ordered By: Jayla Nunez on 06-09-2023 MCV (RBC) [Entitic vol] 94.4 fL 80-94 [facility] Hematocrit Auto (Bld) [Volum e fraction]Ordered By: Jayla Nunez on 06-09-2023 Hematocrit (Bld) [Volume fraction] 44.2 % 40-54 [facility] Ketones Test strip Ql (U)Ord ered By: Jayla Nunez on 06-09-2023 Ketones Ql (U) Negative Negative [facility] - Chemistry and C hemistry - challengeOrdered By: Jayla Nunez on 06-09-2023 ALP [Catalytic activity/Vol] 37 U/L 45-117 [facility] ALT [Catalytic activity/Vol] 11 U/L 16-61 [facility] CO2 [Moles/Vol] 33.0 mmol/L 21.0-32.0 [facility] Globulin (S) [Mass/Vol] 3.4 g/dL 2.2-4.2 [facility] Urea nitrogen/Creatinine [Mass ratio] 14.7 mg/mg 10-20 [facility] - Hematology and Cell countsOrdered By: Jayla Nunez on 06-09-2023 Erythrocyte distribution width (RBC) [Entitic vol] 47.8 fL 35.1-43.9 [facility] Erythrocyte distribution width (RBC) [Ratio] 13.7 % 11.6-14.6 [facility] Immature granulocytes/100 WBC (Bld) 0.300 % 0.0-0.9 [facility] Comment on above: IG% - Immature Granu locytes (promyelocytes, myelocytes and metamyelocytes) > 1% indicates that a LEFT SHIFT is Present. MCH (RBC) [Entitic mass] 30.8 pg 27.0-32.0 [facility] Nucleated RBC/100 WBC (Bld) [Ratio] 0 % 0-5 [facility] Auto ([facility]) [Mass/Vol]Or dered By: Jayla Nunez on 06-09-2023 MCHC (RBC) [Mass/Vol] 32.6 g/dL 32-36 [facility] Mucus LM Ql (Urine sed)Order ed By: Jayla Nunez on 06-09-2023 Mucus Ql (Urine sed) 0 SEEN /hpf [facility] Nitrite Test strip Ql (U)Ord ered By: Jayla Nunez on 06-09-2023 Nitrite Ql (U) Negative Negative [facility] No Panel InformationOrdered By: Jayla Nunez on 06-09-2023 Estimated Creatinine Clearance Calc 44.31 ml/min [facility] Estimated GFR (MDRD) Amer 66 mL/min >60 [facility] Comment on above: GFR Calc Estimated GFR (MDRD) Non-Af Amer 55 mL/min >60 [facility] Comment on above: Non- GFR Calc Platelets bldOrdered By: Lissa Nunez on 06-09-2023 Platelets (Bld) [#/Vol] 282 10*3/uL 150-450 [facility] Protein Test strip Ql (U)Ord ered By: Jayla Nunez on 06-09-2023 Protein Ql (U) 30 mg/dl Negative [facility] Serum or plasma albumin aquiles urement (mass/volume)Ordered By: Jayla Nunez on 06-09-2023 Albumin [Mass/Vol] 3.6 g/dL 3.2-5.0 [facility] Serum or plasma albumin/glob ulin mass ratioOrdered By: Jayla Nunez on 06-09-2023 Albumin/Globulin [Mass ratio] 1.1 {ratio} 0.9-2.4 [facility] Serum or plasma calcium aquiles urement (mass/volume)Ordered By: Jayla Nunez on 06-09-2023 Calcium [Mass/Vol] 8.6 mg/dL 8.5-10.1 [facility] Serum or plasma creatinine m easurement (mass/volume)Ordered By: Jayla Nunez on 06-09-2023 Creatinine [Mass/Vol] 1.36 mg/dL 0.70-1.30 [facility] Comment on above: The validity of the calculated GFR & GFRAA in patients over 70 years has not been determined. Clinical correlation is essential. Serum or plasma urea nitroge n measurement (mass/volume)Ordered By: Jayla Nunez on 06-09-2023 Urea nitrogen [Mass/Vol] 20 mg/dL 7-18 [facility] Squamous epithelial cells de tection in urine sediment by light microscopyOrdered By: Jayla Nunez on 06-09-2023 Epithelial cells.squamous LM Ql (Urine sed) 0-5 SEEN /hpf 0-5 [facility] Thin prep Papanicolaou smear with manual screeningOrdered By: Jayla Nunez on 06-09-2023 Thin prep Papanicolaou smear with manual screening 14 U/L 15-37 [facility] Comment on above: Slight Hemolysis, Re sult may be falsely increased. Thin prep Papanicolaou smear with manual screening 3 5-15 [facility] Urine blood detectionOrdered By: Jayla Nunez on 06-09-2023 RBC Ql (U) 10 /ul Negative [facility] RBC Ql (U) 0-5 SEEN /hpf 0-5 [facility] Urine clarityOrdered By: Lissa Nunze on 06-09-2023 Clarity (U) Clear Clear [facility] Urine color determinationOrd ered By: Jayla Nunez on 06-09-2023 Color (U) Yellow Yellow [facility] Urine glucose detectionOrder ed By: Jayla Nunez on 06-09-2023 Glucose Ql (U) Normal mg/dl Normal [facility] Urine leukocyte esterase det ection by dipstickOrdered By: Jayla Nunez on 06-09-2023 Leukocyte esterase Test strip Ql (U) 25 /ul Negative [facility] Urine pHOrdered By: Jayla flowers on 06-09-2023 pH (U) 5.0 [pH] 5.0 - 8.0 [facility] Urine sediment bacteria coun t by microscopy (number/high power field)Ordered By: Jayla Nunez on 06-09-2023 Bacteria LM.HPF (Urine sed) [#/Area] 0 /[HPF] None Seen [facility] Urine specific gravity measu rementOrdered By: Jayla Nunez on 06-09-2023 Specific gravity (U) [Rel density] 1.015 1.002-1.030 [facility] Urobilinogen Auto test strip Ql (U)Ordered By: Jayla Nunez on 06-09-2023 Urobilinogen Ql (U) 1 mg/dl Normal [facility] CNOVon 11-06-2022 CNOV Office Visit (GENSWS ) LAYNE VASQUEZ ([id number]) 1950 M Date Time Provider Department 11/06/22 2:30 PM LASHAE STINSON During your visit today, we recorded the following information about you: Temperature Pulse Blood pressure Weight 98.4 degrees 82/minute 126/80 70.8 kg Height 1.676 m Lashae Stinson PA-C 11/12/2022 9:19 PM Signed FOLLOW UP VISIT - SKIN LESION NAME: Layne Grimes Christina CLINIC NO.: [id number] DATE OF SERVICE: 11/06/2022 : 1950 REFERRING PHYSICIAN: Betty Winslow DO Layne is a patient I am following with Dr. Savage for a subcutaneous lesion on his left flank area. Dr. Savage performed an excision of this lesion in the OR on 10/30/22. Pathology demonstrated: FINAL DIAGNOSIS Soft tissue, left flank, excision: - Lipoma. The patient notes no complaints since the procedure. The patient returns today for wound check. VITALS: Blood pressure 126/80, pulse 82, temperature 36.9 ?C (98.4 ?F), height 167.6 cm (5' 6), weight 70.8 kg (156 lb), SpO2 97 %. On examination, the skin incision is healing well with no signs of infection or inflammation. Assessment IMPRESSION: Status post excision of lipoma left flank, healing nicely PLAN: If the patient notes any problems or signs of wound infections, the patient should contact me immediately. Diagnoses: No diagnosis found. Return to Clinic: The patient is instructed to follow-up with me as needed. GEETHA Mata PA-C 11/06/2022 2:46 PM Signed -Pathology was benign-lipoma -OK to remove steri-strips in 5 days if they have not fallen off by that time -Call if any signs of fluid collection or recurrent lump at site Allergies As of Date: 11/06/2022 (No Known Allergies) Date Reviewed: 11/06/2022 Reviewed by: Ashlee Reyes LPN - Fully Assessed Reason for Visit: Surgical Follow Up [176] Cmt: Soft tissue tumor removal Primary Visit Diagnosis:Aftercare following surgery [Z48.89] Prescriptions as of 11/12/2022 - doxylamine succinate (SLEEP AID ORAL) Take by mouth. - fluticasone/umeclidin/ vilanter (TRELEGY ELLIPTA INHALATION) Inhale as instructed as needed. - hydrOXYzine pamoate (VISTARIL) 25 mg capsule TAKE 2 CAPSULES BY MOUTH EVERY DAY AT BEDTIME - lisinopril (ZESTRIL, PRINIVIL) 10 mg tablet Take 1 tablet by mouth once daily. - hydroCHLOROthiazide (HYDRODIURIL, ESIDRIX) 25 mg tablet Take 25 mg by mouth once daily. 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] 05/02/2018 Corneal transplant failure [T86.8419] 05/02/2018 Anxiety state [F41.1] COPD (chronic obstructive pulmonary disease) (H* Former smoker [Z87.891] Lesion of subcutaneous tissue [L98.9] 10/30/2022 10/30/2022 Other instructions from your clinician: -Pathology was benign-lipoma -OK to remove steri-strips in 5 days if they have not fallen off by that time -Call if any signs of fluid collection or recurrent lump at site Medications Discontinued During This Encounter Prescriptions - erythromycin (ROMYCIN) 5 mg/gram (0.5 %) ophthalmic ointment (Discontinued) No sig reported - latanoprost (XALATAN) 0.005 % ophthalmic solution (Discontinued) No sig reported - prednisoLONE acetate (PRED FORTE, ECONOPRED PLUS) 1 % ophthalmic suspension (Discontinued) No sig reported Encounter Status:Closed by LASHAE STINSON on 11/12/22 [facility] ANES POSTPROC EVALon 023 ANES POSTPROC EVAL HNO ID: [id number] Author: Tomas Browne MD Service: Anesthesiology Author Type: Anesthesiologist Type: Anesthesia Postprocedure Evaluation Filed: 10/30/2022 12:36 PM Note Text: POST ANESTHESIA EVALUATION NOTE : 1950 Procedure Summary Date: 10/30/22 Room / Location: [place] [address] / [place] Anesthesia Start: 1119 Anesthesia Stop: 1200 Procedure: EXCISION SOFT TISSUE TUMOR SUBFASCIAL OF FLANK / > 5CM (Left: Flank) Diagnosis: Lesion of subcutaneous tissue (Lesion of subcutaneous tissue [L98.9]) Surgeons: Tyrese Savage MD Responsible Provider: Tomas Browne MD Anesthesia Type: MAC ASA Status: 3 Anesthesia Type: MAC Last Vitals Vitals Value Taken Time BP 146/64 10/30/22 1231 Temp 36 10/30/22 1235 Pulse 57 10/30/22 1234 Resp 32 10/30/22 1234 SpO2 98 % 10/30/22 1234 Vitals shown include unvalidated device data. Post Anesthesia Patient Status Patient Evaluation: PACU. PACU/ICU Patient Condition: stable. Anticipated Disposition: phase 2 then home. Neurological Status: aware and responsive. Pulmonary Status: breathing comfortably on room air Airway Control: returned to baseline unsupported. Cardiovascular Status: stable. Pain Management: clinically adequate - multimodal analgesia pain management approach Postoperative Hydration: acceptable. Intraoperative Events: no significant anesthesia events Recommendation: continue current plan of care. Anesthesia Observations No Documentation SIGNATURE: Tomas Browne MD PATIENT NAME: Layne Vasquez DATE: October 30, 2022 TIME: 12:35 PM CSN: [id number] [facility] ANES PRE-OPon 10-30-2022 ANES PRE-OP HNO ID: [id number] Author: Tomas Browne MD Service: Anesthesiology Author Type: Anesthesiologist Type: Anesthesia Preprocedure Evaluation Filed: 10/30/2022 11:04 AM Note Text: ANESTHESIOLOGY DAY OF SURGERY NOTE : 1950 Procedure Information Date/Time: 10/30/22 1130 Procedures: EXCISION SOFT TISSUE TUMOR SUBFASCIAL OF FLANK / > 5CM (Flank) - Anticipated Surgical Procedure/ CPT Code: Mass - Back and Flank - Subfascial >5cm - 48421 EXCISION SOFT TISSUE TUMOR SUBFASCIAL OF BACK = / > 5CM (Back) Location: [place] [facility] / [place] Surgeons: Tyrese Savage MD Estimated body mass index is 25.18 kg/m? as calculated from the following: Height as of this encounter: 167.6 cm (5' 6). Weight as of this encounter: 70.8 kg (156 lb). Most recent hematocrit and potassium results: No results found for this basename: HCT,HEMATOCRIT,K,POTAS SIUM Relevant Problems CARDIO (+) Hypertension PULMONARY (+) COPD (chronic obstructive pulmonary disease) (HCC) I - PHYSICAL EVALUATION AIRWAY Patient intubated: No. Tracheostomy tube not present Mallampati: II. TM distance: >3 FB. Neck ROM: full ROM without neurological symptoms. Mouth opening: adequate. DENTAL Dental findings: poor dentition. Additional exam findings: yes. CARDIOVASCULAR Rhythm: regular PULMONARY Breath sounds clear to auscultation. II - ANESTHESIA PLAN ASA Score: 3 Anesthetic Plan: MAC Beta Jaylene Monitoring Plan Post Procedure Analgesic Plan Informed Consent Anesthetic risks, benefits, alternatives, personnel and consent discussed: yes. Patient / Responsible [employer] agrees to proceed: yes Patient / Surrogate agrees to blood products: blood products not planned Vitals Value Taken Time BP 145/68 10/30/22 1033 Pulse Resp 17 10/30/22 1033 Temp 36.1 ?C (97 ?F) 10/30/22 1033 SpO2 98 % 10/30/22 1033 Facility-Administered Medications as of 10/30/2022 Medication Dose Route Frequency - lidocaine (PF) 10 mg/mL (1 %) 1-2 mg injection (XYLOCAINE) 0.1-0.2 mL INTRADERMAL PRN - lactated ringers iv infusion 5-30 mL/hr INTRAVENOUS CONTINUOUS - NaCl 0.9% iv flush bag 20 mL INTRAVENOUS PRN - ceFAZolin iv piggyback 2 g in D5W (iso-osmotic) 100 mL (ANCEF) 2 g INTRAVENOUS Pre-Op Once Outpatient Medications as of 10/30/2022 Medication Sig - hydrOXYzine pamoate (VISTARIL) 25 mg capsule TAKE 2 CAPSULES BY MOUTH EVERY DAY AT BEDTIME - lisinopril (ZESTRIL, PRINIVIL) 10 mg tablet Take 1 tablet by mouth once daily. - hydroCHLOROthiazide (HYDRODIURIL, ESIDRIX) 25 mg tablet Take 25 mg by mouth once daily. - erythromycin (ROMYCIN) 5 mg/gram (0.5 %) ophthalmic ointment Use 1 application in the left eye daily at bedtime. (Patient not taking: No sig reported) - prednisoLONE acetate (PRED FORTE, ECONOPRED PLUS) 1 % ophthalmic suspension Use 1 Drop in the left eye twice daily. (Patient not taking: No sig reported) - latanoprost (XALATAN) 0.005 % ophthalmic solution Use 1 Drop in the left eye daily at bedtime. (Patient not taking: No sig reported) I have interviewed and examined the patient. I have reviewed the medical record and/or the pre-anesthesia evaluation, pertinent labs, and test results. This contains updated information obtained within 48 hours of Surgery/Procedure. SIGNATURE: Tomas Browne MD PATIENT NAME: Layne Vasquez DATE: October 30, 2022 TIME: 11:04 AM CSN: [id number] Normal [facility] HISTORY PHYSICALon HISTORY PHYSICAL HNO ID: [id number] Author: Tyrese Savage MD Service: General Surgery Author Type: Physician Type: HANDP Filed: 10/30/2022 11:06 AM Note Text: HISTORY AND PHYSICAL Layne Vasquez 1950 REFERRING PHYSICIAN: Betty Winslow DO CHIEF COMPLAINT: Consult (Mass above Left hip ) HPI: The patient is a 72 year old male with a complaint of subcutaneous mass on his left flank area. Patient states that is been there for many many years gradually increasing in size to the point now where he is having discomfort when he lays on that side and cannot get good rest at night. He has had no imaging on it before he has had not any trauma to the area.. The patient is being seen by me today at the request of Dr. Betty Winslow DO for my opinion and advice regarding Lesion of subcutaneous tissue (primary encounter diagnosis). 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 amLODIPine-benazepril (LOTREL) 10-20 mg per capsule Take 1 capsule by mouth as needed. erythromycin (ROMYCIN) 5 mg/gram (0.5 %) ophthalmic ointment Use 1 application in the left eye daily at bedtime. (Patient not taking: Reported on 10/08/2022) prednisoLONE acetate (PRED FORTE, ECONOPRED PLUS) 1 % ophthalmic suspension Use 1 Drop in the left eye twice daily. (Patient not taking: Reported on 11/03/2020 ) diltiazem CD (CARDIZEM CD, CARTIA XT) 180 mg 24 hr capsule Take 180 mg by mouth once daily. hydroCHLOROthiazide (HYDRODIURIL, ESIDRIX) 25 mg tablet Take 25 mg by mouth once daily. (Patient not taking: Reported on 10/08/2022) latanoprost (XALATAN) 0.005 % ophthalmic solution Use 1 Drop in the left eye daily at bedtime. (Patient not taking: Reported on 11/03/2020 ) aspirin, enteric coated (ASPIRIN, ENTERIC COATED) 81 mg EC tablet Take 81 mg by mouth once daily. (Patient not taking: Reported on 11/03/2020 ) ibuprofen (MOTRIN) 600 mg tablet Take 1 tablet by mouth as needed. (Patient not taking: Reported on 11/03/2020 ) No current facility-administered medications for this visit. ALLERGIES: Patient has no known allergies. PERSONAL HISTORY: SOCIAL HISTORY Social History Tobacco Use Smoking status: Former Packs/day: 1.00 Years: 50.00 Pack years: 50.00 Types: Cigarettes Quit date: 12/06/2017 Years since quittin.8 Smokeless tobacco: Never Vaping Use Vaping Use: Never used Substance Use Topics Alcohol use: Never Drug use: Never FAMILY HISTORY: FAMILY HISTORY FAMILY HISTORY Problem Relation Age of Onset Hypertension Mother Heart Mother No Known Problems Father No Ocular Disease No Family History Cancer No Family History Cataract No Family History Glaucoma No Family History Detached Retina No Family History Macular Degen No Family History Blindness No Family History Amblyopia No Family History Strabismus No Family History REVIEW OF SYMPTOMS: The review of systems data was entered by the nurse and reviewed by nh Nursing Notes: Ashlee Reyes LPN 10/08/2022 3:03 PM Signed REVIEW OF SYSTEMS: General: The patient denies fatigue, denies weight loss, denies weight gain, denies feeling hot, and denies feelings of cold. Eyes: The patient notes glaucoma, notes eye injury/surgery, wears glasses or contacts. Ear/Nose/Throat: The patient denies allergies, denies hayfever, denies ear infections, and denies bloody noses. Cardiovascular: The patient denies chest pain, denies heart disease, notes high blood pressure,denies cardiac stent, denies prior heart attack, denies irregular heart beat, denies high cholesterol, denies poor circulation, denies heart failure, other cardiac issues, denies claudication, denies cold feet, denies peripheral arterial stent. Respiratory: The patient denies tuberculosis, denies pneumonia, denies frequent cough, denies pulmonary embolism, denies shortness of breath, and denies coughing up blood, note other lung problems COPD. Gastrointestinal: The patient denies difficulty swallowing, denies acid reflux, denies ulcers, denies vomiting, denies jaundice/hepatitis (more content not included)... [facility] OPERATIVE NOon 10-30-2022 OPERATIVE NO HNO ID: [id number] Author: Tyrese Savage MD Service: General Surgery Author Type: Physician Type: Operative Report Filed: 10/30/2022 11:57 AM Note Text: OPERATIVE/PROCEDURE REPORT LOG ID: [id number] SURGERY/PROCEDURE DATE: 10/30/2022 INCISION/PROCEDURE START TIME: 11:33 AM INCISION CLOSE/PROCEDURE END TIME: 11:53 AM SURGEON(S)/PROCEDURALI ST(S) AND CHEMIST FOOD(S): Surgeon(s) and Role: * Tyrese Savage MD - Primary Registered Nurse Personal Property Appraiser: Norma Davis RN SURGERY/PROCEDURE(S): Excision of a 11 cm x 7 cm x 3 cm subcutaneous mass to left flank ANESTHESIA: Monitored Anesthesia Care SURGERY/PROCEDURE DETAILS: Patient was brought into the operating room. Placed in the right lateral decubitus position with the left flank exposed. Under excellent MAC anesthetic this area was sterilely prepped and draped in usual fashion. Local was injected. 9 cm incision was made dissection was carried down with electrocautery. Fatty lesion was removed in its entirety and sent to pathology for permanent sectioning. Electrocautery was used for good pneumostasis. The wound was brought together deep layers of 3-0 Vicryl deep dermals of 3-0 Vicryl then a running 4-0 Monocryl on the skin. Steri-Strips were applied sterile dressings were applied and the patient tolerated the procedure well. Norma Davis RN was my bar assistant. She assisted with retraction, visualization and performed skin closure. No additional surgeons or qualified residents were available. PRE-OP/PRE-PROCEDURE DIAGNOSIS: Lesion of subcutaneous tissue POST-OP/POST-PROCEDURE DIAGNOSIS: Same as Preop ESTIMATED BLOOD LOSS: < 15 mls SPECIMENS: 11 cm x 7 cm x 3 cm subcutaneous lesion in the left flank IMPLANTABLE DEVICES: NONE DRAINS: None COMPLICATIONS: None CLOSURE TECHNIQUE: Primary PARTICIPATION IN SURGERY/PROCEDURE: I/primary surgeon/proceduralist performed the procedure with assistance. SIGNATURE: Tyrese Savage III, MD PATIENT NAME: Layne Vasquez DATE: October 30, 2022 TIME: 11:54 AM [facility] SURGICAL PATHOLOGYon 023 CASE REPORT [facility] Comment on above: Order Comment: Speci men Type: TISSUE SPECIMEN Ordering Facility: [facility] Address: [address] [place], [place] [id number] Result Comment: Surg [facility] Pathology Report Case: [id number] Authorizing Provider: Tyrese Savage MD Collected: 10/30/2022 11:35 AM Ordering Location: [facility] Surgery Received: 10/30/2022 11:56 AM Pathologist: Geraldine Cid MD Specimen: SOFT TISSUE, left flank subcutaneous tissue Performed By: #### S #### [facility] CLIA [id number] [address] [place] [address] [place] CLINICAL HISTORY Normal [facility] Comment on above: Order Comment: Speci men Type: TISSUE SPECIMEN Ordering Facility: [facility] Address: [address] [place] [address] Result Comment: Pre- op diagnosis: Lesion of subcutaneous tissue [L98.9] Performed By: #### S #### [facility] CLIA [id number] [address] [place] [address] OF [facility] FINAL DIAGNOSIS Normal [facility] Comment on above: Order Comment: Speci men Type: TISSUE SPECIMEN Ordering Facility: [facility] Address: [address] [place] [address] Result Comment: Soft tissue, left flank, excision: - Lipoma. Performed By: #### S #### [facility] CLIA [id number] [address] [place] [address] [place] FINAL PERFORMING LAB Normal [facility] Comment on above: Order Comment: Speci men Type: TISSUE SPECIMEN Ordering Facility: [facility] Address: [address] [place] [address] Result Comment: Diag nostic interpretation performed at [facility], [address] [place] [address] CLIA# [id number] Skin Tanner: Raza Jaimes M.D. Performed By: #### S #### [facility] CLIA [id number] [address] [place] [address] [place] GROSS DESCRIPTION A. SOFT TISSUE Normal [facility] Comment on above: Order Comment: Speci men Type: TISSUE SPECIMEN Ordering Facility: [facility] Address: [address] [place] [id number] Result Comment: Rece ived in formalin labeled left flank subcutaneous tissue is an irregularly-shaped piece of perdomo yellow lobulated adipose tissue that measures 8.5 x 6.4 x 3.1 cm. The specimen is serially sectioned perpendicular to the long axis revealing perdomo yellow lobulated and homogenous cut surfaces with no areas of hemorrhage, necrosis, induration, or nodularity. A member services representative section is submitted in formalin in cassette A1. FAMILIA/papito 10/30/2022 Gross examination performed at [facility], [address] [place] [address] CLIA# [id number] Performed By: #### S #### [facility] CLIA [id number] [address] [place] [address] [place] HISTORY PHYSICALon HISTORY PHYSICAL HNO ID: [id number] Author: Lashae Cardoso PA-C Service: ? Author Type: Physician Chiller Technician Type: HANDP Filed: 10/19/2022 11:33 AM Note Text: HISTORY AND PHYSICAL EXAMINATION SERVICE DATE: 10/19/2022 SERVICE TIME: 11:04 AM PRIMARY CARE PHYSICIAN: Betty Winslow DO REASON FOR VISIT: Layne Vasquez is a 72 year old male who is scheduled for Procedure(s) with comments: EXCISION SOFT TISSUE TUMOR SUBFASCIAL OF BACK = / > 5CM (N/A) - Anticipated Surgical Procedure/ CPT Code: Mass - Back and Flank - Subfascial >5cm - 31146 EXCISION SOFT TISSUE TUMOR SUBFASCIAL OF FLANK / > 5CM (N/A) - Anticipated Surgical Procedure/ CPT Code: Mass - Back and Flank - Subfascial >5cm - 15584 at the request of Dr. Tyrese Savage MD for consultation. My final recommendation will be communicated back to the requesting physician by way of shared medical record or letter. Subjective The patient has the following: ACTIVE PROBLEM LIST Traumatic Glaucoma, Left, Indeterminate Stage Hypertension Central Corneal Opacity, Left Eye Corneal Transplant Failure Anxiety State Copd (Chronic Obstructive Pulmonary Disease) (Hcc) Former Smoker COVID-19 Immunization Status COVID-19 VACCINE (Series Information) Completed 09/20/2022 Imm Admin: COVID-19 booster vaccine, age 12+ yr, bivalent (MODERNA) 07/27/2021 Imm Admin: COVID-19 original vaccine, full dose, monovalent (MODERNA) 10/31/2020 Imm Admin: COVID-19 original vaccine, full dose, monovalent (MODERNA) Only the first 3 history entries have been loaded, but more history exists. CHIEF COMPLAINT: mass of left flank HPI: Layne Vasquez is a 72 year old male presenting for pre-anesthesia consultation. Pt has history of subcutaneous mass on his left flank area. Mass has been present for many years. Mass has gradually increased in size. It is now causes discomfort when laying on his side, which causes disturbs his sleep. Above procedure recommended to manage symptoms. Procedure scheduled on 10/30/2022 at [facility]. REVIEW OF SYSTEMS: General: No weight loss, malaise or fevers. Neurological: No history of TIA's, stroke, LOOM CLEANER tumor, impaired sensorium, hemiplegia, paraplegia or quadraplegia. No neurological symptoms or problems. Respiratory: Positive for: COPD (Trelegy inhaler (uses PRN - 1x every 2-3 days), follows with Dr. Newman, OV 08/15/22 (in C/E), noted to be stable with f/u in 6 months) and tobacco use (former smoker). Negative for: current cough, URI < 2 weeks and obstructive sleep apnea. Cardiovascular: Positive for: hypertension Negative for: arrhythmia, atrial fibrillation, DVT/PE, hyperlipidemia, recent HI and murmur/valvular heart disease. GI: No history of GI symptoms or problems. No history of esophageal varices, recent ascites, or ETOH greater than 2 drinks per day. : No history of dysuria, frequency or incontinence, stones or chronic kidney disease. No difficulty urinating, nocturia > 1 time per night or hematuria. Endocrine: No history of diabetes. Has not taken steroids within the past 30 days. No history of endocrinological symptoms or problems. Hematology: No history of bleeding or clotting disorder. Patient is not taking anti-coagulation or platelet medications. No history of hematological symptoms or problems. Oncology: No history of CA metastasis, chemo within 30 days, or radiotherapy within 90 days. No history of oncological symptoms or problems. Psych: Positive for: anxiety. Musculoskeletal: Negative for joint pain or swelling, back pain or muscle pain. Skin: See HPI. 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 Tendonitis right shoulder PAST SURGICAL HISTORY Procedure Laterality Date EYE SURGERY HX Left 02/18/2018 350-mm Baerveldt glaucoma implant with scleral graft, left eye PAST SURGICAL HISTORY OF PKP OS PAST SURGICAL HISTORY OF 06/02/2018 Keratoplasty OS FAMILY HISTORY Problem Relation Age of Onset Hypertension Mother Heart Mother No Known Problems Father No Ocular Disease No Family History Cancer No Family History Cataract No Family History Glaucoma No Family History Detached Retina No Family History Macular Degen No Family History Blindness No Family History Amblyopia No Family History Strabismus No Family History Anesthesia Problems No Family History Social History Tobacco Use Smoking status: Former Packs/day: 1.00 Years: 50.00 Pack years: 50.00 Types: Cigarettes Quit date: 06/2022 Years since quittin.3 (more content not included)... [facility] [place] CNOVon 10-08-2022 CNOV Office Visit (VALERIE ) LAYNE VASQUEZ ([id number]) 1950 M Date Time Provider Department 10/08/22 3:00 PM TYRESE SAVAGE During your visit today, we recorded the following information about you: Temperature Pulse Blood pressure Weight 98.8 degrees 77/minute 146/78 69.9 kg Height 1.676 m Ashlee Reyes LPN 10/08/2022 3:03 PM Signed REVIEW OF SYSTEMS: General: The patient denies fatigue, denies weight loss, denies weight gain, denies feeling hot, and denies feelings of cold. Eyes: The patient notes glaucoma, notes eye injury/surgery, wears glasses or contacts. Ear/Nose/Throat: The patient denies allergies, denies hayfever, denies ear infections, and denies bloody noses. Cardiovascular: The patient denies chest pain, denies heart disease, notes high blood pressure,denies cardiac stent, denies prior heart attack, denies irregular heart beat, denies high cholesterol, denies poor circulation, denies heart failure, other cardiac issues, denies claudication, denies cold feet, denies peripheral arterial stent. Respiratory: The patient denies tuberculosis, denies pneumonia, denies frequent cough, denies pulmonary embolism, denies shortness of breath, and denies coughing up blood, note other lung problems COPD. Gastrointestinal: The patient denies difficulty swallowing, denies acid reflux, denies ulcers, denies vomiting, denies jaundice/hepatitis, denies gallbladder problems, denies black or tarry stools, denies hemorrhoids, denies bleeding from rectum, denies diverticulitis, denies constipation, denies diarrhea, denies loss of stool control, and denies hernias. Kidney/Bladder: The patient denies kidney stones, denies urine infections, and denies bloody urine. Skin: The patient denies a history of skin cancer, denies bleeding/changing moles, and denies a history of skin rash. Neurologic: The patient denies a history of epilepsy/convulsions, denies headaches, denies head/spinal injuries, and denies stroke/TIA. Psychiatric: The patient denies psychiatric medications, denies depression, and denies voices, denies substance abuse. Endocrine: The patient denies thyroid disorders, denies diabetes, and denies hormonal problems. Hematologic: The patient denies a history of bruising, denies bleeding, and denies anemia, denies blood clots. Infections: The patient denies a history of measles and mumps, denies rheumatic fever, and denies sexually transmitted diseases. Musculoskeletal: The patient denies back pain/injury, denies back problems, denies sciatica, denies knee/foot trouble, denies arthritis, or denies gout. When was patient's last Mammogram screening? N/A Last Colonoscopy: 2019 CORAL Mahmood III, MD 10/08/2022 3:28 PM Signed HISTORY AND PHYSICAL Layne Grimes Christina 1950 REFERRING PHYSICIAN: Betty Winslow DO CHIEF COMPLAINT: Consult (Mass above Left hip ) HPI: The patient is a 72 year old male with a complaint of subcutaneous mass on his left flank area. Patient states that is been there for many many years gradually increasing in size to the point now where he is having discomfort when he lays on that side and cannot get good rest at night. He has had no imaging on it before he has had not any trauma to the area.. The patient is being seen by me today at the request of Dr. Betty Winslow DO for my opinion and advice regarding Lesion of subcutaneous tissue (primary encounter diagnosis). 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 amLODIPine-benazepril (LOTREL) 10-20 mg per capsule Take 1 capsule by mouth as needed. erythromycin (ROMYCIN) 5 mg/gram (0.5 %) ophthalmic ointment Use 1 application in the left eye daily at bedtime. (Patient not taking: Reported on 10/08/2022) prednisoLONE acetate (PRED FORTE, ECONOPRED PLUS) 1 % ophthalmic suspension Use 1 Drop in the left eye twice daily. (Patient not taking: Reported on 11/03/2020 ) diltiazem CD (CARDIZEM CD, CARTIA XT) 180 mg 24 hr capsule Take 180 mg by mouth once daily. hydr (more content not included)... [facility] [place] No Panel InformationOrdered By: Marie Mckeon on 09-24-2022 Troponin I High Sensitivity 8 pg/mL 3.0-78.0 [facility] Comment on above: Please Note: New [place] t Units and Gender Specific Reference Ranges. For more information see Policy Stat Procedure [place] High Sensitivity Troponin (TNIH) and attachments. Absolute lymphocyte countOrd ered By: Maire Mckeon on 09-23-2022 Lymphocytes Auto (Unsp spec) [#/Vol] 2.21 10*3/uL 0.83-4.51 [facility] Basophil percentageOrdered B y: Marie Mckeon on 09-23-2022 Basophils/100 WBC (Bld) 1.0 % 0-1 [facility] Chloride [Moles/Vol] 103 mmol/L 98-107 [facility] Eosinophils/100 WBC (Bld) 6.2 % 0-5 [facility] Glucose [Mass/Vol] 94 mg/dL 74-106 [facility] Neutrophils (Bld) [#/Vol] 5.4 10*3/uL 2.0-7.7 [facility] Neutrophils/100 WBC (Bld) 57.8 % 47-70 [facility] Potassium [Moles/Vol] 3.7 mmol/L 3.5-5.1 [facility] Sodium [Moles/Vol] 141 mmol/L 136-145 [facility] WBC (Bld) [#/Vol] 9.3 10*3/uL 4.4-11.0 [facility] Blood erythrocytes count (nu mber/volume)Ordered By: Marie Mckeon on 09-23-2022 RBC (Bld) [#/Vol] 4.59 10*6/uL 4.6-6.2 [facility] Blood hemoglobin measurement (mass/volume)Ordered By: Marie Mckeon on 09-23-2022 Hemoglobin (Bld) [Mass/Vol] 14.8 g/dL 13.0-16.5 [facility] Blood lymphocytes/100 leukoc ytesOrdered By: Marie Mckeon on 09-23-2022 Lymphocytes/100 WBC (Bld) 23.8 % 19-41 [facility] Blood monocytes/100 leukocyt esOrdered By: Marie Mckeon on 09-23-2022 Monocytes/100 WBC (Bld) 11.0 % 0-10 [facility] Blood platelet mean volumeOr dered By: Marie Mckeon on 09-23-2022 Platelet mean volume (Bld) [Entitic vol] 10.3 fL 6.2-12.0 [facility] Determination of erythrocyte mean corpuscular volume (MCV)Ordered By: Marie Mckeon on 09-23-2022 MCV (RBC) [Entitic vol] 94.8 fL 80-94 [facility] Hematocrit Auto (Bld) [Volum e fraction]Ordered By: Marie Mckeon on 09-23-2022 Hematocrit (Bld) [Volume fraction] 43.5 % 40-54 [facility] Laboratory - Chemistry and C hemistry - challengeOrdered By: Marie Mckeon on 09-23-2022 CO2 [Moles/Vol] 32.0 mmol/L 21.0-32.0 [facility] Urea nitrogen/Creatinine [Mass ratio] 19.9 mg/mg 10-20 [facility] Laboratory - Hematology and Cell countsOrdered By: Marie Mckeon on 09-23-2022 Erythrocyte distribution width (RBC) [Entitic vol] 47.7 fL 35.1-43.9 [facility] Erythrocyte distribution width (RBC) [Ratio] 13.5 % 11.6-14.6 [facility] Immature granulocytes/100 WBC (Bld) 0.200 % 0.0-0.9 [facility] Comment on above: IG% - Immature Granu locytes (promyelocytes, myelocytes and metamyelocytes) > 1% indicates that a LEFT SHIFT is Present. MCH (RBC) [Entitic mass] 32.2 pg 27.0-32.0 [facility] Nucleated RBC/100 WBC (Bld) [Ratio] 0 % 0-5 [facility] MCHC Auto (RBC) [Mass/Vol]Or dered By: Marie Mckeon on 09-23-2022 MCHC (RBC) [Mass/Vol] 34.0 g/dL 32-36 [facility] No Panel InformationOrdered By: Marie Mckeon on 09-23-2022 D-Dimer Quantitative (PE/DVT) < 0.27 FEU/ug/m 0.27-0.49 [facility] Comment on above: NORMAL D-Dimer level (<0.50) indicates no DVT or PE. Estimated Creatinine Clearance Calc 43.36 ml/min [facility] Estimated GFR (MDRD) Amer 64 mL/min >60 [facility] Comment on above: GFR Calc Estimated GFR (MDRD) Non-Af Amer 53 mL/min >60 [facility] Comment on above: Non- GFR Calc Platelets bldOrdered By: Gita Mckeon on 09-23-2022 Platelets (Bld) [#/Vol] 285 10*3/uL 150-450 [facility] Serum or plasma calcium aquiles urement (mass/volume)Ordered By: Marie Mckeon on 09-23-2022 Calcium [Mass/Vol] 8.9 mg/dL 8.5-10.1 [facility] Serum or plasma creatinine m easurement (mass/volume)Ordered By: Marie Mckeon on 09-23-2022 Creatinine [Mass/Vol] 1.41 mg/dL 0.70-1.30 [facility] Comment on above: The validity of the calculated GFR & GFRAA in patients over 70 years has not been determined. Clinical correlation is essential. Serum or plasma urea nitroge n measurement (mass/volume)Ordered By: Marie Mckeon on 09-23-2022 Urea nitrogen [Mass/Vol] 28 mg/dL 02-19 [facility] Thin prep Papanicolaou smear with manual screeningOrdered By: Marie Mckeon on 09-23-2022 Thin prep Papanicolaou smear with manual screening 6 12-17 [facility] Vital Signs Date Time Vital Sign Value Performing Clinician Faci jessicay 08-06-2023 11:15-0500 Body height 167.[address] Betty Winslow Work Phone: [facility] 08-06-2023 11:15-0500 Body weight 67.[address] Betty Winslow Work Phone: [facility] 08-06-2023 11:15-0500 Heart rate 98 /min Dr. Betty Winslow Work Phone: [facility] 08-06-2023 11:15-0500 SaO2% (BldA) [Mass fraction] 98 % Dr. Betty Winslow Work Phone: [facility] 07-02-2023 09:59-0500 Body temperature 98.4 [degF] Dr. Betty Winslow Work Phone: [facility] 07-02-2023 09:59-0500 Body weight 73.[address] Betty Winslow Work Phone: [facility] 07-02-2023 09:59-0500 Diastolic blood pressure 85 mm[Hg] Dr. Betty Winslow Work Phone: [facility] 07-02-2023 09:59-0500 Heart rate 62 /min Dr. Betty Winslow Work Phone: [facility] 07-02-2023 09:59-0500 Respiratory rate 16 /min Dr. Betty Winslow Work Phone: [facility] 07-02-2023 09:59-0500 SaO2% (BldA) [Mass fraction] 97 % Dr. Betty Winslow Work Phone: [facility] 07-02-2023 09:59-0500 Systolic blood pressure 135 mm[Hg] Dr. Betty Winslow Work Phone: [facility] 06-09-2023 15:53-0500 Heart rate 65 /min Dr. Btety Winslow Work Phone: [facility] 06-09-2023 15:53-0500 Respiratory rate 15 /min Dr. Betty Winslow Work Phone: [facility] 06-09-2023 15:53-0500 SaO2% (BldA) [Mass fraction] 95 % Dr. Betty Winslow Work Phone: [facility] 06-09-2023 12:30-0500 Diastolic blood pressure 89 mm[Hg] Dr. Betty Winslow Work Phone: [facility] 06-09-2023 12:30-0500 Systolic blood pressure 134 mm[Hg] Dr. Betty Winslow Work Phone: [facility] 06-09-2023 09:46-0500 Body height 167.[address] Betty Winslow Work Phone: [facility] 06-09-2023 09:46-0500 Body mass index (BMI) [Ratio] 23.8 kg/m2 Dr. Betty Winslow Work Phone: [facility] 06-09-2023 09:46-0500 Body temperature 98 [degF] Dr. Betty Winslow Work Phone: [facility] 06-09-2023 09:46-0500 Body weight 67.[address] Betty Winslow Work Phone: [facility] 02-14-2023 08:20-0400 Body mass index (BMI) [Ratio] 25 kg/m2 Dr. Betty Winslow Work Phone: [facility] 02-14-2023 08:20-0400 Body temperature 98.6 [degF] Dr. Betty Winslow Work Phone: [facility] 02-14-2023 08:20-0400 Body weight 70.[address] Betty Winslow Work Phone: [facility] 02-14-2023 08:20-0400 Diastolic blood pressure 99 mm[Hg] Dr. Betty Winslow Work Phone: [facility] 02-14-2023 08:20-0400 Heart rate 56 /min Dr. Betty Winslow Work Phone: [facility] 02-14-2023 08:20-0400 Respiratory rate 20 /min Dr. Betty Winslow Work Phone: [facility] 02-14-2023 08:20-0400 SaO2% (BldA) [Mass fraction] 95 % Dr. Betty Winslow Work Phone: [facility] 02-14-2023 08:20-0400 Systolic blood pressure 187 mm[Hg] Dr. Betty Winslow Work Phone: [facility] 11-06-2022 14:25-0400 Body height 167.6 cm Lashae Learned PA-C Work Phone: [facility] 11-06-2022 14:25-0400 Body temperature 98.4 [degF] Lashae Learned PA-C Work Phone: [facility] 11-06-2022 14:25-0400 Body weight 70.76 kg Lashae Milad PA-C Work Phone: [facility] 11-06-2022 14:25-0400 Diastolic blood pressure 80 mm[Hg] Lashae Milad PA-C Work Phone: [facility] 11-06-2022 14:25-0400 Heart rate 82 /min Lashae Milad PA-C Work Phone: [facility] 11-06-2022 14:25-0400 SaO2% (BldA) [Mass fraction] 97 % Lashae Milad PA-C Work Phone: [facility] 11-06-2022 14:25-0400 Systolic blood pressure 126 mm[Hg] Lashae Milad PA-C Work Phone: [facility] 10-08-2022 15:01-0500 Body height 167.6 cm Tyrese Savage MD Work Phone: [facility] 10-08-2022 15:01-0500 Body temperature 98.8 [degF] Tyrese Savage MD Work Phone: [facility] 10-08-2022 15:01-0500 Body weight 69.85 kg Tyrees Savage MD Work Phone: [facility] 10-08-2022 15:01-0500 Diastolic blood pressure 78 mm[Hg] Tyrese Savage MD Work Phone: [facility] 10-08-2022 15:01-0500 Heart rate 77 /min Tyrese Savage MD Work Phone: [facility] 10-08-2022 15:01-0500 SaO2% (BldA) [Mass fraction] 97 % Tyrese Savage MD Work Phone: [facility] 10-08-2022 15:01-0500 Systolic blood pressure 146 mm[Hg] Tyrese Savage MD Work Phone: [facility] 09-24-2022 01:16-0500 Diastolic blood pressure 72 mm[Hg] Dr. Betty Winslow Work Phone: [facility] 09-24-2022 01:16-0500 Systolic blood pressure 116 mm[Hg] Dr. Betty Winslow Work Phone: [facility] 09-24-2022 00:53-0500 SaO2% (BldA) [Mass fraction] 99 % Dr. Betty Winslow Work Phone: [facility] 09-23-2022 23:30-0500 Heart rate 68 /min Dr. Betty Winslow Work Phone: [facility] 09-23-2022 23:30-0500 Respiratory rate 16 /min Dr. Betty Winslow Work Phone: [facility] 09-23-2022 21:06-0500 Body height 167.[address] Betty Winslow Work Phone: [facility] 09-23-2022 21:06-0500 Body mass index (BMI) [Ratio] 25.2 kg/m2 Dr. Betty Winslow Work Phone: [facility] 09-23-2022 21:06-0500 Body temperature 98 [degF] Dr. Betty Winslow Work Phone: [facility] 09-23-2022 21:06-0500 Body weight 70.[address] Betty Winslow Work Phone: [facility] 08-15-2022 09:30-0500 Body mass index (BMI) [Ratio] 25.2 kg/m2 Dr. Betty Winslow Work Phone: [facility] 08-15-2022 09:30-0500 Body temperature 98.6 [degF] Dr. Betty Winslow Work Phone: [facility] 08-15-2022 09:30-0500 Body weight 70.[address] Betty Winslow Work Phone: [facility] 08-15-2022 09:30-0500 Diastolic blood pressure 82 mm[Hg] Dr. Betty Winslow Work Phone: [facility] 08-15-2022 09:30-0500 Heart rate 72 /min Dr. Betty Winslow Work Phone: [facility] 08-15-2022 09:30-0500 Respiratory rate 20 /min Dr. Betty Winslow Work Phone: [facility] 08-15-2022 09:30-0500 SaO2% (BldA) [Mass fraction] 95 % Dr. Betty Winslow Work Phone: [facility] 08-15-2022 09:30-0500 Systolic blood pressure 149 mm[Hg] Dr. Betty Winslow Work Phone: [facility] Encounters Encounter Date Encounter Type Care Provider Facility Start: 02-22-2025 End: 02-22-2025 ambulatory Jeanine Cano DYE AND CHEMICAL COORDINATOR-C Work Phone: -Cat Scan [facility] Start: 02-22-2025 End: 02-22-2025 Patient encounter procedure Jeanine Cano DYE AND CHEMICAL COORDINATOR-C -Cat Scan [facility] Work Phone: Start: 02-22-2025 End: 02-22-2025 ambulatory Jeanine Cano DYE AND CHEMICAL COORDINATOR Facility:[facility] Start: 02-07-2025 End: 02-08-2025 Refill Haleigh Giles MD Work Phone: Ophthalmology Comment on above: Refill Request Start: 09-09-2024 End: 09-09-2024 ambulatory Richard Chi Lee Facility:[facility] Start: 08-06-2024 ambulatory Chris Dorothy Facility:[facility] Start: 08-06-2024 End: 08-06-2024 ambulatory Richard Chi Lee Facility:[facility] Start: 07-17-2024 End: 07-17-2024 ambulatory Richard Chi Lee Facility:[facility] Start: 06-15-2024 End: 06-15-2024 ambulatory Richard Chi Lee Facility:[facility] Start: 06-09-2024 End: 06-09-2024 ambulatory Richard Chi Lee Facility:[facility] Start: 03-09-2024 End: 03-09-2024 ambulatory Betyt Winslow Facility:[facility] Start: 12-10-2023 Refill Tiff Ohara MD Work Phone: Ophthalmology Comment on above: Refill Request Start: 08-07-2023 Non-patient / Non-visit Dr. Pete Winslow Work Phone: [facility] Start: 08-06-2023 End: 08-06-[address] Betty Winslow Work Phone: [facility] Work Phone: Start: 08-06-2023 End: 08-06-[address] Betty Winslow Work Phone: [facility]-Pulmonary Services/Neurology Work Phone: Start: 07-16-2023 Non-patient / Non-visit Dr. Pete Winslow Work Phone: [facility] Start: 07-15-2023 End: 07-15-[address] Betty Winslow Work Phone: [facility] Work Phone: Start: 07-15-2023 End: 07-15-[address] [facility] Work Phone: Start: 07-02-2023 End: 07-02-[address] 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 Betty Winslow Work Phone: [facility]-Emergency Department Work Phone: Start: 02-20-2023 End: 02-20-[address] Betty Winslow Work Phone: [facility] Work Phone: Start: 02-14-2023 End: 02-14-[address] 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; Traumatic glaucoma, left, indeterminate stage; Pseudophakia Start: 11-21-2022 End: 11-22-2022 ambulatory TIFF OHARA Facility:[facility] Start: 11-21-2022 End: 11-21-2022 Patient encounter procedure Tiff Ohara MD Work Phone: Ophthalmology Comment on above: 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 Start: 10-19-2022 End: 10-20-2022 ambulatory [facility] Facility:[facility] Start: 10-19-2022 Encounter for other preprocedural examination BETTY [facility] Start: 10-08-2022 End: 10-09-2022 ambulatory [facility] Facility:[facility] Start: 10-08-2022 End: 10-08-2022 Patient encounter procedure Tyrese Savage MD Work Phone: General Surgery Comment on above: Lesion of subcutaneo us tissue (Primary Dx) Start: 09-23-2022 End: 09-24-2022 Emergency department patient visit Dr. Betty Winslow Work Phone: [facility]-Emergency Department Start: 08-15-2022 End: 08-15-[address] Betty Winslow Work Phone: [facility]-Pulmonary Medicine [facility] Start: 01-02-2022 End: 01-02-2022 Patient encounter procedure [facility]-Cat Scan, [facility] Procedures Date Procedure Procedure Detail Performing Clinician Start: 02-22-2025 CT of chest Jeanine Cano DYE AND CHEMICAL COORDINATOR-C Work Phone: Start: 06-09-2023 Computed tomography angiography of abdominal and/or pelvic blood vessel Dr. Betty Winslow Work Phone: Start: 06-09-2023 CT of abdomen and pe lvis without contrast Dr. Betty Winslow Work Phone: Start: 06-09-2023 X-ray of lumbosacral spine Dr. Betty Winslow Work Phone: Start: 02-20-[address] Betty escoabr Work Phone: Start: 09-23-2022 Plain chest X-ray Dr. Shy Winslow Work Phone: Start: 01-02-2022 CT of chest Start: 09-28-2019 Colonoscopy Tyrese slater MD Work Phone: Plan of Treatment Date Care Activity Detail Author Start: 11-06-2026 Urine microalbumin profile DTaP,Tdap,Td Vaccine (2 - Td or Tdap) [facility] Start: 04-05-2025 Influenza vaccination Influenza Vacc ine (#1) [facility] Start: 03-17-2025 End: 03-17-2025 Patient encounter procedure 03/17/2025 9:15 AM EDT Office Visit [facility] [address] [place] [address] Tiff Ohara MD [address] [place] [address] Diagn[facility] [address] [address] Return in about 6 months (around 12/09/2023) for Dr. Ohara for IOP, cornea and cataract check. Ophthalmology Comment on above: Return in about 6 mo nths (around 12/09/2023) for Dr. Ohara for IOP, cornea and cataract check. Start: 08-05-2024 Advance Directive Discussion Advance Directive Discussion [facility] Start: 04-05-2024 Covid-19 Vaccine ( season) Covid-19 Vaccine ( season) [facility] Start: 04-05-2024 Influenza vaccination Influenz a Vaccine (Season Ended) [facility] Start: 08-05-2023 Advance Directive Discussion Advance Directive Discussion [facility] Start: 08-05-2023 Behavioral Health Screening Behavioral Health Screening [facility] Start: 04-05-2023 Covid-19 Vaccine () Covid-19 Vaccine ( season) [facility] Start: 04-05-2023 Influenza vaccination C [facility] Start: 09-23-2022 [facility] Start: 08-05-2022 ADVANCE DIRECTIVE DISCUSSION ADVANCE DIRECTIVE DISCUSSION [facility] Start: 08-05-2022 DEPRESSION ASSESSMENT DEPRESSION ASS ESSMENT [facility] Start: 04-05-2022 Influenza vaccination INFLUENZA (#1) [facility] Start: 09-28-2020 Colonoscopy COLONOSCOPY [facility] Start: 09-28-2020 COLORECTAL CANCER SCREENING COLORECTAL CANCER SCREENING [facility] Start: 2016 PNEUMOCOCCAL: 65+ (1 - PCV) PNEUMOCOCCAL: 65+ (1 - PCV) [facility] Start: 05-05-2016 Medicare Annual Well ness Visit Medicare Annual Wellness Visit [facility] Start: 2011 RSV Vaccine (1 - 1-d ose 60+ series) RSV Vaccine (1 - 1-dose 60+ series) [facility] Start: 2011 RSV Vaccine (1 - Ris k 60-74 years 1-dose series) RSV Vaccine (1 - Risk 60-74 years 1-dose series) [facility] Start: 2001 Influenza vaccination LUNG CANCER SC REENING [facility] Start: 2001 Screening for malign ant neoplasm of lung Lung Cancer Screening [facility] Start: 2001 SHINGRIX VACCINE (1 of 2) SHINGRIX VACCINE (1 of 2) [facility] Start: 1996 COLOGUARD (FIT-DNA) COLOGUARD (FIT-D NA) [facility] Start: [address] COLONOGRAPHY [facility] Start: 1996 DIABETES SCREEN DIABETES SCREEN [facility] Start: 1996 Diabetes Screening Diabetes Screenin g [facility] Start: 1996 FECAL OCCULT BLOOD FECAL OCCULT BLOO D [facility] Start: 1996 Screening for malign ant neoplasm of colon [facility] Start: [address] [facility] Start: 1986 Lipid 1996 panel - S faviola or Plasma Lipid Screening [facility] Start: 1986 Lipid panel [facility] Start: 1986 LIPID SCREEN LIPID SCREEN [facility] Start: 1981 Zoledronic acid therapy ALPHA- 1 ANTITRYPSIN DEFICIENCY SCREENING [facility] Start: 1970 Pneumococcal Vaccine : 50+ (1 of 2 - PCV) Pneumococcal Vaccine: 50+ (1 of 2 - PCV) [facility] Start: 1970 Urine microalbumin profile DTAP,TDAP,TD (1 - Tdap) [facility] Start: 1969 ANNUAL PCP TEAM MALLET CUTTER CARLINE DISEASE VISIT ANNUAL PCP TEAM CHRONIC DISEASE VISIT [facility] Start: 1969 BP CONTROLLED (<130/80) BP CON TROLLED (<130/80) [facility] Start: 1969 Depression Screening Depression Scre ening [facility] Start: 1969 HEPATITIS C SCREENING HEPATITIS C [facility] Start: 1969 Hepatitis C screening Hepatitis C [facility] Start: 1969 SPIROMETRY SPIROMETRY [facility] Start: 1957 Pneumococcal Vaccine : 65+ (1 - PCV) Pneumococcal Vaccine: 65+ (1 - PCV) [facility] Start: 1957 Pneumococcal Vaccine : 65+ (1 of 2 - PCV) Pneumococcal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 no gallop. SKIN: Color normal, no rash, warm, dry, intact. EXTREMITIES: Normal appearance, no pedal edema. NEURO: Oriented x4. PSYCH: Normal affect. Const Vital Signs: 09/23/22 21:06 09/23/22 21:24 09/23/22 21:26 Temperature 98.0 F Temperature Source Temporal Pulse Rate 77 Respiratory Rate 18 Respiratory Effort Short of Breath Respiratory Depth Normal Respiratory Pattern Normal Blood Pressure 162/95 H Blood Pressure Mean 117 Pulse Ox 100 100 Oxygen Delivery Method Room Air Room Air Room Air 09/23/22 23:30 Temperature Temperature Source Pulse Rate 68 Respiratory Rate 16 Respiratory Effort Respiratory Depth Respiratory Pattern Normal Blood Pressure Blood Pressure Mean Pulse Ox Oxygen Delivery Method <Dr. Jayla Nunez DO - Last Filed: 09/24/22 00:59> Physical Exam Const Vital Signs: 09/23/22 21:06 09/23/22 21:24 09/23/22 21:26 Temperature 98.0 F Temperature Source Temporal Pulse Rate 77 Respiratory Rate 18 Respiratory Effort Short of Breath Respiratory Depth Normal Respiratory Pattern Normal Blood Pressure 162/95 H Blood Pressure Mean 117 Pulse Ox 100 100 Oxygen Delivery Method Room Air Room Air Room Air 09/23/22 23:30 Temperature Temperature Source Pulse Rate 68 Respiratory Rate 16 Respiratory Effort Respiratory Depth Respiratory Pattern Normal Blood Pressure Blood Pressure Mean Pulse Ox Oxygen Delivery Method MDM <LARA Maza - Last Filed: 09/23/22 22:02> [facility] Narrative Medical decision making narrative: Patient presents with dyspnea and anxiety with a sensation that is hard to take a deep breath while laying down at night. During the day when he is active he has no symptoms. He has no chest pain. He appears well and nontoxic. Initially BP was 162/95 with otherwise normal vital signs. During my exam is 138/80. He speaking in full sentences in no distress. There is no stridor or wheezing. His dyspnea sounds atypical for ACS but due to his age and risk factors a cardiac work-up will be done. He has no risk factors for DVT/PE. EKGis sinus rhythm with no ischemic changes. Labs are pending. Lab Data Attestation: I reviewed the patient's lab results. Labs: Laboratory Results - last 24 hr 09/23/22 09/23/22 09/23/22 21:44 21:44 22:00 WBC 9.3 RBC 4.59 L Hgb 14.8 Hct 43.5 MCV 94.8 H MCH 32.2 H MCHC 34.0 RDW Std Deviation 47.7 H RDW Coeff of Ernestine 13.5 Plt Count 285 MPV 10.3 Immature Gran % (Auto) 0.200 Neut % (Auto) 57.8 Lymph % (Auto) 23.8 [place] % (Auto) 11.0 H Eos % (Auto) 6.2 H Baso % (Auto) 1.0 Absolute Neuts (auto) 5.4 Absolute Lymphs (auto) 2.21 Nucleated RBC % 0 D-Dimer Quant (PE/DVT) < 0.27 L Sodium 141 Potassium 3.7 Chloride 103 Carbon Dioxide 32.0 Anion Gap 6 BUN 28 H Creatinine 1.41 H Estim Creat Clear Calc 43.36 Est GFR (MDRD) Af Amer 64 Est GFR (MDRD) Non-Af 53 L BUN/Creatinine Ratio 19.9 Glucose 94 Calcium 8.9 Troponin I High Sens 9 09/24/22 00:37 WBC RBC Hgb Hct MCV MCH MCHC RDW Std Deviation RDW Coeff of Ernestine Plt Count MPV Immature Gran % (Auto) Neut % (Auto) Lymph % (Auto) [place] % (Auto) Eos % (Auto) Baso % (Auto) Absolute Neuts (auto) Absolute Lymphs (auto) Nucleated RBC % D-Dimer Quant (PE/DVT) Sodium Potassium Chloride Carbon Dioxide Anion Gap BUN Creatinine Estim Creat Clear Calc Est GFR (MDRD) Af Amer Est GFR (MDRD) Non-Af BUN/Creatinine Ratio Glucose Calcium Troponin I High Sens 8 Radiography Diagnostic Testing: Clinical Impression(s) from Imaging Studies Chest X-Ray 09/23/22 22:04 IMPRESSION: Findings of pulmonary emphysema again demonstrated. No acute cardiopulmonary disease process identified. Electronically Signed: Bandar Valdez MD at 22:14 EST , EKG Initial EKG: Attestation: I personally reviewed and interpreted this EKG as follows: Interpretation: Sinus Rhythm and No Acute Injury Pattern Comments: ED attending interpretation of EKG is normal sinus rhythm at 65 bpm, no ectopy or acute ST changes <Dr. Jayla Nunez, DO - Last Filed: 09/24/22 00:59> MDM Lab Data Labs: Laboratory Results - last 24 hr 09/23/22 09/23/22 09/23/22 21:44 21:44 22:00 WBC 9.3 RBC 4.59 L Hgb 14.8 Hct 43.5 MCV 94.8 H MCH 32.2 H MCHC 34.0 RDW Std Deviation 47.7 H RDW Coeff of Ernestine 13.5 Plt Count 285 MPV 10.3 Immature Gran % (Auto) 0.200 Neut % (Auto) 57.8 Lymph % (Auto) 23.8 [place] % (Auto) 11.0 H Eos % (Auto) 6.2 H Baso % (Auto) 1.0 Absolute Neuts (auto) 5.4 Absolute Lymphs (auto) 2.21 Nucleated RBC % 0 D-Dimer Quant (PE/DVT) < 0.27 L Sodium 141 Potassium 3.7 Chloride 103 Carbon Dioxide 32.0 Anion Gap 6 BUN 28 H Creatinine 1.41 H Estim Creat Clear Calc 43.36 Est GFR (MDRD) Af Amer 64 Est GFR (MDRD) Non-Af 53 L BUN/Creatinine Ratio 19.9 Glucose 94 Calcium 8.9 Troponin I High Sens 9 09/24/22 00:37 WBC RBC Hgb Hct MCV MCH MCHC RDW Std Deviation RDW Coeff of Ernestine Plt Count MPV Immature Gran % (Auto) Neut % (Auto) Lymph % (Auto) [place] % (Auto) Eos % (Auto) Baso % (Auto) Absolute Neuts (auto) Absolute Lymphs (auto) Nucleated RBC % D-Dimer Quant (PE/DVT) Sodium Potassium Chloride Carbon Dioxide Anion Gap BUN Creatinine Estim Creat Clear Calc Est GFR (MDRD) Af Amer Est GFR (MDRD) Non-Af BUN/Creatinine Ratio Glucose Calcium Troponin I High Sens 8 Radiography Diagnostic Testing: Clinical Impression(s) from Imaging Studies Chest X-Ray 09/23/22 22:04 IMPRESSION: Findings of pulmonary emphysema again demonstrated. No acute cardiopulmonary disease process identified. Electronically Signed: Bandar Valdez MD at 22:14 EST , Treatment and Re-Evaluation Narrative: I have personally performed a face to face assessment of the patient and have reviewed the ROBERT Note. I performed a substantive portion of the visit including all aspects of the following. My cabello findings include: Medical Decison Making: Patient is evaluated for sensation of shortness of breath. It is been going on for at least a week but sounds like actually longer. He says he feels pretty good during the day but at night when he tries to sleep he cannot sleep and then feels like he cannot take a deep breath. Thismakes him feel anxious. He thinks it might be anxiety but is not sure. He did quit smoking 2 months ago. Exam is benign. He is not wheezing. Does have someslightly diminished breath sounds however I suspect this is his baseline. Is not tachypneic, tachycardic or hypoxic. Is age greater than 50 he does have a D-dimer which is ordered. This is normal. Otherwise low suspicion for pulmonary emboli and I do not think CTA is indicated. He is low risk per Wells criteria. This does not appear to be a COPD exacerbation. He is given a DuoNebin the ER as he does have an episode of feeling more anxious and short of breathhowever he does not have any vital sign changes or arrhythmia on telemetry during this. He seems to be more hyperventilating. No significant change with breathing treatment however he states he felt better after talking to the respiratory therapist. Initial high-sensitivity troponin is 9 and EKG does not show any ischemic changes. Anticipate if EKG is normal he can be discharged home. Encouraged to follow-up with his career development consultant as well as primary care doctor. Will be started on Atarax to help with his sleep and anxiety. Is counseled the risk of falls and confusion associated with any type of anxiety orsedating medication especially in a patient in the 70s. Other additions or changes: [None]. Discharge Plan Triage Chief Complaint: Shortness of Breath ED Midlevel Provider: Marie Mckeon ED Provider: Jayla Nunez Dx/Rx/DC Orders Clinical Impression: Dyspnea, Anxiety Instructions: ED Anxiety Reaction, ED Dyspnea Prescriptions: New hydroxyzine pamoate 25 mg capsule 25 mg PO BID Qty: 14 0RF No Action albuterol sulfate 90 mcg/actuation HFA aerosol inhaler 2 puff INHALATION Q6H PRN (Reason: shortness of breath or wheezing) Qty: 18 1RF Trelegy Ellipta 100-62.5-25 mcg blister with device 1 inh inhalation DAILY Qty: 3 3RF diltiazem HCl 180 MG capsule,extended release 24 hr 180 mg PO QHS lisinopril 10 MG tablet 10 mg PO QHS hydrochlorothiazide 25 MG tablet 25 mg PO DAILY Primary Care Provider: Betty Winslow Referrals: Betty Winslow DO [Primary Care Provider] - Activity Restrictions/Additional Instructions: Your work-up is largely normal. Please continue taking all of your maintenance medications as prescribed. You been given a prescription for anxiety medication(hydroxyzine) to try to help with your symptoms. While unlikely, this can increase the risk of confusion and falls please be careful when taking it. Please follow-up with your primary care doctor for further treatment and management of your symptoms. At this time we do think you are safe to go home. Disposition Disposition: Home, Self Care What to do if you have Problems For any increased pain, shortness of breath, bleeding, nausea or vomiting, chestpain, or any unexpected problems, contact your Primary Care Provider. Call [facility] ([phone]) or report to the closest Emergency Room. Call 911 if necessary. 09/23/222201 <Electronically signed by Marie BERMUDEZ> Cosigner Signature (if applicable): 09/24/22 0059 <Electronically signed by Jayla Nunez DO> CC: Dr. Betty Winslow DO ~ Signed [facility] Work Phone: Evaluation noteNo assessment information available [facility] Work Phone: Evaluation note* Diagnosis Onset Date Resolution Status Asthma-COPD overlap syndrome chronic Smoking greater than 40 pack years chronic Stage 3 severe COPD by GOLD classification [facility] Work Phone: Evaluation note* Diagnosis Lesion of subcutaneous tissue- Primary Unspecified disorder of skin and subcutaneous tissue Lesion of subcutaneous tissue Unspecified disorder of skin and subcutaneous tissue [facility] Diagnosis Aftercare following surgery- Primary Encounter for other specified aftercare documented [facility]* Diagnosis Combined forms of age-related cataract of right eye- Primary Other and combined forms of senile cataract Bullous keratopathy of left eye Bullous keratopathy S/P PKP (penetrating keratoplasty) 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, left, indeterminate stage Pseudophakia Lens replaced by other means [facility]* Diagnosis Regular astigmatism of both eyes- Primary Regular astigmatism Combined forms of age-related cataract of right eye Other and combined forms of senile cataract Bullous keratopathy of left eye Bullous keratopathy S/P PKP (penetrating keratoplasty) 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, left, indeterminate stage Pseudophakia Lens replaced by other means [facility]* Diagnosis Onset Date Resolution Status Asthma-COPD overlap syndrome chronic Smoking greater than 40 pack years [facility] Work Phone: Evaluation note* Diagnosis Combined forms of age-related cataract of right eye- Primary Other and combined forms of senile cataract Regular astigmatism of both eyes Regular astigmatism Bullous keratopathy of left eye Bullous keratopathy S/P PKP (penetrating keratoplasty) 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 Please continue taking all of your maintenance medications as prescribed. You been given a prescription for anxiety medication (hydroxyzine) to try to help with your symptoms. While unlikely, this can increase the risk of confusion and falls please be careful when taking it. Please follow-up with your primary care doctor for further treatment and management of your symptoms. At this time we do think you are safe to go home.[facility] Work Phone: Hospital Discharge instructions Additional Instructions I suspect the pain in your back is more from muscles. We will treat with a short course of pain medicine as well as a burst of steroids. You may also take [id number] Tylenol as needed for pain. Use anti-inflammatory such as ibuprofen or naproxen sparingly your kidney function is borderline. Make sure you are drinking plenty of fluids. He been given referral for vascular surgery for further follow-up/monitoring of this aneurysm. In addition please follow-up with your family doctor for monitoring of cyst on your right kidney. It is unlikely they are malignant.[facility] Work Phone: Reason for referral (narrative)No reason for referral information availableWSelect [facility] [place] Work Phone: Chief Complaint and Reason for Visit Chief Complaint NICOTINE DEPENDENCE Chief Complaint 6 M FU SOB Reason for Visit Asthma-COPD overlap syndrome Smoking greater than 40 pack years Stage 3 severe COPD by GOLD classification Chief Complaint 6 M FU Nicotine dependence, cigarettes, uncomplicated BACK PAIN Reason for Visit Asthma-COPD overlap syndrome Smoking greater than 40 pack years Chief Complaint BACK PAIN CONSULT-ER F/U FOR ANEURYSM COPD COPD COPD COPD Reason for Visit Abdominal aortic ect nell Chief Complaint BACK PAIN CONSULT-ER F/U FOR ANEURYSM COPD COPD Reason for Visit Abdominal aortic ect nell Chief Complaint Admit Date NICOTINE DEPENDENCE February 22, 2025 4:24 pm Advance Directives No Advanced Directives Records Found Advance Directive Response Recorded Date/ Time Living Will No September 25 020 2:33pm Power of Table And Desk Finisher No September 25, 2019 2:33pm Advance Directive Response Recorded Date/ Time Name of Medical Power of Table And Desk Finisher GEOR[place]IA MOULTON- DAUGHTER September 23, 2022 9:26pm Living Will Yes September 23 023 9:26pm Power of Table And Desk Finisher Yes September 23, 2022 9:26pm Advance Directive Response Recorded Date/ Time Living Will No June 09 9:52am Power of Table And Desk Finisher No June 09, 2023 9:52am Advance Directive Response Recorded Date/ Time Living Will No June 09 10:52am Do you have a Healthcare Power of Table And Desk Finisher? No June 09, 2023 10:52am Summary Purpose Family History No Family History Records Found Medications Administered Section Inactive Administered Medications - up to 3 most recent administrations Medication Order MAR Action Action Date Dose Rate Site PHENYLephrine 2.5 % 1 Drop (AK-DILATE, VALERIA-SYNEPHRINE) 1 Drop, BOTH EYES, DIRECTED, Starting on Sat11/21/22 at 1630, Until Sat11/22/22 at 0429, Administer for dilation PROTECT FROM LIGHT Given 11/21/2022 4:30 PM EDT 1 Drop proparacaine 0.5 % 1 Drop (ALCAINE) 1 Drop, BOTH EYES, DIRECTED, Starting on Sat11/21/22 at 1630, Until Kiersten 11/22/22 at 0429, Administer for pneumo tonometry, tonopen tonometry, or pachymetry. In the event of a proparacaine shortage, administer tetracaine 0.5% ophthalmic drops 1 drop in the left eye as directed for pneumo tonometry, tonopen tonometry, or pachymetry Given 11/21/2022 4:30 PM EDT 1 Drop tropicamide 1 % 1 Drop (MYDRIACYL) 1 Drop, BOTH EYES, DIRECTED, Starting on Sat11/21/22 at 1630, Until Kiersten 11/22/22 at 0429, Administer for dilation Given 11/21/2022 4:30 PM EDT 1 Drop Inactive Administered Medications - up to 3 most recent administrations Medication Order MAR Action Action Date Dose Rate Site PHENYLephrine 2.5 % 1 Drop (AK-DILATE, VALERIA-SYNEPHRINE) 1 Drop, RIGHT EYE, DIRECTED, Starting on Sat06/10/23 at 1500, Until Sat06/11/23 at 0259, Administer for dilation PROTECT FROM LIGHT Given 06/10/2023 2:44 PM EST 1 Drop proparacaine 0.5 % 1 Drop (ALCAINE) 1 Drop, RIGHT EYE, DIRECTED, Starting on Sat06/10/23 at 1500, Until Sat06/11/23 at 0259, Administer for pneumo tonometry, tonopen tonometry, or pachymetry. In the event of a proparacaine shortage, administer tetracaine 0.5% ophthalmic drops 1 drop in the right eye as directed for pneumo tonometry, tonopen tonometry, or pachymetry Given 06/10/2023 2:44 PM EST 1 Drop tropicamide 1 % 1 Drop (MYDRIACYL) 1 Drop, RIGHT EYE, DIRECTED, Starting on Sat06/10/23 at 1500, Until Sat06/11/23 at 0259, Administer for dilation Given 06/10/2023 2:44 PM EST 1 Drop Additional Source Comments Goals (unrecognized section and content) Goals may be documented in a n alternate sectionGoals may be documented in an alternate sectionGoals may be documented in an alternate sectionGoals may be documented in an alternate sectionGoals may be documented in an alternate sectionGoals may be documented in an alternate section Care Teams (unrecognized sec tion and content) Team Status: Active Member Role Status Dates Dr. Betty Winslow DO Family Provider Active Dr. Betty Winslow , DO Primary Care Provider Active Team Status: Inactive Member Role Status Dates Dr. Betty Winslow DO Primary Care Provider, Referrin g Provider Active Dr. Luis Carlos Newman MD Attending Provider Active Team Status: Inactive Member Role Status Dates Dr. Betty Winslow DO Primary Care Provider Active Dr. Jayla Nunez DO Emergency Provider Active Oil Well Logger Relationship Specialty Start Date End Date Betty Winslow DO [address] [place], [place] [id number] PCP - General Family Medicine 05/15/18 Oil Well Logger Relationship Specialty Start Date End Date Betty Winslow DO [address] [place], [place] [address] PCP - General Family Medicine 05/15/18 Oil Well Logger Relationship Specialty Start Date End Date Betty Winslow DO [address] [place], [place] [id number] PCP - General Family Medicine 05/15/18 Oil Well Logger Relationship Specialty Start Date End Date Betty Winslow DO [address] [place], [place] [phone] PCP - General Family Medicine 05/15/18 Team Status: Inactive Member Role Status Dates Dr. Betty Winslow , DO Primary Care Provider, Referrin g Provider Active Jeanine Cano DYE AND CHEMICAL COORDINATOR, DYE AND CHEMICAL COORDINATOR-C Attending Provider Active Team Status: Inactive Member Role Status Dates Dr. Betty Winslow , DO Primary Care Provider Active Jeanine Cano DYE AND CHEMICAL COORDINATOR, DYE AND CHEMICAL COORDINATOR-C Attending Provider, Referrin g Provider Active Oil Well Logger Relationship Specialty Start Date End Date Betty Winslow DO [address] [place], [place] [id number] PCP - [facility] 05/15/18 Team Status: Inactive Member Role Status Dates Dr. Betty Winslow , DO Primary Care Provider, Referrin g Provider Active LARA Malik Attending Provider Active Team Status: Active Member Role Status Dates Dr. Betty Winslow DO Primary Care Provider Active Jeanine Cano DYE AND CHEMICAL COORDINATOR, DYE AND CHEMICAL COORDINATOR-C Referring Provider, Other Pr ovider Active Dr. Jah Shell , DO Attending Provider Active Team Status: Active Member Role Status Dates Dr. Betty Winslow , DO Primary Care Provider Active Jeanine Cano DYE AND CHEMICAL COORDINATOR, DYE AND CHEMICAL COORDINATOR-C Referring Provider, Other Pr ovider Active Dr. Luis Carlos Newman MD Attending Provider Active Team Status: Inactive Member Role Status Dates Dr. Betty Winslow DO Primary Care Provider Active Dr. Jayla Nunez , DO Attending Provider, Taina wagoner Active Oil Well Logger Relationship Specialty Start Date End Date Betty Winslow DO [address] [place], [place] [address] PCP - [facility] Medicine 05/15/18 Oil Well Logger Relationship Specialty Start Date End Date Betty Winslow DO [address] [place], [place] [id number] PCP [facility] Medicine 05/15/18 Team Status: Active Member Role/Relationship Status Dates Dr. Richard Howard MD Primary Care Provider Active Team Status: Inactive Member Role/Relationship Status Dates Jeanine Cano NP, DYE AND CHEMICAL COORDINATOR-C Attending Provider Active Start: February 22, 2025 End: February 22, 2025 Jeanine Cano DYE AND CHEMICAL COORDINATOR, DYE AND CHEMICAL COORDINATOR-C Referring Provider Active Start: February 22, 2025 End: February 22, 2025 Dr. Richard Howard MD Primary Care Provider Active Start: February 22, 2025 End: February 22, 2025 Source Comments (unrecognize d section and content) In the event this informatio n is protected by the Federal Confidentiality of Alcohol and Drug Abuse Patient Records regulations: The Federal rules restrict any use of the information to criminally investigate or prosecute any alcohol or drug abuse patient.[facility] the event this information is protected by the Federal Confidentiality of Alcohol and Drug Abuse Patient Records regulations: The Federal rules restrict any use of the information to criminally investigate or prosecute any alcohol or drug abuse patient.[facility] the event this information is protected by the Federal Confidentiality of Alcohol and Drug Abuse Patient Records regulations: The Federal rules restrict any use of the information to criminally investigate or prosecute any alcohol or drug abuse patient.[facility] the event this information is protected by the Federal Confidentiality of Alcohol and Drug Abuse Patient Records regulations: The Federal rules restrict any use of the information to criminally investigate or prosecute any alcohol or drug abuse patient.[facility] the event this information is protected by the Federal Confidentiality of Alcohol and Drug Abuse Patient Records regulations: The Federal rules restrict any use of the information to criminally investigate or prosecute any alcohol or drug abuse patient.[facility] the event this information is protected by the Federal Confidentiality of Alcohol and Drug Abuse Patient Records regulations: The Federal rules restrict any use of the information to criminally investigate or prosecute any alcohol or drug abuse patient.[facility] the event this information is protected by the Federal Confidentiality of Alcohol and Drug Abuse Patient Records regulations: The Federal rules restrict any use of the information to criminally investigate or prosecute any alcohol or drug abuse patient.[facility] Reason for Visit (unrecogniz ed section and content) Reason Comments Consult Mass above Left hip Reason Comments Surgical Follow Up Soft tissue tumor re moval Reason Comments Blurred Vision Right Eye Reason Comments Bullous Keratopathy Follow Up Reason Comments Cataract Follow Up Reason Onset Date Comments Refill Request 12/10/2023 Reason Onset Date Comments Refill Request 02/07/2025 (unrecognized sect ion and content) No Status Records FoundNo Status Records FoundNo Status Records Found INFORMATION SOURCE (unrecogn ized section and content) DATE CREATED AUTHOR 11/02/2022 [facility] DATE CREATED AUTHOR AUTHOR'S ORGANIZ ATION 06/11/2023 [place] DATE CREATED AUTHOR AUTHOR'S ORGANIZ ATION 02/27/2025 [facility] FOR RECORDS PERTAINING TO PATIENTS WHO ARE OR HAVE BEEN ENROLLED IN A CHEMICAL DEPENDENCY/SUBSTANCEABUSE PROGRAM, SOME INFORMATION MAY BE OMITTED. This clinical summary was aggregated from multiple sources. Caution should be exercised in using it in the provision of clinical care. This summary normalizes information from multiple sources, and as a consequence, information in this document may materially change the coding, format and clinical context of patient data. In addition, data may be omitted in some cases. CLINICAL DECISIONS SHOULD BE BASED ON THE PRIMARY CLINICAL RECORDS. [facility] [employer] [facility]. provides no warranty or guarantee of the accuracy or completeness of information in this document.
--- OUTSIDE RECORDS SUMMARY | 2025-03-10 16:44 | XMS RPT_ITS | CCD ---
Author Organization [facility] Care Team Providers Care Recreational Therapy Aide Name Role Phone Dr. Betty Winslow Primary Care Provider [phone] Dr. Betty Winslow Referring Provider Dr. Luis Carlos Newman Attending Provider Betty Winslow DO Primary Care Provider BETTY WINSLOW Primary Care Unavailable TYRESE SAVAGE P Attending Unavailable TYRESE SAVAGE P Admitting Unavailable Dr. Betty Winslow Primary Care Provider [phone] Dr. Betty Winslow Referring Provider Jerome WORKFORCE MANAGEMENT COORDINATOR, WORKFORCE MANAGEMENT COORDINATOR-C Jeanine Attending Provider BETTY WINSLOW Primary [...] Dr. Betty Winslow Primary Care Provider [phone] Dr. Betty Winslow Referring Provider LARA Morales Attending Provider Jerome WORKFORCE MANAGEMENT COORDINATOR, WORKFORCE MANAGEMENT COORDINATOR-C Jeanine Referring Provider Jerome WORKFORCE MANAGEMENT COORDINATOR, WORKFORCE MANAGEMENT COORDINATOR-C Jeanine Other Provider Dr. Jah Shell Attending Provider Dr. Luis Carlos Newman Attending Provider Betty Winslow DO Elena Primary Care Provider Jerome WORKFORCE MANAGEMENT COORDINATOR-C, Jeanine Attending Provider Jerome AYOUB-C, Jeanine Referring Provider Dr. Richard Howard MD, Chi Primary Care Provider Betty Winslow Primary Care Unavailable Betty Winslow Referring Unavailable Jerome WORKFORCE MANAGEMENT COORDINATOR, Jeanine Attending Unavailable Dorothy Artesian Attending Unavailable Lee, Richard Chi Primary Care Unavailable Lee, Richard Chi Attending Unavailable Lee, Richard Chi Primary Care Unavailable Lee, Richard Chi Primary Care Unavailable Lee, Richard Chi Attending Unavailable Lee, Richard Chi Primary Care Unavailable Lee, Richard Chi Attending Unavailable Jerome WORKFORCE MANAGEMENT COORDINATOR, Jeanine Attending Unavailable Jerome WORKFORCE MANAGEMENT COORDINATORJeanine Referring Unavailable Lee, Richard Chi Primary Care Unavailable Lee, Richard Chi Attending Unavailable Lee, Richard Chi Referring Unavailable Lee, Richard Chi Primary Care Unavailable Lee, Richard Chi Attending Unavailable Lee, Richard Chi Primary Care Unavailable Lee, Richard Chi Attending Unavailable Lee, Richard Chi Referring Unavailable Lee, Richard Chi Primary Care Unavailable Medications Current Medications Medication Drug Class(es) Dates Sig (Normalized) Sig (Original) [id number] 200 actuat albuterol 0.09 mg/actuat metered dose [...] sources) Anticholinergic, Corticosteroid, beta2-Adrenergic Agonist Start: 10-25-2023 Btnjjyrsghs-Flhrrgazp-Dnefs ter (Trelegy Ellipta) 100-62.5-25 mcg blister with device Active 1 NMA INHALATION DAILY 3 October 25, 2023 9:42am Stage 3 severe COPD by GOLD classification Asthma-chronic obstructive pulmonary disease overlap syndrome Chronic obstructive pulmonary disease, unspecified Start: 08-15-2023 End: 10-25-2023 Gzdihheknay-Jgiapeuta-Atqcfi er (Trelegy Ellipta) 100-62.5-25 mcg blister with device Discontinued 1 NMA INHALATION DAILY 3 3 August 15, 2023 1:29pm October 25, 2023 9:42am Stage 3 severe COPD by GOLD classification Asthma-chronic obstructive pulmonary disease overlap syndrome Chronic obstructive pulmonary disease, unspecified Start: 02-12-2022 End: 08-15-2023 Pesmoyqgsgz-Lvyselely-Plrded er (Trelegy Ellipta) 100-62.5-25 mcg blister with [...] 12, 2022 8:41am Start: 11-20-2021 End: 02-12-2022 Cbekulcjryb-Cvszojmym-Dmepep er (Trelegy Ellipta) 100-62.5-25 mcg blister with device Discontinued 1 NMA INHALATION DAILY 60 5 November 20, 2021 2:02pm February 12, 2022 9:41am Stage 3 severe COPD by GOLD classification Asthma-chronic obstructive pulmonary disease overlap syndrome Chronic obstructive pulmonary disease, unspecified Start: 11-20-2021 End: 02-12-2022 Sngdospaljn-Efgjngwtm-Mkmylv er (Trelegy Ellipta) 100-62.5-25 mcg blister with device Discontinued 1 INH INHALATION DAILY 60 November 20, 2021 1:02pm February 12, 2022 8:41am Start: 11-20-2021 Fluticasone-Um eclidin-Vilanter (Trelegy Ellipta) 100-62.5-25 mcg blister with device Active 1 INH INHALATION DAILY 60 November 20, 2021 2:02pm Start: 01-27-2021 End: 11-20-2021 Ozqcqbrslfv-Itetzlzji-Vtaklx er (Trelegy Ellipta) 100-62.5-25 mcg blister with device Discontinued 1 NMA INHALATION DAILY 60 5 January 27, 2021 3:12pm November 20, 2021 2:02pm Stage 3 severe COPD by GOLD classification Asthma-chronic obstructive pulmonary disease overlap syndrome Chronic obstructive pulmonary disease, unspecified Start: 01-27-2021 End: 11-20-2021 Klnakuajrgu-Gmftjqvlc-Lwdtnh er (Trelegy Ellipta) 100-62.5-25 mcg blister with device Discontinued 1 INH INHALATION DAILY 60 January 27, 2021 2:12pm November 20, 2021 1:02pm Start: 01-27-2021 End: 11-20-2021 Nnsuyokmipu-Ekdeayttb-Oivajh er (Trelegy Ellipta) 100-62.5-25 mcg blister with device Discontinued 1 INH INHALATION DAILY 60 January 27, 2021 3:12pm November 20, 2021 2:02pm Start: 01-04-2021 End: 01-27-2021 Ipizezxsprl-Lpupjklic-Aigdxf er (Trelegy Ellipta) 100-62.5-25 mcg blister with device Discontinued 1 NMA INHALATION DAILY 60 5 January 04, 2021 9:39am January 27, 2021 3:12pm Stage 3 severe COPD by GOLD classification Asthma-chronic obstructive pulmonary disease overlap syndrome Chronic obstructive pulmonary disease, unspecified Start: 01-04-2021 End: 01-27-2021 Xyqfxcrcqid-Dbefftdfz-Ktjkry er (Trelegy Ellipta) 100-62.5-25 mcg blister with device Discontinued 1 INH INHALATION DAILY 60 January 04, 2021 8:39am January 27, 2021 2:12pm Start: 01-04-2021 End: 01-27-2021 Inxfyvsplth-Bziewluoa-Hfvhun er (Trelegy Ellipta) 100-62.5-25 mcg blister with device Discontinued 1 INH INHALATION DAILY 60 January 04, 2021 9:39am January 27, 2021 3:12pm Start: 10-11-2020 End: 01-04-2021 Crsrkcycomt-Nxiayxgox-Dykbsm er (Trelegy Ellipta) 100-62.5-25 mcg blister with device Discontinued 1 NMA INHALATION DAILY 3 3 October 11, 2020 11:27am January 04, 2021 9:41am Chronic obstructive pulmonary disease, unspecified J44.9 COPD SLN 35.165348 Start: 10-11-2020 End: 01-04-2021 Krvozkeqssr-Jmwqkgsgx-Osipsq er (Trelegy Ellipta) 100-62.5-25 mcg blister with device Discontinued 1 INH INHALATION DAILY 3 October 11, 2020 10:27am January 04, 2021 8:41am J44.9 COPD SLN 35.943133 Start: 10-11-2020 End: 01-04-2021 Jjyhpvtmtql-Bckpyxibp-Ondwht er (Trelegy Ellipta) 100-62.5-25 mcg blister with device Discontinued 1 INH INHALATION DAILY 3 October 11, 2020 11:27am January 04, 2021 9:41am J44.9 COPD SLN 35.636493 Start: 07-19-2020 End: 10-11-2020 Dyruwephtbu-Bswmokslx-Gumlto er (Trelegy Ellipta) 100-62.5-25 mcg blister with device Discontinued 1 INH INHALATION DAILY 180 July 19, 2020 10:57am October 11, 2020 11:27am J44.9 COPD SLN 35.052939 Start: 07-19-2020 End: 10-11-2020 Kmwanambbii-Yygcepllo-Vwlogr er (Trelegy Ellipta) 100-62.5-25 mcg blister with device Discontinued 1 NMA INHALATION DAILY 180 July 19, 2020 1:00am October 11, 2020 11:27am Chronic obstructive pulmonary disease, unspecified J44.9 COPD SLN 35.065149 Start: 07-19-2020 End: 10-11-2020 Jpfiyhaaylw-Zxautgjih-Ucgadt er (Trelegy Ellipta) 100-62.5-25 mcg blister with device Discontinued 1 INH INHALATION DAILY 180 July 19, 2020 12:00am October 11, 2020 10:27am J44.9 COPD SLN 35.629770 Start: 07-12-2020 End: 10-11-2020 Rffqjcdzvsa-Pugrylrxe-Rygyfk er (Trelegy Ellipta) 100-62.5-25 mcg blister with device Discontinued 1 NMA INHALATION DAILY 60 3 July 12, 2020 11:47am October 11, 2020 11:12am Chronic obstructive pulmonary disease, unspecified J44.9 COPD SLN:35.405192 Start: 07-12-2020 End: 10-11-2020 Emzwcewdkhp-Yopbbomrb-Qkojcd er (Trelegy Ellipta) 100-62.5-25 mcg blister with device Discontinued 1 INH INHALATION DAILY 60 July 12, 2020 10:47am October 11, 2020 10:12am J44.9 COPD SLN:35.682827 Start: 07-12-2020 End: 10-11-2020 Cextkcbdztm-Qfhwtuaop-Zanipe er (Trelegy Ellipta) 100-62.5-25 mcg blister with device Discontinued 1 INH INHALATION DAILY 60 July 12, 2020 11:47am October 11, 2020 11:12am J44.9 COPD SLN:35.022967 Start: 04-13-2020 End: 07-12-2020 Qpigfzgfuaa-Qyqeoylcl-Hvlxsx er (Trelegy Ellipta) 100-62.5-25 mcg blister with device Discontinued 1 INH INHALATION DAILY 60 April 13, 2020 9:46am July 12, 2020 11:50am Start: 04-13-2020 End: 07-12-2020 Brxpucoycpk-Fguookfqk-Ixspam er (Trelegy Ellipta) 100-62.5-25 mcg blister with device Discontinued 1 NMA INHALATION DAILY 60 5 April 13, 2020 12:00am July 12, 2020 11:50am Start: 04-13-2020 End: 07-12-2020 Kuomzgmwpqg-Qfgqvrrfy-Jravag er (Trelegy Ellipta) 100-62.5-25 mcg blister with [...] on above: Take 1 capsule by mo [facility] as needed. aspirin 81 mg delayed [...] Screeningon 02-22-[address] Lung Screening [facility] Imaging Services [address] [place] [id number] Lung Screening MR#: [id number] Acct: [id number] Name: LAYNE VSAQUEZ Rep #: [id number] : 1950 M 74 From: Geronimo Alberts MD PCP: Dr. Richard Howard MD Status: [facility] Study: Low Dose CT Lung Screening Date of Exam: 02/22 Exam# [id number] Ordering Dr: Jeanine Cano WORKFORCE MANAGEMENT COORDINATOR WORKFORCE MANAGEMENT COORDINATOR-C PROCEDURE: LOW DOSE CT LUNG SCREENING 02/22/2025 REASON FOR EXAM: SMOKING TECHNIQUE: LOW DOSE CT LUNG SCREENING Coronal and Sagittal reconstruction series were provided. One or more dose reduction techniques were used (e.g., Automated exposure control, adjustment of the mA and/or kV according to patient size, use of iterative reconstruction technique). REFERENCE LINK: Grid Net Lung-RADS RADIATION DOSE SUMMARY: CTDlvol: 3 mGy [...] Category: 1 Other Significant Findings: Reading Location: [facility] CC: NAVARRO Cano; Dr. Richard Howard MD Veterinary Nurse: Signed Normal [facility] BNP,B-Type NATRIURETIC PEPTI Celina 09-09-2024 Natriuretic peptide B (Bld) [Mass/Vol] 13.0 pg/mL Normal 0-100 [facility] Comment on above: Performed By: #### L 503.6620, L500.4050, L300.8000, L501.9520, L100.0100, L506.1000 ####[facility] [address] [place], [address] CBC W/Diff, Automatedon Absolute Lymph 1.70 X10 3/uL Normal 0.83-4.51 [facility] Comment on above: Performed By: #### L 503.6620, L500.4050, L300.8000, L501.9520, L100.0100, L506.1000 ####[facility] [address] [place], [address] Absolute Neut 4.5 X10 3/uL Normal 2.0-7.7 [facility] Comment on above: Performed By: #### L 503.6620, L500.4050, L300.8000, L501.9520, L100.0100, L506.1000 ####[facility] [address] [place], [address] Basophils/100 WBC (Bld) 0.8 % Normal 0-1 [facility] Comment on above: Performed By: #### L 503.6620, L500.4050, L300.8000, L501.9520, L100.0100, L506.1000 ####[facility] [address] [place], [address] Eosinophils/100 WBC (Bld) 3.4 % Normal 0-5 [facility] Comment on above: Performed By: #### L 503.6620, L500.4050, L300.8000, L501.9520, L100.0100, L506.1000 ####[facility] [address] [place], [address] Erythrocyte distribution width (RBC) [Ratio] 14.1 % Normal 11.6-14.6 [facility] Comment on above: Performed By: #### L 503.6620, L500.4050, L300.8000, L501.9520, L100.0100, L506.1000 ####[facility] [address] [place], [address] Hematocrit (Bld) [Volume fraction] 41.5 % Normal 40-54 [facility] Comment on above: Performed By: #### L 503.6620, L500.4050, L300.8000, L501.9520, L100.0100, L506.1000 ####[facility] [address] [place], [address] Hemoglobin (Bld) [Mass/Vol] 13.8 g/dL Normal 13.0-16.5 [facility] Comment on above: Performed By: #### L 503.6620, L500.4050, L300.8000, L501.9520, L100.0100, L506.1000 ####[facility] [address] [place], [address] IG% 0.300 Normal 0.0-0.9 [facility] Comment on above: Result Comment: IG% - Immature Granulocytes (promyelocytes, myelocytes and metamyelocytes) > 1% indicates that a LEFT SHIFT is Present. Performed By: #### L 503.6620, L500.4050, L300.8000, L501.9520, L100.0100, L506.1000 ####[facility] [address] [place], [address] Lymphocytes/100 WBC (Bld) 23.3 % Normal 19-41 [facility] Comment on above: Performed By: #### L 503.6620, L500.4050, L300.8000, L501.9520, L100.0100, L506.1000 ####[facility] [address] [place], [address] MCH (RBC) [Entitic mass] 31.2 pg Normal 27.0-32.0 [facility] Comment on above: Performed By: #### L 503.6620, L500.4050, L300.8000, L501.9520, L100.0100, L506.1000 ####[facility] [address] [place], [address] MCHC (RBC) [Mass/Vol] 33.3 g/dL Normal 32-36 [facility] Comment on above: Performed By: #### L 503.6620, L500.4050, L300.8000, L501.9520, L100.0100, L506.1000 ####[facility] [address] [place], [address] MCV (RBC) [Entitic vol] 93.7 fL Normal 80-94 [facility] Comment on above: Performed By: #### L 503.6620, L500.4050, L300.8000, L501.9520, L100.0100, L506.1000 ####[facility] [address] [place], [address] Monocytes/100 WBC (Bld) 10.8 % High 0-10 [facility] Comment on above: Performed By: #### L 503.6620, L500.4050, L300.8000, L501.9520, L100.0100, L506.1000 ####[facility] [address] [place], [address] Neutrophils/100 WBC (Bld) 61.4 % Normal 47-70 [facility] Comment on above: Performed By: #### L 503.6620, L500.4050, L300.8000, L501.9520, L100.0100, L506.1000 ####[facility] [address] [place], [address] Nucleated RBC (Bld) [#/Vol] 0 10*3/uL Normal 0-5 [facility] Comment on above: Performed By: #### L 503.6620, L500.4050, L300.8000, L501.9520, L100.0100, L506.1000 ####[facility] [address] [place], [address] Platelet mean volume (Bld) [Entitic vol] 9.9 fL Normal 6.2-12.0 [facility] Comment on above: Performed By: #### L 503.6620, L500.4050, L300.8000, L501.9520, L100.0100, L506.1000 ####[facility] [address] [place], [address] Platelets (Bld) [#/Vol] 297 10*3/uL Normal 150-450 [facility] Comment on above: Performed By: #### L 503.6620, L500.4050, L300.8000, L501.9520, L100.0100, L506.1000 ####[facility] [address] [place], [address] RBC (Bld) [#/Vol] 4.43 10*6/uL Low 4.6-6.2 [facility] Comment on above: Performed By: #### L 503.6620, L500.4050, L300.8000, L501.9520, L100.0100, L506.1000 ####[facility] [address] [place], [address] RDW SD 48.4 fl High 35.1-43.9 [facility] Comment on above: Performed By: #### L 503.6620, L500.4050, L300.8000, L501.9520, L100.0100, L506.1000 ####[facility] [address] [place], [address] WBC (Bld) [#/Vol] 7.3 10*3/uL Normal 4.4-11.0 [facility] Comment on above: Performed By: #### L 503.6620, L500.4050, L300.8000, L501.9520, L100.0100, L506.1000 ####[facility] [address] [place], [address] CTA Chest W/WO Contraston CTA Chest W/WO Contrast [facility] Imaging Services [address] [place] [address] CTA Chest W/WO Contrast MR#: [id number] Acct: [id number] Name: LAYNE VASQUEZ Rep #: [id number] : 1950 M 74 From: Ravindra zavala MD PCP: Dr. Richard Howard MD Status: REG CLI Study: CTA Chest W/WO Contrast Date of Exam: 09/09/24 Exam# [id number] Ordering Dr: Richard Howard MD PROCEDURE: CTA [...] use of iterative reconstruction technique). Reading Location: [place] [address] CC: Dr. Richard Howard MD Veterinary Nurse: Signed Normal [facility] Comprehensive Metabolic Prof ilon 09-09-2024 Albumin [Mass/Vol] 3.6 g/dL Normal 3.2-5.0 [facility] Comment on above: Performed By: #### L 503.6620, L500.4050, L300.8000, L501.9520, L100.0100, L506.1000 ####[facility] [address] [place], [address] Albumin/Globulin [Mass ratio] 0.9 {ratio} Normal 0.9-2.4 [facility] Comment on above: Performed By: #### L 503.6620, L500.4050, L300.8000, L501.9520, L100.0100, L506.1000 ####[facility] [address] [place], [address] ALK P 51 U/L Normal 45-117 [facility] Comment on above: Performed By: #### L 503.6620, L500.4050, L300.8000, L501.9520, L100.0100, L506.1000 ####[facility] [address] [place], [address] ALT [Catalytic activity/Vol] 18 U/L Normal 16-61 [facility] Comment on above: Performed By: #### L 503.6620, L500.4050, L300.8000, L501.9520, L100.0100, L506.1000 ####[facility] [address] [place], [address] AST [Catalytic activity/Vol] 19 U/L Normal 15-37 [facility] Comment on above: Performed By: #### L 503.6620, L500.4050, L300.8000, L501.9520, L100.0100, L506.1000 ####[facility] [address] [place], [address] Bilirubin [Mass/Vol] 0.60 mg/dL Normal 0.20-1.00 [facility] Comment on above: Result Comment: For patients on eltrombopag therapy, use of Dimension Goff TBIL is not recommended. Performed By: #### L 503.6620, L500.4050, L300.8000, L501.9520, L100.0100, L506.1000 ####[facility] [address] [place], [address] BUN/CRE 16.4 RATIO Normal 10-20 [facility] Comment on above: Performed By: #### L 503.6620, L500.4050, L300.8000, L501.9520, L100.0100, L506.1000 ####[facility] [address] [place], [address] CA,Total 9.0 mg/dL Normal 8.5-10.1 [facility] Comment on above: Performed By: #### L 503.6620, L500.4050, L300.8000, L501.9520, L100.0100, L506.1000 ####[facility] [address] [place], [address] Chloride [Moles/Vol] 104 mmol/L Normal 98-107 [facility] Comment on above: Performed By: #### L 503.6620, L500.4050, L300.8000, L501.9520, L100.0100, L506.1000 ####[facility] [address] [place], [address] CO2 [Moles/Vol] 29.0 mmol/L Normal 21.0-32.0 [facility] Comment on above: Performed By: #### L 503.6620, L500.4050, L300.8000, L501.9520, L100.0100, L506.1000 ####[facility] [address] [place], [address] Creatinine [Mass/Vol] 1.22 mg/dL Normal 0.70-1.30 [facility] Comment on above: Result Comment: The validity of the calculated GFR GFRAA in patients over 70 years has not been determined. Clinical correlation is essential. Performed By: #### L 503.6620, L500.4050, L300.8000, L501.9520, L100.0100, L506.1000 ####[facility] [address] [place], [address] EST GFR - AA 75 mL/min Normal >60 [facility] Comment on above: Result Comment: Afri can Ugandan GFR Calc Performed By: #### L 503.6620, L500.4050, L300.8000, L501.9520, L100.0100, L506.1000 ####[facility] [address] [place], [address] GAP 5 Normal 5-15 [facility] Comment on above: Performed By: #### L 503.6620, L500.4050, L300.8000, L501.9520, L100.0100, L506.1000 ####[facility] [address] [place], [address] GFR/1.73 sq M.predicted among non-blacks MDRD (S/P/Bld) [Vol rate/Area] 62 mL/min/{1.73_m2} Normal >60 [facility] Comment on above: Result Comment: Non- GFR Calc Performed By: #### L 503.6620, L500.4050, L300.8000, L501.9520, L100.0100, L506.1000 ####[facility] [address] [place], [address] Globulin (S) [Mass/Vol] 4.2 g/dL Normal 2.2-4.2 [facility] Comment on above: Performed By: #### L 503.6620, L500.4050, L300.8000, L501.9520, L100.0100, L506.1000 ####[facility] [address] [place], [address] Glucose [Mass/Vol] 99 mg/dL Normal 74-106 [facility] Comment on above: Performed By: #### L 503.6620, L500.4050, L300.8000, L501.9520, L100.0100, L506.1000 ####[facility] [address] [place], [address] Potassium [Moles/Vol] 4.8 mmol/L Normal 3.5-5.1 [facility] Comment on above: Performed By: #### L 503.6620, L500.4050, L300.8000, L501.9520, L100.0100, L506.1000 ####[facility] [address] [place], [address] Sodium [Moles/Vol] 139 mmol/L Normal 136-145 [facility] Comment on above: Performed By: #### L 503.6620, L500.4050, L300.8000, L501.9520, L100.0100, L506.1000 ####[facility] [address] [place], [address] T PROT 7.8 g/dL Normal 6.4-8.2 [facility] Comment on above: Performed By: #### L 503.6620, L500.4050, L300.8000, L501.9520, L100.0100, L506.1000 ####[facility] [address] [place], [address] Urea nitrogen [Mass/Vol] 20 mg/dL High 7-18 [facility] Comment on above: Performed By: #### L 503.6620, L500.4050, L300.8000, L501.9520, L100.0100, L506.1000 ####[facility] [address] [place], [address] D-Dimer Quantitative (DVT/PE )on 09-09-2024 D-DIMER QUANT 0.86 FEU/ug/m Invalid Interpretation Code 0.27-0.49 [facility] Comment on above: Result Comment: D-Di bernie ELEVATED (>0.49): Additional studies and clinical assessments are indicated to conclude diagnosis of: Deep Vein Thrombosis (DVT) or Pulmonary Embolism (PE) Performed By: #### L 503.6620, L500.4050, L300.8000, L501.9520, L100.0100, L506.1000 ####[facility] [address] [place], [address] Thyroid Stim Hormone (TSH)on 02-05-2025 TSH 1.200 uIU/mL Normal 0.358-3.740 [facility] Comment on above: Performed By: #### L 503.6620, L500.4050, L300.8000, L501.9520, L100.0100, L506.1000 ####[facility] [address] [place], [address] Vitamin D,25 Hydroxyon 09-09 Vitamin D 25-OH 18.8 ng/mL Normal [facility] Comment on above: Result Comment: Pooja min D 25(OH) Status Range Deficiency <20 ng/mL (50nmol/L) Insufficiency 20 - 30 ng/mL (50 - 75 nmol/L) Sufficiency 30 - 100 ng/mL (75 - 250 nmol/L) Toxicity >100 ng/mL (>250 nmol/L) Performed By: #### L 503.6620, L500.4050, L300.8000, L501.9520, L100.0100, L506.1000 ####[facility] [address] [place], [address] 12 Lead EKGon 08-06-2024 12 Lead EKG [facility] [address] [place] [address] 12 Lead EKG 08/06/24 0738 MR#: [id number] Acct: [id number] Name: LAYNE VASQUEZ Rep #: [id number] : 1950 74 From: Chris De La Cruz MD Attending Dr: Dr. Richard Howard MD Status: REG CLI Ordering Dr: Richard Howard MD Date: 08/06/24 Location: [facility] Sex: M AA Admitted: [...] atrial complexes Otherwise normal ECG Confirmed by DOORTHY BARRIOS, CHRIS ([id number]), field map editor LASHAE SINGLETON ([id number]) on 08/06/2024 9:11:39 AM Referred By: Richard Howard Confirmed By: CHRIS DE LA CRUZ MD 08/06/24 0911 Date Chris De La Cruz MD CC: Dr. Richard Howard MD Signed Normal [facility] Echo Completeon 08-06-2024 Echo Complete [facility] [address] [place] [address] Echo Complete 08/06/24 0851 MR#: [id number] Acct: [id number] Name: LAYNE VASQUEZ Rep #: [id number] : 1950 74 From: Chris De La Cruz MD Attending Dr: Dr. Richard Howard MD Status: REG CLI Ordering Dr: Richard Howard MD Date: 08/06/24 Location: [facility] Sex: M AA Admitted: [...] Date Dictated: 08/06/24 0851 Date Transcribed: 08/06/24941 Veterinary Nurse: Signed Normal [facility] Stress Reporton 08-06-2024 Stress Report [facility] [place] [address] MR#: [id number] Acct: [id number] Name: LAYNE VASQUEZ Rep #: [id number] : 1950 74 From: Chris De La [...] MD Date Dictated: 08/06/24958 Date Transcribed: 08/06/24958 Veterinary Nurse: [place] Signed Normal [facility] Myoglobin, Serumon 4 Myoglobin, Ser 29 ng/mL Normal 28-72 [facility] Comment on above: Result Comment: Perf ormed at: CB - [facility] [address] [id number] Staple Laster: Pavan Zhu PhD, Phone: [phone] Performed By: #### L 3600.5100, L501.4020, L100.0100, L501.5200, L500.2500, L501.3620, L501.2300 ####[facility] [address] [place], [address] Basic Metabolic Profile (BMP )on 07-17-2024 BUN/CRE 12.6 RATIO Normal 10-20 [facility] Comment on above: Order Comment: 1 Performed By: #### L 3600.5100, L501.4020, L100.0100, L501.5200, L500.2500, L501.3620, L501.2300 ####[facility] [address] [place], [place], [phone] CA,Total 9.7 mg/dL Normal 8.5-10.1 [facility] Comment on above: Order Comment: 1 Performed By: #### L 3600.5100, L501.4020, L100.0100, L501.5200, L500.2500, L501.3620, L501.2300 ####[facility] [address] [place], [address] Chloride [Moles/Vol] 105 mmol/L Normal 98-107 [facility] Comment on above: Order Comment: 1 Performed By: #### L 3600.5100, L501.4020, L100.0100, L501.5200, L500.2500, L501.3620, L501.2300 ####[facility] [address] [place], [address] CO2 [Moles/Vol] 31.0 mmol/L Normal 21.0-32.0 [facility] Comment on above: Order Comment: 1 Performed By: #### L 3600.5100, L501.4020, L100.0100, L501.5200, L500.2500, L501.3620, L501.2300 ####[facility] [address] [place], [address] Creatinine [Mass/Vol] 1.27 mg/dL Normal 0.70-1.30 [facility] Comment on above: Order Comment: 1 Result Comment: The validity of the calculated GFR GFRAA in patients over 70 years has not been determined. Clinical correlation is essential. Performed By: #### L 3600.5100, L501.4020, L100.0100, L501.5200, L500.2500, L501.3620, L501.2300 ####[facility] [address] [place], [address] EST GFR - AA 72 mL/min Normal >60 [facility] Comment on above: Order Comment: 1 Result Comment: Afri can Ugandan GFR Calc Performed By: #### L 3600.5100, L501.4020, L100.0100, L501.5200, L500.2500, L501.3620, L501.2300 ####[facility] [address] [place], [address] GAP 3 Low 5-15 [facility] Comment on above: Order Comment: 1 Performed By: #### L 3600.5100, L501.4020, L100.0100, L501.5200, L500.2500, L501.3620, L501.2300 ####[facility] [address] [place], [address] GFR/1.73 sq M.predicted among non-blacks MDRD (S/P/Bld) [Vol rate/Area] 59 mL/min/{1.73_m2} Low >60 [facility] Comment on above: Order Comment: 1 Result Comment: Non- GFR Calc Performed By: #### L 3600.5100, L501.4020, L100.0100, L501.5200, L500.2500, L501.3620, L501.2300 ####[facility] [address] [place], [address] Glucose [Mass/Vol] 101 mg/dL Normal 74-106 [facility] Comment on above: Order Comment: 1 Result Comment: Fast ing Glucose result from 100 to 125 mg/dL suggests IMPAIRED HOMEOSTASIS per A.D.A. criteria. Performed By: #### L 3600.5100, L501.4020, L100.0100, L501.5200, L500.2500, L501.3620, L501.2300 ####[facility] [address] [place], [address] Potassium [Moles/Vol] 4.3 mmol/L Normal 3.5-5.1 [facility] Comment on above: Order Comment: 1 Performed By: #### L 3600.5100, L501.4020, L100.0100, L501.5200, L500.2500, L501.3620, L501.2300 ####[facility] [address] [place], [address] Sodium [Moles/Vol] 139 mmol/L Normal 136-145 [facility] Comment on above: Order Comment: 1 Performed By: #### L 3600.5100, L501.4020, L100.0100, L501.5200, L500.2500, L501.3620, L501.2300 ####[facility] [address] [place], [address] Urea nitrogen [Mass/Vol] 16 mg/dL Normal 7-18 [facility] Comment on above: Order Comment: 1 Performed By: #### L 3600.5100, L501.4020, L100.0100, L501.5200, L500.2500, L501.3620, L501.2300 ####[facility] [address] [place], [address] CBC W/Diff, Automatedon 12-2023 Absolute Lymph 1.76 X10 3/uL Normal 0.83-4.51 [facility] Comment on above: Performed By: #### L 3600.5100, L501.4020, L100.0100, L501.5200, L500.2500, L501.3620, L501.2300 ####[facility] [address] [place], [address] Absolute Neut 4.8 X10 3/uL Normal 2.0-7.7 [facility] Comment on above: Performed By: #### L 3600.5100, L501.4020, L100.0100, L501.5200, L500.2500, L501.3620, L501.2300 ####[facility] [address] [place], [address] Basophils/100 WBC (Bld) 1.0 % Normal 0-1 [facility] Comment on above: Performed By: #### L 3600.5100, L501.4020, L100.0100, L501.5200, L500.2500, L501.3620, L501.2300 ####[facility] [address] [place], [address] Eosinophils/100 WBC (Bld) 2.8 % Normal 0-5 [facility] Comment on above: Performed By: #### L 3600.5100, L501.4020, L100.0100, L501.5200, L500.2500, L501.3620, L501.2300 ####[facility] [address] [place], [address] Erythrocyte distribution width (RBC) [Ratio] 13.2 % Normal 11.6-14.6 [facility] Comment on above: Performed By: #### L 3600.5100, L501.4020, L100.0100, L501.5200, L500.2500, L501.3620, L501.2300 ####[facility] [address] [place], [address] Hematocrit (Bld) [Volume fraction] 44.1 % Normal 40-54 [facility] Comment on above: Performed By: #### L 3600.5100, L501.4020, L100.0100, L501.5200, L500.2500, L501.3620, L501.2300 ####[facility] [address] [place], [address] Hemoglobin (Bld) [Mass/Vol] 14.4 g/dL Normal 13.0-16.5 [facility] Comment on above: Performed By: #### L 3600.5100, L501.4020, L100.0100, L501.5200, L500.2500, L501.3620, L501.2300 ####[facility] [address] [place], [address] IG% 0.400 Normal 0.0-0.9 [facility] Comment on above: Result Comment: IG% - Immature Granulocytes (promyelocytes, myelocytes and metamyelocytes) > 1% indicates that a LEFT SHIFT is Present. Performed By: #### L 3600.5100, L501.4020, L100.0100, L501.5200, L500.2500, L501.3620, L501.2300 ####[facility] [address] [place], [address] Lymphocytes/100 WBC (Bld) 22.8 % Normal 19-41 [facility] Comment on above: Performed By: #### L 3600.5100, L501.4020, L100.0100, L501.5200, L500.2500, L501.3620, L501.2300 ####[facility] [address] [place], [address] MCH (RBC) [Entitic mass] 31.3 pg Normal 27.0-32.0 [facility] Comment on above: Performed By: #### L 3600.5100, L501.4020, L100.0100, L501.5200, L500.2500, L501.3620, L501.2300 ####[facility] [address] [place], [address] MCHC (RBC) [Mass/Vol] 32.7 g/dL Normal 32-36 [facility] Comment on above: Performed By: #### L 3600.5100, L501.4020, L100.0100, L501.5200, L500.2500, L501.3620, L501.2300 ####[facility] [address] [place], [address] MCV (RBC) [Entitic vol] 95.9 fL High 80-94 [facility] Comment on above: Performed By: #### L 3600.5100, L501.4020, L100.0100, L501.5200, L500.2500, L501.3620, L501.2300 ####[facility] [address] [place], [address] Monocytes/100 WBC (Bld) 10.8 % High 0-10 [facility] Comment on above: Performed By: #### L 3600.5100, L501.4020, L100.0100, L501.5200, L500.2500, L501.3620, L501.2300 ####[facility] [address] [place], [address] Neutrophils/100 WBC (Bld) 62.2 % Normal 47-70 [facility] Comment on above: Performed By: #### L 3600.5100, L501.4020, L100.0100, L501.5200, L500.2500, L501.3620, L501.2300 ####[facility] [address] [place], [address] Nucleated RBC (Bld) [#/Vol] 0 10*3/uL Normal 0-5 [facility] Comment on above: Performed By: #### L 3600.5100, L501.4020, L100.0100, L501.5200, L500.2500, L501.3620, L501.2300 ####[facility] [address] [place], [address] Platelet mean volume (Bld) [Entitic vol] 9.9 fL Normal 6.2-12.0 [facility] Comment on above: Performed By: #### L 3600.5100, L501.4020, L100.0100, L501.5200, L500.2500, L501.3620, L501.2300 ####[facility] [address] [place], [address] Platelets (Bld) [#/Vol] 329 10*3/uL Normal 150-450 [facility] Comment on above: Performed By: #### L 3600.5100, L501.4020, L100.0100, L501.5200, L500.2500, L501.3620, L501.2300 ####[facility] [address] [place], [address] RBC (Bld) [#/Vol] 4.60 10*6/uL Normal 4.6-6.2 [facility] Comment on above: Performed By: #### L 3600.5100, L501.4020, L100.0100, L501.5200, L500.2500, L501.3620, L501.2300 ####[facility] [address] [place], [address] RDW SD 46.5 fl High 35.1-43.9 [facility] Comment on above: Performed By: #### L 3600.5100, L501.4020, L100.0100, L501.5200, L500.2500, L501.3620, L501.2300 ####[facility] [address] [place], [address] WBC (Bld) [#/Vol] 7.7 10*3/uL Normal 4.4-11.0 [facility] Comment on above: Performed By: #### L 3600.5100, L501.4020, L100.0100, L501.5200, L500.2500, L501.3620, L501.2300 ####[facility] [address] [place], [address] CPK Total, Creatine Kinaseon 07-17-2024 CPK TOTAL 48 U/L Normal 39-308 [facility] Comment on above: Order Comment: 1 Performed By: #### L 3600.5100, L501.4020, L100.0100, L501.5200, L500.2500, L501.3620, L501.2300 ####[facility] [address] [place], [address] L501.4020on 07-17-2024 TROPONIN-I HS 11 pg/mL Normal 3.0-78.0 [facility] Comment on above: Order Comment: 1 Result Comment: Pleelena arellano Note: New Test Units and Gender Specific Reference Ranges. For more information see Policy Stat Procedure Goff High Sensitivity Troponin (TNIH) and attachments. Performed By: #### L 3600.5100, L501.4020, L100.0100, L501.5200, L500.2500, L501.3620, L501.2300 ####[facility] [address] [place], [address] Magnesiumon 07-17-2024 Magnesium [Mass/Vol] 2.7 mg/dL High 1.6-2.6 [facility] Comment on above: Order Comment: 1 Performed By: #### L 3600.5100, L501.4020, L100.0100, L501.5200, L500.2500, L501.3620, L501.2300 ####[facility] [address] [place], [address] Phosphoruson 07-17-2024 Phosphate [Mass/Vol] 3.2 mg/dL Normal 2.5-4.9 [facility] Comment on above: Order Comment: 1 Performed By: #### L 3600.5100, L501.4020, L100.0100, L501.5200, L500.2500, L501.3620, L501.2300 ####[facility] [address] [place], [address] Basic Metabolic Profile (BMP )on 06-15-2024 BUN/CRE 16.4 RATIO Normal 10-20 [facility] Comment on above: Performed By: #### L 500.2500 ####[facility] [address] [place], [address] CA,Total 9.1 mg/dL Normal 8.5-10.1 [facility] Comment on above: Performed By: #### L 500.2500 ####[facility] [address] [place], [address] Chloride [Moles/Vol] 104 mmol/L Normal 98-107 [facility] Comment on above: Performed By: #### L 500.2500 ####[facility] [address] [place], [address] CO2 [Moles/Vol] 32.0 mmol/L Normal 21.0-32.0 [facility] Comment on above: Performed By: #### L 500.2500 ####[facility] [address] [place], [address] Creatinine [Mass/Vol] 1.28 mg/dL Normal 0.70-1.30 [facility] Comment on above: Result Comment: The validity of the calculated GFR GFRAA in patients over 70 years has not been determined. Clinical correlation is essential. Performed By: #### L 500.2500 ####[facility] [address] [place], [address] EST GFR - AA 71 mL/min Normal >60 [facility] Comment on above: Result Comment: Afri can Ugandan GFR Calc Performed By: #### L 500.2500 ####[facility] [address] [place], [address] GAP 4 Low 5-15 [facility] Comment on above: Performed By: #### L 500.2500 ####[facility] [address] [place], [address] GFR/1.73 sq M.predicted among non-blacks MDRD (S/P/Bld) [Vol rate/Area] 59 mL/min/{1.73_m2} Low >60 [facility] Comment on above: Result Comment: Non- GFR Calc Performed By: #### L 500.2500 ####[facility] [address] [place], [address] Glucose [Mass/Vol] 115 mg/dL High 74-106 [facility] Comment on above: Result Comment: Fast ing Glucose result from 100 to 125 mg/dL suggests IMPAIRED HOMEOSTASIS per A.D.A. criteria. Performed By: #### L 500.2500 ####[facility] [address] [place], [address] Potassium [Moles/Vol] 3.9 mmol/L Normal 3.5-5.1 [facility] Comment on above: Performed By: #### L 500.2500 ####[facility] [address] [place], [address] Sodium [Moles/Vol] 140 mmol/L Normal 136-145 [facility] Comment on above: Performed By: #### L 500.2500 ####[facility] [address] [place], [address] Urea nitrogen [Mass/Vol] 21 mg/dL High 7-18 [facility] Comment on above: Performed By: #### L 500.2500 ####[facility] [address] [place], [address] CBC W/Diff, Automatedon 11-0 5-2023 Absolute Lymph 2.27 X10 3/uL Normal 0.83-4.51 [facility] Comment on above: Performed By: #### L 3890.6300, L100.0100, L500.4100, L501.9520, L506.1000, L500.4050 #### [facility] Laboratory [address] [place], [address] Absolute Neut 4.6 X10 3/uL Normal 2.0-7.7 [facility] Comment on above: Performed By: #### L 3890.6300, L100.0100, L500.4100, L501.9520, L506.1000, L500.4050 #### [facility] [address] [place], [address] Basophils/100 WBC (Bld) 1.1 % High 0-1 [facility] Comment on above: Performed By: #### L 3890.6300, L100.0100, L500.4100, L501.9520, L506.1000, L500.4050 #### [facility] [address] [place], [address] Eosinophils/100 WBC (Bld) 3.8 % Normal 0-5 [facility] Comment on above: Performed By: #### L 3890.6300, L100.0100, L500.4100, L501.9520, L506.1000, L500.4050 #### [facility] [address] [place], [address] Erythrocyte distribution width (RBC) [Ratio] 13.9 % Normal 11.6-14.6 [facility] Comment on above: Performed By: #### L 3890.6300, L100.0100, L500.4100, L501.9520, L506.1000, L500.4050 #### [facility] [address] [place], [address] Hematocrit (Bld) [Volume fraction] 43.9 % Normal 40-54 [facility] Comment on above: Performed By: #### L 3890.6300, L100.0100, L500.4100, L501.9520, L506.1000, L500.4050 #### [facility] [address] [facility] [place], [address] Hemoglobin (Bld) [Mass/Vol] 14.2 g/dL Normal 13.0-16.5 [facility] Comment on above: Performed By: #### L 3890.6300, L100.0100, L500.4100, L501.9520, L506.1000, L500.4050 #### [facility] [address] [place], [address] IG% 0.200 Normal 0.0-0.9 [facility] Comment on above: Result Comment: IG% - Immature Granulocytes (promyelocytes, myelocytes and metamyelocytes) > 1% indicates that a LEFT SHIFT is Present. Performed By: #### L 3890.6300, L100.0100, L500.4100, L501.9520, L506.1000, L500.4050 #### [facility] [address] [place], [address] Lymphocytes/100 WBC (Bld) 27.8 % Normal 19-41 [facility] Comment on above: Performed By: #### L 3890.6300, L100.0100, L500.4100, L501.9520, L506.1000, L500.4050 #### [facility] [address] [place], [address] MCH (RBC) [Entitic mass] 30.6 pg Normal 27.0-32.0 [facility] Comment on above: Performed By: #### L 3890.6300, L100.0100, L500.4100, L501.9520, L506.1000, L500.4050 #### [facility] [address] [place], [address] MCHC (RBC) [Mass/Vol] 32.3 g/dL Normal 32-36 [facility] Comment on above: Performed By: #### L 3890.6300, L100.0100, L500.4100, L501.9520, L506.1000, L500.4050 #### [facility] [address] [place], [address] MCV (RBC) [Entitic vol] 94.6 fL High 80-94 [facility] Comment on above: Performed By: #### L 3890.6300, L100.0100, L500.4100, L501.9520, L506.1000, L500.4050 #### [facility] [address] [place], [address] Monocytes/100 WBC (Bld) 10.3 % High 0-10 [facility] Comment on above: Performed By: #### L 3890.6300, L100.0100, L500.4100, L501.9520, L506.1000, L500.4050 #### [facility] [address] [place], [address] Neutrophils/100 WBC (Bld) 56.8 % Normal 47-70 [facility] Comment on above: Performed By: #### L 3890.6300, L100.0100, L500.4100, L501.9520, L506.1000, L500.4050 #### [facility] [address] [place], [address] Nucleated RBC (Bld) [#/Vol] 0 10*3/uL Normal 0-5 [facility] Comment on above: Performed By: #### L 3890.6300, L100.0100, L500.4100, L501.9520, L506.1000, L500.4050 #### [facility] [address] [place], [address] Platelet mean volume (Bld) [Entitic vol] 9.9 fL Normal 6.2-12.0 [facility] Comment on above: Performed By: #### L 3890.6300, L100.0100, L500.4100, L501.9520, L506.1000, L500.4050 #### [facility] [address] [place], [address] Platelets (Bld) [#/Vol] 292 10*3/uL Normal 150-450 [facility] Comment on above: Performed By: #### L 3890.6300, L100.0100, L500.4100, L501.9520, L506.1000, L500.4050 #### [facility] [address] [place], [address] RBC (Bld) [#/Vol] 4.64 10*6/uL Normal 4.6-6.2 [facility] Comment on above: Performed By: #### L 3890.6300, L100.0100, L500.4100, L501.9520, L506.1000, L500.4050 #### [facility] [address] [place], [address] RDW SD 48.8 fl High 35.1-43.9 [facility] Comment on above: Performed By: #### L 3890.6300, L100.0100, L500.4100, L501.9520, L506.1000, L500.4050 #### [facility] [address] [place], [address] WBC (Bld) [#/Vol] 8.2 10*3/uL Normal 4.4-11.0 [facility] Comment on above: Performed By: #### L 3890.6300, L100.0100, L500.4100, L501.9520, L506.1000, L500.4050 #### [facility] [address] [place], [address] Comprehensive Metabolic Prof ilon 06-09-2024 Albumin [Mass/Vol] 4.0 g/dL Normal 3.2-5.0 [facility] Comment on above: Performed By: #### L 3890.6300, L100.0100, L500.4100, L501.9520, L506.1000, L500.4050 #### [facility] [address] [place], [address] Albumin/Globulin [Mass ratio] 1.1 {ratio} Normal 0.9-2.4 [facility] Comment on above: Performed By: #### L 3890.6300, L100.0100, L500.4100, L501.9520, L506.1000, L500.4050 #### [facility] [address] [place], [address] ALK P 55 U/L Normal 45-117 [facility] Comment on above: Performed By: #### L 3890.6300, L100.0100, L500.4100, L501.9520, L506.1000, L500.4050 #### [facility] [address] [place], [address] ALT [Catalytic activity/Vol] 18 U/L Normal 16-61 [facility] Comment on above: Performed By: #### L 3890.6300, L100.0100, L500.4100, L501.9520, L506.1000, L500.4050 #### [facility] [address] [place], [address] AST [Catalytic activity/Vol] 19 U/L Normal 15-37 [facility] Comment on above: Performed By: #### L 3890.6300, L100.0100, L500.4100, L501.9520, L506.1000, L500.4050 #### [facility] [facility] [address] [place], [address] Bilirubin [Mass/Vol] 0.60 mg/dL Normal 0.20-1.00 [facility] Comment on above: Result Comment: For patients on eltrombopag therapy, use of Dimension Goff TBIL is not recommended. Performed By: #### L 3890.6300, L100.0100, L500.4100, L501.9520, L506.1000, L500.4050 #### [facility] [address] [place], [address] BUN/CRE 17.1 RATIO Normal 10-20 [facility] Comment on above: Performed By: #### L 3890.6300, L100.0100, L500.4100, L501.9520, L506.1000, L500.4050 #### [facility] [address] [place], [address] CA,Total 9.2 mg/dL Normal 8.5-10.1 [facility] Comment on above: Performed By: #### L 3890.6300, L100.0100, L500.4100, L501.9520, L506.1000, L500.4050 #### [facility] [address] [place], [address] Chloride [Moles/Vol] 102 mmol/L Normal 98-107 [facility] Comment on above: Performed By: #### L 3890.6300, L100.0100, L500.4100, L501.9520, L506.1000, L500.4050 #### [facility] [address] [place], [address] CO2 [Moles/Vol] 30.0 mmol/L Normal 21.0-32.0 [facility] Comment on above: Performed By: #### L 3890.6300, L100.0100, L500.4100, L501.9520, L506.1000, L500.4050 #### [facility] [address] [place], [address] Creatinine [Mass/Vol] 1.29 mg/dL Normal 0.70-1.30 [facility] Comment on above: Result Comment: The validity of the calculated GFR GFRAA in patients over 70 years has not been determined. Clinical correlation is essential. Performed By: #### L 3890.6300, L100.0100, L500.4100, L501.9520, L506.1000, L500.4050 #### [facility] [address] [place], [address] EST GFR - AA 70 mL/min Normal >60 [facility] Comment on above: Result Comment: Afri can Ugandan GFR Calc Performed By: #### L 3890.6300, L100.0100, L500.4100, L501.9520, L506.1000, L500.4050 #### [facility] [address] [place], [address] GAP 4 Low 5-15 [facility] Comment on above: Performed By: #### L 3890.6300, L100.0100, L500.4100, L501.9520, L506.1000, L500.4050 #### [facility] [address] [place], [address] GFR/1.73 sq M.predicted among non-blacks MDRD (S/P/Bld) [Vol rate/Area] 58 mL/min/{1.73_m2} Low >60 [facility] Comment on above: Result Comment: Non- GFR Calc Performed By: #### L 3890.6300, L100.0100, L500.4100, L501.9520, L506.1000, L500.4050 #### [facility] [address] [place], [address] Globulin (S) [Mass/Vol] 3.7 g/dL Normal 2.2-4.2 [facility] Comment on above: Performed By: #### L 3890.6300, L100.0100, L500.4100, L501.9520, L506.1000, L500.4050 #### [facility] [address] [place], [address] Glucose [Mass/Vol] 96 mg/dL Normal 74-106 [facility] Comment on above: Performed By: #### L 3890.6300, L100.0100, L500.4100, L501.9520, L506.1000, L500.4050 #### [facility] [address] [place], [address] Potassium [Moles/Vol] 5.2 mmol/L High 3.5-5.1 [facility] Comment on above: Performed By: #### L 3890.6300, L100.0100, L500.4100, L501.9520, L506.1000, L500.4050 #### [facility] [address] [place], [address] Sodium [Moles/Vol] 137 mmol/L Normal 136-145 [facility] Comment on above: Performed By: #### L 3890.6300, L100.0100, L500.4100, L501.9520, L506.1000, L500.4050 #### [facility] [address] [place], [address] T PROT 7.7 g/dL Normal 6.4-8.2 [facility] Comment on above: Performed By: #### L 3890.6300, L100.0100, L500.4100, L501.9520, L506.1000, L500.4050 #### [facility] [address] [place], [address] Urea nitrogen [Mass/Vol] 22 mg/dL High 7-18 [facility] Comment on above: Performed By: #### L 3890.6300, L100.0100, L500.4100, L501.9520, L506.1000, L500.4050 #### [facility] [address] [place], [address] Hepatitis C Antibodyon 06-09 Hepatitis C AB Non-Reactive Normal Nonreactive [facility] Comment on above: Result Comment: Non Reactive: < 0.8 Equivocal: >/= 0.8 to < 1.0 Reactive: >/= 1.0 The CDC requires that a reactive/equivocal HCV antibody result be sent out for confirmation. HCV Quant by PCR testing. Performed By: #### L 3890.6300, L100.0100, L500.4100, L501.9520, L506.1000, L500.4050 #### [facility] [address] [place], [address] Lipid Profileon 06-09-2024 Cholesterol [Mass/Vol] 134 mg/dL Normal 200 [facility] Comment on above: Result Comment: <200 mg/dL Desirable 200-240 mg/dL Borderline >240 mg/dL High Risk Performed By: #### L 3890.6300, L100.0100, L500.4100, L501.9520, L506.1000, L500.4050 #### [facility] [address] [place], [address] Cholesterol in HDL [Mass/Vol] 60 mg/dL Normal [facility] Comment on above: Result Comment: The drugs N-Acetylcysteine and Metamizole may falsely depress this assay. Reference Range HDL <40 mg/dL Low HDL Cholesterol HDL >or= 60 mg/dL High HDL Cholesterol Performed By: #### L 3890.6300, L100.0100, L500.4100, L501.9520, L506.1000, L500.4050 #### [facility] [address] [place], [address] Cholesterol in LDL [Mass/Vol] 57 mg/dL Normal 0-130 [facility] Comment on above: Performed By: #### L 3890.6300, L100.0100, L500.4100, L501.9520, L506.1000, L500.4050 #### [facility] [address] [place], [address] Cholesterol in VLDL [Mass/Vol] 17 mg/dL Normal 5-40 [facility] Comment on above: Performed By: #### L 3890.6300, L100.0100, L500.4100, L501.9520, L506.1000, L500.4050 #### [facility] [address] [place], [address] Triglyceride [Mass/Vol] 84 mg/dL Normal [facility] Comment on above: Result Comment: The drugs N-Acetylcysteine and Metamizole may falsely depress this assay. Serum Triglycerides Reference Interval Normal <150 mg/dL Borderline high 150 - 199 mg/dL High 200 - 499 mg/dL Very High > or = 500 mg/dL Performed By: #### L 3890.6300, L100.0100, L500.4100, L501.9520, L506.1000, L500.4050 #### [facility] [address] [place], [address] Thyroid Stim Hormone (TSH)on 06-09-2024 TSH 2.300 uIU/mL Normal 0.358-3.740 [facility] Comment on above: Performed By: #### L 3890.6300, L100.0100, L500.4100, L501.9520, L506.1000, L500.4050 #### [facility] [address] [place], [address] Vitamin D,25 Hydroxyon 06-09 Vitamin D 25-OH 26.7 ng/mL Normal [facility] Comment on above: Result Comment: Pooja min D 25(OH) Status Range Deficiency <20 ng/mL (50nmol/L) Insufficiency 20 - 30 ng/mL (50 - 75 nmol/L) Sufficiency 30 - 100 ng/mL (75 - 250 nmol/L) Toxicity >100 ng/mL (>250 nmol/L) Performed By: #### L 3890.6300, L100.0100, L500.4100, L501.9520, L506.1000, L500.4050 #### [facility] [address] [place], [place], [address] Pulmonary Visit Reporton Pulmonary Visit Report [facility] 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 Accompanied by: Self Is patient [...] (Reviewed 03/09/24 @ 10:52 by Jeanine Cano WORKFORCE MANAGEMENT COORDINATOR, WORKFORCE MANAGEMENT COORDINATOR-C) COPD (chronic obstructive pulmonary disease) Current smoker Hypertension Surgical History (Reviewed 03/09/24 @ 10:52 by Jeanine Cano WORKFORCE MANAGEMENT COORDINATOR, WORKFORCE MANAGEMENT COORDINATOR-C) History of eye surgery Family History (Reviewed 03/09/24 @ 10:52 by Jeanine Cano WORKFORCE MANAGEMENT COORDINATOR, WORKFORCE MANAGEMENT COORDINATOR-C) Mother Hypertension Heart disease Social History Smoking Status: Former smoker Tobacco: How many years used: 50 Electronic Cigarette Use: not used second hand exposure: No quit status: considering quitting Review of Systems Resp Respiratory: Yes as per HPI Exam Const Constitutional: Positive conversant, cooperative, in no acute respiratory distress, healthy appearing, well developed, well nourished and poor (more content not included)... Normal [facility] Absolute lymphocyte countOrd ered By: Jayla Nunez on 06-09-2023 Lymphocytes Auto (Unsp spec) [#/Vol] 2.26 10*3/uL 0.83-4.51 [facility] Basophil percentageOrdered B y: Jayla Nuenz on 06-09-2023 Basophil percentage 0-5 SEEN /hpf 0-5 [facility] Basophils/100 WBC (Bld) 1.0 % 0-1 [facility] Bilirubin [Mass/Vol] 0.40 mg/dL 0.20-1.00 [facility] Comment on above: For patients on eltr ombopag therapy, use of Dimension Goff TBIL is not recommended. Chloride [Moles/Vol] 104 mmol/L 98-107 [facility] Eosinophils/100 WBC (Bld) 1.3 % 0-5 [facility] Glucose [Mass/Vol] 95 mg/dL 74-106 [facility] Neutrophils (Bld) [#/Vol] 4.6 10*3/uL 2.0-7.7 [facility] Neutrophils/100 WBC (Bld) 59.3 % 47-70 [facility] Potassium [Moles/Vol] 4.3 mmol/L 3.5-5.1 [facility] Comment on above: Slight Hemolysis, Re sult may be falsely increased. Protein [Mass/Vol] 7.0 g/dL 6.4-8.2 [facility] Sodium [Moles/Vol] 140 mmol/L 136-145 [facility] WBC (Bld) [#/Vol] 7.8 10*3/uL 4.4-11.0 [facility] Bilirubin Test strip Ql (U)O rdered By: Jayla Nunez on 06-09-2023 Bilirubin Ql (U) Negative Negative [facility] Blood erythrocytes count (nu mber/volume)Ordered By: Jayla Nunez on 06-09-2023 RBC (Bld) [#/Vol] 4.68 10*6/uL 4.6-6.2 [facility] Blood hemoglobin measurement (mass/volume)Ordered By: Jayla Nunez on 06-09-2023 Hemoglobin (Bld) [Mass/Vol] 14.4 g/dL 13.0-16.5 [facility] Blood lymphocytes/100 leukoc ytesOrdered By: Jayla Nunez on 06-09-2023 Lymphocytes/100 WBC (Bld) 29.1 % 19-41 [facility] Blood monocytes/100 leukocyt esOrdered By: Jayla Nunez on 06-09-2023 Monocytes/100 WBC (Bld) 9.0 % 0-10 [facility] Blood platelet mean volumeOr dered By: Jayal Nunez on 06-09-2023 Platelet mean volume (Bld) [Entitic vol] 10.1 fL 6.2-12.0 [facility] Determination of erythrocyte mean corpuscular volume (MCV)Ordered By: Jayla Nunez on 06-09-2023 MCV (RBC) [Entitic vol] 94.4 fL 80-94 [facility] Hematocrit Auto (Bld) [Volum e fraction]Ordered By: Jayla Nunez on 06-09-2023 Hematocrit (Bld) [Volume fraction] 44.2 % 40-54 [facility] Ketones Test strip Ql (U)Ord ered By: Jayla Nunez on 06-09-2023 Ketones Ql (U) Negative Negative [facility] - Chemistry and C hemistry - challengeOrdered By: Jayla Nunez on 06-09-2023 ALP [Catalytic activity/Vol] 37 U/L 45-117 [facility] ALT [Catalytic activity/Vol] 11 U/L 16-61 [facility] CO2 [Moles/Vol] 33.0 mmol/L 21.0-32.0 [facility] Globulin (S) [Mass/Vol] 3.4 g/dL 2.2-4.2 [facility] Urea nitrogen/Creatinine [Mass ratio] 14.7 mg/mg 10-20 [facility] - Hematology and Cell countsOrdered By: Jayla Nunez on 06-09-2023 Erythrocyte distribution width (RBC) [Entitic vol] 47.8 fL 35.1-43.9 [facility] Erythrocyte distribution width (RBC) [Ratio] 13.7 % 11.6-14.6 [facility] Immature granulocytes/100 WBC (Bld) 0.300 % 0.0-0.9 [facility] Comment on above: IG% - Immature Granu locytes (promyelocytes, myelocytes and metamyelocytes) > 1% indicates that a LEFT SHIFT is Present. MCH (RBC) [Entitic mass] 30.8 pg 27.0-32.0 [facility] Nucleated RBC/100 WBC (Bld) [Ratio] 0 % 0-5 [facility] Auto ([facility]) [Mass/Vol]Or dered By: Jayla Nunez on 06-09-2023 MCHC (RBC) [Mass/Vol] 32.6 g/dL 32-36 [facility] Mucus LM Ql (Urine sed)Order ed By: Jayla Nunez on 06-09-2023 Mucus Ql (Urine sed) 0 SEEN /hpf [facility] Nitrite Test strip Ql (U)Ord ered By: Jayla Nunez on 06-09-2023 Nitrite Ql (U) Negative Negative [facility] No Panel InformationOrdered By: Jayla Nunez on 06-09-2023 Estimated Creatinine Clearance Calc 44.31 ml/min [facility] Estimated GFR (MDRD) Amer 66 mL/min >60 [facility] Comment on above: GFR Calc Estimated GFR (MDRD) Non-Af Amer 55 mL/min >60 [facility] Comment on above: Non- GFR Calc Platelets bldOrdered By: Lissa Nunez on 06-09-2023 Platelets (Bld) [#/Vol] 282 10*3/uL 150-450 [facility] Protein Test strip Ql (U)Ord ered By: Jayla Nunez on 06-09-2023 Protein Ql (U) 30 mg/dl Negative [facility] Serum or plasma albumin aquiles urement (mass/volume)Ordered By: Jayla Nunez on 06-09-2023 Albumin [Mass/Vol] 3.6 g/dL 3.2-5.0 [facility] Serum or plasma albumin/glob ulin mass ratioOrdered By: Jayla Nunez on 06-09-2023 Albumin/Globulin [Mass ratio] 1.1 {ratio} 0.9-2.4 [facility] Serum or plasma calcium aquiles urement (mass/volume)Ordered By: Jayla Nunez on 06-09-2023 Calcium [Mass/Vol] 8.6 mg/dL 8.5-10.1 [facility] Serum or plasma creatinine m easurement (mass/volume)Ordered By: Jayla Nunez on 06-09-2023 Creatinine [Mass/Vol] 1.36 mg/dL 0.70-1.30 [facility] Comment on above: The validity of the calculated GFR & GFRAA in patients over 70 years has not been determined. Clinical correlation is essential. Serum or plasma urea nitroge n measurement (mass/volume)Ordered By: Jayla Nunez on 06-09-2023 Urea nitrogen [Mass/Vol] 20 mg/dL 7-18 [facility] Squamous epithelial cells de tection in urine sediment by light microscopyOrdered By: Jayla Nunez on 06-09-2023 Epithelial cells.squamous LM Ql (Urine sed) 0-5 SEEN /hpf 0-5 [facility] Thin prep Papanicolaou smear with manual screeningOrdered By: Jayla Nunez on 06-09-2023 Thin prep Papanicolaou smear with manual screening 14 U/L 15-37 [facility] Comment on above: Slight Hemolysis, Re sult may be falsely increased. Thin prep Papanicolaou smear with manual screening 3 5-15 [facility] Urine blood detectionOrdered By: Jayla Nunez on 06-09-2023 RBC Ql (U) 10 /ul Negative [facility] RBC Ql (U) 0-5 SEEN /hpf 0-5 [facility] Urine clarityOrdered By: Lissa Nunez on 06-09-2023 Clarity (U) Clear Clear [facility] Urine color determinationOrd ered By: Jayla Nunez on 06-09-2023 Color (U) Yellow Yellow [facility] Urine glucose detectionOrder ed By: Jayla Nunez on 06-09-2023 Glucose Ql (U) Normal mg/dl Normal [facility] Urine leukocyte esterase det ection by dipstickOrdered By: Jayla Nunez on 06-09-2023 Leukocyte esterase Test strip Ql (U) 25 /ul Negative [facility] Urine pHOrdered By: aJyla flowers on 06-09-2023 pH (U) 5.0 [pH] 5.0 - 8.0 [facility] Urine sediment bacteria coun t by microscopy (number/high power field)Ordered By: Jayla Nunez on 06-09-2023 Bacteria LM.HPF (Urine sed) [#/Area] 0 /[HPF] None Seen [facility] Urine specific gravity measu rementOrdered By: Jayla Nunez on 06-09-2023 Specific gravity (U) [Rel density] 1.015 1.002-1.030 [facility] Urobilinogen Auto test strip Ql (U)Ordered By: Jayla Nunez on 06-09-2023 Urobilinogen Ql (U) 1 mg/dl Normal [facility] CNOVon 11-06-2022 CNOV Office Visit (GENSWS ) LAYNE VASQUEZ ([id number]) 1950 M Date Time Provider Department 11/06/22 2:30 PM LASHAE STINSON During your visit today, we recorded the following information about you: Temperature Pulse Blood pressure Weight 98.4 degrees 82/minute 126/80 70.8 kg Height 1.676 m Lashae Stinson PA-C 11/12/2022 9:19 PM Signed FOLLOW UP VISIT - SKIN LESION NAME: Layne Grimes Christina CLINIC NO.: [id number] DATE OF SERVICE: 11/06/2022 : 1950 REFERRING [...] Encounter Status:Closed by LASHAE STINSON on 11/12/22 [facility] ANES POSTPROC EVALon 023 ANES POSTPROC EVAL HNO ID: [id number] Author: Tomas Browne MD Service: Anesthesiology Author Type: Anesthesiologist Type: Anesthesia Postprocedure Evaluation Filed: 10/30/2022 12:36 PM Note Text: POST ANESTHESIA EVALUATION NOTE : 1950 Procedure Summary Date: 10/30/22 Room / Location: [place] [address] / [place] [facility] Anesthesia Start: 1119 Anesthesia Stop: 1200 [...] October 30, 2022 TIME: 12:35 PM CSN: [id number] [facility] ANES PRE-OPon 10-30-2022 ANES PRE-OP HNO ID: [id number] Author: Tomas Browne MD Service: Anesthesiology Author Type: Anesthesiologist Type: Anesthesia Preprocedure Evaluation Filed: 10/30/2022 11:04 AM Note Text: ANESTHESIOLOGY DAY OF SURGERY NOTE : 1950 Procedure Information Date/Time: 10/30/22 1130 Procedures: EXCISION SOFT TISSUE TUMOR SUBFASCIAL OF FLANK / > 5CM (Flank) - Anticipated Surgical Procedure/ CPT Code: Mass - Back and Flank - Subfascial >5cm - 06721 EXCISION SOFT TISSUE TUMOR SUBFASCIAL OF BACK = / > 5CM (Back) Location: [facility] / [facility] Surgeons: Tyrese Savage MD Estimated body [...] and consent discussed: yes. Patient / Responsible Republican agrees to proceed: yes Patient / Surrogate [...] October 30, 2022 TIME: 11:04 AM CSN: [id number] Normal [facility] HISTORY PHYSICALon HISTORY PHYSICAL HNO ID: [id number] Author: Tyrese Savage MD Service: General Surgery [...] entered by the nurse and reviewed by al Nursing Notes: Ashlee Reyes LPN 10/08/2022 3:03 [...] vomiting, denies jaundice/hepatitis (more content not included)... [facility] OPERATIVE NOon 10-30-2022 OPERATIVE NO HNO ID: [id number] Author: Tyrese Savage MD Service: General Surgery Author Type: Physician Type: Operative Report Filed: 10/30/2022 11:57 AM Note Text: OPERATIVE/PROCEDURE REPORT LOG ID: [id number] SURGERY/PROCEDURE DATE: 10/30/2022 INCISION/PROCEDURE START TIME: 11:33 AM INCISION CLOSE/PROCEDURE END TIME: 11:53 AM SURGEON(S)/PROCEDURALI ST(S) [employer]OD SERVICES COORDINATOR(S): Surgeon(s) and Role: * Tyrese Savage MD - Primary Registered Nurse Information Management Officer: Norma Davis RN SURGERY/PROCEDURE(S): Excision of a [...] procedure well. Norma Davis RN was my obstetric assistant. She assisted with retraction, visualization and [...] DATE: October 30, 2022 TIME: 11:54 AM [facility] SURGICAL PATHOLOGYon 023 CASE REPORT [facility] Comment on above: Order Comment: Speci men Type: TISSUE SPECIMEN Ordering Facility: [facility] Address: [address] [place], [place] [id number] Result Comment: Surg [facility] Pathology Report Case: [id number] Authorizing Provider: Tyrese Savage MD Collected: 10/30/2022 11:35 AM Ordering Location: [facility] Surgery Received: 10/30/2022 11:56 AM Pathologist: Geraldine Cid MD Specimen: SOFT TISSUE, left flank subcutaneous tissue Performed By: #### S #### [facility] CLIA [id number] [address] [place] [address] [place] CLINICAL HISTORY Normal [facility] Comment on above: Order Comment: Speci men Type: TISSUE SPECIMEN Ordering Facility: [facility] Address: [address] [place] [address] Result Comment: Pre- op diagnosis: Lesion of subcutaneous tissue [L98.9] Performed By: #### S #### [facility] CLIA [id number] [address] [place] [address] OF [facility] FINAL DIAGNOSIS Normal [facility] Comment on above: Order Comment: Speci men Type: TISSUE SPECIMEN Ordering Facility: [facility] Address: [address] [place] [address] Result Comment: Soft tissue, left flank, excision: - Lipoma. Performed By: #### S #### [facility] CLIA [id number] [address] [place] [address] [place] FINAL PERFORMING LAB Normal [facility] Comment on above: Order Comment: Speci men Type: TISSUE SPECIMEN Ordering Facility: [facility] Address: [address] [place] [address] Result Comment: Diag nostic interpretation performed at [facility], [address] [place] [address] CLIA# [id number] Machine Grinder: Raza Jaimes M.D. Performed By: #### S #### [facility] CLIA [id number] [address] [place] [address] [place] GROSS DESCRIPTION A. SOFT TISSUE Normal [facility] Comment on above: Order Comment: Speci men Type: TISSUE SPECIMEN Ordering Facility: [facility] Address: [address] [place] [id number] Result Comment: Rece ived in formalin labeled left flank subcutaneous tissue is an irregularly-shaped piece of perdomo yellow lobulated adipose tissue that measures 8.5 x 6.4 x 3.1 cm. The specimen is serially sectioned perpendicular to the long axis revealing perdomo yellow lobulated and homogenous cut surfaces with no areas of hemorrhage, necrosis, induration, or nodularity. A customer sales representative section is submitted in formalin in cassette A1. FAMILIA/papito 10/30/2022 Gross examination performed at [facility], [address] [place] [address] CLIA# [id number] Performed By: #### S #### [facility] CLIA [id number] [address] [place] [address] [place] HISTORY PHYSICALon HISTORY PHYSICAL HNO ID: [id number] Author: Lashae Cardoso PA-C Service: ? Author Type: Physician Line Cleaner Type: HANDP Filed: 10/19/2022 11:33 AM Note [...] Back and Flank - Subfascial >5cm - 34634 EXCISION SOFT TISSUE TUMOR SUBFASCIAL OF FLANK / > 5CM (N/A) - Anticipated Surgical Procedure/ CPT Code: Mass - Back and Flank - Subfascial >5cm - [address]201 at the request of Dr. Tyrese Savage [...] manage symptoms. Procedure scheduled on 10/30/2022 at [place]. REVIEW OF SYSTEMS: General: No weight loss, malaise or fevers. Neurological: No history of TIA's, stroke, [employer] tumor, impaired sensorium, hemiplegia, paraplegia or quadraplegia. [...] for: arrhythmia, atrial fibrillation, DVT/PE, hyperlipidemia, recent ME and murmur/valvular heart disease. GI: No history [...] since quittin.3 (more content not included)... Normal [facility] CNOVon 10-08-2022 CNOV Office Visit (VALERIE ) LAYNE VASQUEZ ([id number]) 1950 M Date Time Provider Department 10/08/22 [...] daily. hydr (more content not included)... Normal [facility] No Panel InformationOrdered By: Marie Mckeon on 09-24-2022 Troponin I High Sensitivity 8 pg/mL 3.0-78.0 [facility] Comment on above: Please Note: New Maria Antonia t Units and Gender Specific Reference Ranges. For more information see Policy Stat Procedure Goff High Sensitivity Troponin (TNIH) and attachments. Absolute lymphocyte countOrd ered By: Marie Mckeon on 09-23-2022 Lymphocytes Auto (Unsp spec) [#/Vol] 2.21 10*3/uL 0.83-4.51 [facility] Basophil percentageOrdered B y: Marie Mckeon on 09-23-2022 Basophils/100 WBC (Bld) 1.0 % 0-1 [facility] Chloride [Moles/Vol] 103 mmol/L 98-107 [facility] Eosinophils/100 WBC (Bld) 6.2 % 0-5 [facility] Glucose [Mass/Vol] 94 mg/dL 74-106 [facility] Neutrophils (Bld) [#/Vol] 5.4 10*3/uL 2.0-7.7 [facility] Neutrophils/100 WBC (Bld) 57.8 % 47-70 [facility] Potassium [Moles/Vol] 3.7 mmol/L 3.5-5.1 [facility] Sodium [Moles/Vol] 141 mmol/L 136-145 [facility] WBC (Bld) [#/Vol] 9.3 10*3/uL 4.4-11.0 [facility] Blood erythrocytes count (nu mber/volume)Ordered By: Marie Mckeon on 09-23-2022 RBC (Bld) [#/Vol] 4.59 10*6/uL 4.6-6.2 [facility] Blood hemoglobin measurement (mass/volume)Ordered By: Marie Mckeon on 09-23-2022 Hemoglobin (Bld) [Mass/Vol] 14.8 g/dL 13.0-16.5 [facility] Blood lymphocytes/100 leukoc ytesOrdered By: Marie Mckeon on 09-23-2022 Lymphocytes/100 WBC (Bld) 23.8 % 19-41 [facility] Blood monocytes/100 leukocyt esOrdered By: Marie Mckeon on 09-23-2022 Monocytes/100 WBC (Bld) 11.0 % 0-10 [facility] Blood platelet mean volumeOr dered By: Marie Mckeon on 09-23-2022 Platelet mean volume (Bld) [Entitic vol] 10.3 fL 6.2-12.0 [facility] Determination of erythrocyte mean corpuscular volume (MCV)Ordered By: Marie Mckeon on 09-23-2022 MCV (RBC) [Entitic vol] 94.8 fL 80-94 [facility] Hematocrit Auto (Bld) [Volum e fraction]Ordered By: Marie Mckeon on 09-23-2022 Hematocrit (Bld) [Volume fraction] 43.5 % 40-54 [facility] Laboratory - Chemistry and C hemistry - challengeOrdered By: Marie Mckeon on 09-23-2022 CO2 [Moles/Vol] 32.0 mmol/L 21.0-32.0 [facility] Urea nitrogen/Creatinine [Mass ratio] 19.9 mg/mg 10-20 [facility] Laboratory - Hematology and Cell countsOrdered By: Marie Mckeon on 09-23-2022 Erythrocyte distribution width (RBC) [Entitic vol] 47.7 fL 35.1-43.9 [facility] Erythrocyte distribution width (RBC) [Ratio] 13.5 % 11.6-14.6 [facility] Immature granulocytes/100 WBC (Bld) 0.200 % 0.0-0.9 [facility] Comment on above: IG% - Immature Granu locytes (promyelocytes, myelocytes and metamyelocytes) > 1% indicates that a LEFT SHIFT is Present. MCH (RBC) [Entitic mass] 32.2 pg 27.0-32.0 [facility] Nucleated RBC/100 WBC (Bld) [Ratio] 0 % 0-5 [facility] MCHC Auto (RBC) [Mass/Vol]Or dered By: Marie Mckeon on 09-23-2022 MCHC (RBC) [Mass/Vol] 34.0 g/dL 32-36 [facility] No Panel InformationOrdered By: Marie Mckeon on 09-23-2022 D-Dimer Quantitative (PE/DVT) < 0.27 FEU/ug/m 0.27-0.49 [facility] Comment on above: NORMAL D-Dimer level (<0.50) indicates no DVT or PE. Estimated Creatinine Clearance Calc 43.36 ml/min [facility] Estimated GFR (MDRD) Amer 64 mL/min >60 [facility] Comment on above: GFR Calc Estimated GFR (MDRD) Non-Af Amer 53 mL/min >60 [facility] Comment on above: Non- GFR Calc Platelets bldOrdered By: Gita Mckeon on 09-23-2022 Platelets (Bld) [#/Vol] 285 10*3/uL 150-450 [facility] Serum or plasma calcium aquiles urement (mass/volume)Ordered By: Marie Mckeon on 09-23-2022 Calcium [Mass/Vol] 8.9 mg/dL 8.5-10.1 [facility] Serum or plasma creatinine m easurement (mass/volume)Ordered By: Marie Mckeon on 09-23-2022 Creatinine [Mass/Vol] 1.41 mg/dL 0.70-1.30 [facility] Comment on above: The validity of the calculated GFR & GFRAA in patients over 70 years has not been determined. Clinical correlation is essential. Serum or plasma urea nitroge n measurement (mass/volume)Ordered By: Marie Mckeon on 09-23-2022 Urea nitrogen [Mass/Vol] 28 mg/dL 02-19 [facility] Thin prep Papanicolaou smear with manual screeningOrdered By: Marie Mckeon on 09-23-2022 Thin prep Papanicolaou smear with manual screening 6 12-17 [facility] Vital Signs Date Time Vital Sign Value Performing Clinician Faci jessicay 08-06-2023 11:15-0500 Body height 167.[address] Betty Winslow Work Phone: [facility] 08-06-2023 11:15-0500 Body weight 67.[address] Betty Winslow Work Phone: [facility] 08-06-2023 11:15-0500 Heart rate 98 /min Dr. Betty Winslow Work Phone: [facility] 08-06-2023 11:15-0500 SaO2% (BldA) [Mass fraction] 98 % Dr. Betty Winslow Work Phone: [facility] 07-02-2023 09:59-0500 Body temperature 98.4 [degF] Dr. Betty Winslow Work Phone: [facility] 07-02-2023 09:59-0500 Body weight 73.[address] Betty Winslow Work Phone: [facility] 07-02-2023 09:59-0500 Diastolic blood pressure 85 mm[Hg] Dr. Betty Winslow Work Phone: [facility] 07-02-2023 09:59-0500 Heart rate 62 /min Dr. Betty Winslow Work Phone: [facility] 07-02-2023 09:59-0500 Respiratory rate 16 /min Dr. Betty Winslow Work Phone: [facility] 07-02-2023 09:59-0500 SaO2% (BldA) [Mass fraction] 97 % Dr. Betty Winslow Work Phone: [facility] 07-02-2023 09:59-0500 Systolic blood pressure 135 mm[Hg] Dr. Betty Winslow Work Phone: [facility] 06-09-2023 15:53-0500 Heart rate 65 /min Dr. Betty Winslow Work Phone: [facility] 06-09-2023 15:53-0500 Respiratory rate 15 /min Dr. Betty Winslow Work Phone: [facility] 06-09-2023 15:53-0500 SaO2% (BldA) [Mass fraction] 95 % Dr. Betty Winslow Work Phone: [facility] 06-09-2023 12:30-0500 Diastolic blood pressure 89 mm[Hg] Dr. Betty Winslow Work Phone: [facility] 06-09-2023 12:30-0500 Systolic blood pressure 134 mm[Hg] Dr. Betty Winslow Work Phone: [facility] 06-09-2023 09:46-0500 Body height 167.[address] Betty Winslow Work Phone: [facility] 06-09-2023 09:46-0500 Body mass index (BMI) [Ratio] 23.8 kg/m2 Dr. Betty Winslow Work Phone: [facility] 06-09-2023 09:46-0500 Body temperature 98 [degF] Dr. Betty Winslow Work Phone: [facility] 06-09-2023 09:46-0500 Body weight 67.[address] Betty Winslow Work Phone: [facility] 02-14-2023 08:20-0400 Body mass index (BMI) [Ratio] 25 kg/m2 Dr. Betty Winslow Work Phone: [facility] 02-14-2023 08:20-0400 Body temperature 98.6 [degF] Dr. Betty Winslow Work Phone: [facility] 02-14-2023 08:20-0400 Body weight 70.[address] Betty Winslow Work Phone: [facility] 02-14-2023 08:20-0400 Diastolic blood pressure 99 mm[Hg] Dr. Betty Winslow Work Phone: [facility] 02-14-2023 08:20-0400 Heart rate 56 /min Dr. Betty Winslow Work Phone: [facility] 02-14-2023 08:20-0400 Respiratory rate 20 /min Dr. Betty Winslow Work Phone: [facility] 02-14-2023 08:20-0400 SaO2% (BldA) [Mass fraction] 95 % Dr. Betty Winslow Work Phone: [facility] 02-14-2023 08:20-0400 Systolic blood pressure 187 mm[Hg] Dr. Betty Winslow Work Phone: [facility] 11-06-2022 14:25-0400 Body height 167.6 cm Lashae Mad River PA-C Work Phone: [facility] 11-06-2022 14:25-0400 Body temperature 98.4 [degF] Lashae Mad River PA-C Work Phone: [facility] 11-06-2022 14:25-0400 Body weight 70.76 kg Lashae Milad PA-C Work Phone: [facility] 11-06-2022 14:25-0400 Diastolic blood pressure 80 mm[Hg] Lashae Milad PA-C Work Phone: [facility] 11-06-2022 14:25-0400 Heart rate 82 /min Lashae Milad PA-C Work Phone: [facility] 11-06-2022 14:25-0400 SaO2% (BldA) [Mass fraction] 97 % Lashae Milad PA-C Work Phone: [facility] 11-06-2022 14:25-0400 Systolic blood pressure 126 mm[Hg] Lashae Milad PA-C Work Phone: [facility] 10-08-2022 15:01-0500 Body height 167.6 cm Tyrese Savage MD Work Phone: [facility] 10-08-2022 15:01-0500 Body temperature 98.8 [degF] Tyrese Savage MD Work Phone: [facility] 10-08-2022 15:01-0500 Body weight 69.85 kg Tyrese Savage MD Work Phone: [facility] 10-08-2022 15:01-0500 Diastolic blood pressure 78 mm[Hg] Tyrese Savage MD Work Phone: [facility] 10-08-2022 15:01-0500 Heart rate 77 /min Tyrese Savage MD Work Phone: [facility] 10-08-2022 15:01-0500 SaO2% (BldA) [Mass fraction] 97 % Tyrese Savage MD Work Phone: [facility] 10-08-2022 15:01-0500 Systolic blood pressure 146 mm[Hg] Tyrese Savage MD Work Phone: [facility] 09-24-2022 01:16-0500 Diastolic blood pressure 72 mm[Hg] Dr. Betty Winslow Work Phone: [facility] 09-24-2022 01:16-0500 Systolic blood pressure 116 mm[Hg] Dr. Betty Winslow Work Phone: [facility] 09-24-2022 00:53-0500 SaO2% (BldA) [Mass fraction] 99 % Dr. Betty Winslow Work Phone: [facility] 09-23-2022 23:30-0500 Heart rate 68 /min Dr. Betty Winslow Work Phone: [facility] 09-23-2022 23:30-0500 Respiratory rate 16 /min Dr. Betty Winslow Work Phone: [facility] 09-23-2022 21:06-0500 Body height 167.[address] Betty Winslow Work Phone: [facility] 09-23-2022 21:06-0500 Body mass index (BMI) [Ratio] 25.2 kg/m2 Dr. Betty Winslow Work Phone: [facility] 09-23-2022 21:06-0500 Body temperature 98 [degF] Dr. Betty Winslow Work Phone: [facility] 09-23-2022 21:06-0500 Body weight 70.[address] Betty Winslow Work Phone: [facility] 08-15-2022 09:30-0500 Body mass index (BMI) [Ratio] 25.2 kg/m2 Dr. Betty Winslow Work Phone: [facility] 08-15-2022 09:30-0500 Body temperature 98.6 [degF] Dr. Betty Winslow Work Phone: [facility] 08-15-2022 09:30-0500 Body weight 70.[address] Betty Winslow Work Phone: [facility] 08-15-2022 09:30-0500 Diastolic blood pressure 82 mm[Hg] Dr. Betty Winslow Work Phone: [facility] 08-15-2022 09:30-0500 Heart rate 72 /min Dr. Betty Winslow Work Phone: [facility] 08-15-2022 09:30-0500 Respiratory rate 20 /min Dr. Betty Winslow Work Phone: [facility] 08-15-2022 09:30-0500 SaO2% (BldA) [Mass fraction] 95 % Dr. Betty Winslow Work Phone: [facility] 08-15-2022 09:30-0500 Systolic blood pressure 149 mm[Hg] Dr. Betty Winslow Work Phone: [facility] Encounters Encounter Date Encounter Type Care Provider Facility Start: 02-22-2025 End: 02-22-2025 ambulatory Jeanine Cano WORKFORCE MANAGEMENT COORDINATOR-C Work Phone: -Cat Scan [facility] Start: 02-22-2025 End: 02-22-2025 Patient encounter procedure Jeanine Cano WORKFORCE MANAGEMENT COORDINATOR-C -Cat Scan [facility] Work Phone: Start: 02-22-2025 End: 02-22-2025 ambulatory Jeanine Cano WORKFORCE MANAGEMENT COORDINATOR Facility:[facility] Start: 02-07-2025 End: 02-08-2025 Refill Haleigh Giles MD Work Phone: Ophthalmology Comment on above: Refill Request Start: 09-09-2024 End: 09-09-2024 ambulatory Richard Chi Lee Facility:[facility] Start: 08-06-2024 ambulatory Chris Dorothy Facility:[facility] Start: 08-06-2024 End: 08-06-2024 ambulatory Richard Chi Lee Facility:[facility] Start: 07-17-2024 End: 07-17-2024 ambulatory Richard Chi Lee Facility:[facility] Start: 06-15-2024 End: 06-15-2024 ambulatory Richard Chi Lee Facility:[facility] Start: 06-09-2024 End: 06-09-2024 ambulatory Richard Chi Lee Facility:[facility] Start: 03-09-2024 End: 03-09-2024 ambulatory Betty Winslow Facility:[facility] Start: 12-10-2023 Refill Tiff Ohara MD Work Phone: Ophthalmology Comment on above: Refill Request Start: 08-07-2023 Non-patient / Non-visit Dr. Pete Winslow Work Phone: [facility] Start: 08-06-2023 End: 08-06-[address] Betty Winslow Work Phone: [facility] Work Phone: Start: 08-06-2023 End: 08-06-[address] Betty Winslow Work Phone: [facility]-Pulmonary Services/Neurology Work Phone: Start: 07-16-2023 Non-patient / Non-visit Dr. Pete Winslow Work Phone: [facility] Start: 07-15-2023 End: 07-15-[address] Betty Winslow Work Phone: [facility] Work Phone: Start: 07-15-2023 End: 07-15-[address] [facility] Start: 07-02-2023 End: 07-02-[address] Betty Winslow Work Phone: [facility] Work Phone: Start: 06-10-2023 End: 06-10-2023 ambulatory BETTY WINSLOW Facility:[facility] Start: 06-10-2023 End: 06-10-2023 Patient encounter procedure [...] patient visit Dr. Betty Winslow Work Phone: [facility]-Emergency Department Work Phone: Start: 02-20-2023 End: 02-20-[address] Betty Winslow Work Phone: [facility] Work Phone: Start: 02-14-2023 End: 02-14-[address] 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; Traumatic glaucoma, left, indeterminate stage; Pseudophakia Start: 11-21-2022 End: 11-22-2022 ambulatory TIFF OHARA Facility:[facility] Start: 11-21-2022 End: 11-21-2022 Patient encounter procedure Tiff Ohara MD Work Phone: Ophthalmology Comment on above: Combined forms of ag e-related cataract of right eye (Primary Dx); Bullous keratopathy of left eye; S/P PKP (penetrating keratoplasty); 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; Traumatic glaucoma, left, indeterminate stage; Pseudophakia Start: 11-06-2022 End: 11-07-2022 ambulatory [place] Elena [facility] Facility:[facility] Start: 11-06-2022 End: 11-06-2022 Patient encounter procedure Lashae Stinson PA-C Work Phone: General Surgery Comment on above: Aftercare following surgery (Primary Dx) Start: 10-30-2022 End: 10-30-2022 ambulatory [facility] Facility:[facility] Start: 10-19-2022 End: 10-20-2022 ambulatory [facility] Facility:[facility] Start: 10-19-2022 Encounter for other preprocedural examination BETTY [facility] Start: 10-08-2022 End: 10-09-2022 ambulatory [facility] Facility:[facility] Start: 10-08-2022 End: 10-08-2022 Patient encounter procedure Tyrese Savage MD Work Phone: General Surgery Comment on above: Lesion of subcutaneo us tissue (Primary Dx) Start: 09-23-2022 End: 09-24-2022 Emergency department patient visit Dr. Betty Winslow Work Phone: [facility]-Emergency Department Start: 08-15-2022 End: 08-15-[address] Betty Winslow Work Phone: [facility]-Pulmonary Medicine [facility] Start: 01-02-2022 End: 01-02-2022 Patient encounter procedure [facility]-Cat Scan, [facility] Procedures Date Procedure Procedure Detail Performing Clinician Start: 02-22-2025 CT of chest Jeanine Cano WORKFORCE MANAGEMENT COORDINATOR-C Work Phone: Start: 06-09-2023 Computed tomography angiography of abdominal and/or pelvic blood vessel Dr. Betty Winslow Work Phone: Start: 06-09-2023 CT of abdomen and pe lvis without contrast Dr. Betty Winslow Work Phone: Start: 06-09-2023 X-ray of lumbosacral spine Dr. Betty Winslow Work Phone: Start: 02-20-[address] Betty escobar Work Phone: Start: 09-23-2022 Plain chest X-ray Dr. Shy Winslow Work Phone: Start: 01-02-2022 CT of chest Start: 09-28-2019 Colonoscopy Tyrese slater MD Work Phone: Plan of Treatment Date Care Activity Detail Author Start: 11-06-2026 Urine microalbumin profile DTaP,Tdap,Td Vaccine (2 - Td or Tdap) [facility] Start: 04-05-2025 Influenza vaccination Influenza Vacc ine (#1) [facility] Start: 03-17-2025 End: 03-17-2025 Patient encounter procedure 03/17/2025 9:15 AM EDT Office Visit [facility] [address] [place] [address] Tiff Ohara MD [address] [place] [address] [facility] [address] [address] Return in about 6 months (around 12/09/2023) for Dr. Ohara for IOP, cornea and cataract check. Ophthalmology Comment on above: Return in about 6 mo nths (around 12/09/2023) for Dr. Ohara for IOP, cornea and cataract check. Start: 08-05-2024 Advance Directive Discussion Advance Directive Discussion [facility] Start: 04-05-2024 Covid-19 Vaccine ( season) Covid-19 Vaccine ( season) [facility] Start: 04-05-2024 Influenza vaccination Influenz a Vaccine (Season Ended) [facility] Start: 08-05-2023 Advance Directive Discussion Advance Directive Discussion [facility] Start: 08-05-2023 Behavioral Health Screening Behavioral Health Screening [facility] Start: 04-05-2023 Covid-19 Vaccine () Covid-19 Vaccine ( season) [facility] Start: 04-05-2023 Influenza vaccination C [facility] Start: 09-23-2022 [facility] Start: 08-05-2022 ADVANCE DIRECTIVE DISCUSSION ADVANCE DIRECTIVE DISCUSSION [facility] Start: 08-05-2022 DEPRESSION ASSESSMENT DEPRESSION ASS ESSMENT [facility] Start: 04-05-2022 Influenza vaccination INFLUENZA (#1) [facility] Start: 09-28-2020 Colonoscopy COLONOSCOPY [facility] Start: 09-28-2020 COLORECTAL CANCER SCREENING COLORECTAL CANCER SCREENING [facility] Start: 2016 PNEUMOCOCCAL: 65+ (1 - PCV) PNEUMOCOCCAL: 65+ (1 - PCV) [facility] Start: 05-05-2016 Medicare Annual Well ness Visit Medicare Annual Wellness Visit [facility] Start: 2011 RSV Vaccine (1 - 1-d ose 60+ series) RSV Vaccine (1 - 1-dose 60+ series) [facility] Start: 2011 RSV Vaccine (1 - Ris k 60-74 years 1-dose series) RSV Vaccine (1 - Risk 60-74 years 1-dose series) [facility] Start: 2001 Influenza vaccination LUNG CANCER SC REENING [facility] Start: 2001 Screening for malign ant neoplasm of lung Lung Cancer Screening [facility] Start: 2001 SHINGRIX VACCINE (1 of 2) SHINGRIX VACCINE (1 of 2) [facility] Start: 1996 COLOGUARD (FIT-DNA) COLOGUARD (FIT-D NA) [facility] Start: [address] COLONOGRAPHY [facility] Start: 1996 DIABETES SCREEN DIABETES SCREEN [facility] Start: 1996 Diabetes Screening Diabetes Screenin g [facility] Start: 1996 FECAL OCCULT BLOOD FECAL OCCULT BLOO D [facility] Start: 1996 Screening for malign ant neoplasm of colon [facility] Start: 1996 [facility] Start: 1986 Lipid 1996 panel - S favoila or Plasma Lipid Screening [facility] Start: 1986 Lipid panel [facility] Start: 1986 LIPID SCREEN LIPID SCREEN [facility] Start: 1981 Zoledronic acid therapy ALPHA- 1 ANTITRYPSIN DEFICIENCY SCREENING [facility] Start: 1970 Pneumococcal Vaccine : 50+ (1 of 2 - PCV) Pneumococcal Vaccine: 50+ (1 of 2 - PCV) [facility] Start: 1970 Urine microalbumin profile DTAP,TDAP,TD (1 - Tdap) [facility] Start: 1969 ANNUAL PCP TEAM INTERNAL COMMUNICATIONS INTERN CARLINE DISEASE VISIT ANNUAL PCP TEAM CHRONIC DISEASE VISIT [facility] Start: 1969 BP CONTROLLED (<130/80) BP CON TROLLED (<130/80) [facility] Start: 1969 Depression Screening Depression Scre ening [facility] Start: 1969 HEPATITIS C SCREENING HEPATITIS C [facility] Start: 1969 Hepatitis C screening Hepatitis C [facility] Start: 1969 SPIROMETRY SPIROMETRY [facility] Start: 1957 Pneumococcal Vaccine : 65+ (1 - PCV) Pneumococcal Vaccine: 65+ (1 - PCV) [facility] Start: 1957 Pneumococcal Vaccine : 65+ (1 of 2 - PCV) Pneumococcal Vaccine: 65+ (1 of 2 - PCV) [facility] [facility] Start: 1956 PNEUMOCOCCAL: 65+ (1 - PCV) PNEUMOCOCCAL: 65+ (1 - PCV) [facility] Start: 1950 ABDOMINAL AORTIC ANEURYSM SCREENING ABDOMINAL AORTIC ANEURYSM SCREENING [facility] Start: 1950 Abdominal aortic aneurysm screening Abdominal Aortic Aneurysm Screening [facility] Doppler ultrasonogra phy of aorta [facility] Exercise tolerance test [facility] Measurement of respiratory function [facility] Patient Education [facility] Work Phone: Patient referral [facility] Work Phone: [facility] Immunizations Immunization Date Immunization Notes Care Provider Joy morel 06-10-2021 influenza, high-dose , quadrivalent vaccine (FLUZONE HIGH DOSE QUADRIVALENT) Tyrese Savage MD Work Phone: [facility] Work Phone: 06-10-2021 influenza virus vaccine, unspecified formulation Jammie Daniel OD Work Phone: [facility] 11-06-2016 tetanus toxoid, redu maksim diphtheria toxoid, and acellular pertussis vaccine, adsorbed [facility] Payers Date Payer Category Payer Self-pay [id number] 2023 Unknown [id number] 2017 Medicare [id number] 2017 Private Health Insurance [facility] [place] [address] [id number] 2017 Unknown [facility] MEDICARE SUPPLEMENT [id number] 2017-Present [phone] [place] [address] [place] [address] [employer] [id number] 2016 Medicare [id number] 2016 Medicare [id number] Medicare [id number] Unknown [id number] Unknown [id number] Unknown [id number] Unknown [id number] Unknown [id number] Unknown [id number] Unknown [id number] Unknown [id number] Unknown [id number] Social History Date Type Detail Facility Start: 08-18-2021 End: 07-02-2023 Tobacco smoking status [facility] Unknown if ever smoked [facility] Start: 09-25-2019 Cigarettes [facility] Start: 1950 Sex Assigned At Male [facility] Start: 10-08-2022 End: 08-15-2023 Tobacco smoking status NHIS Ex-smoker [facility] Start: 06-05-1972 End: 06-05-2022 History of tobacco use Current smoker [facility] Start: 06-05-1972 End: 06-05-2022 History of tobacco use Cigarette Smoker [facility] Start: 10-08-2022 End: 06-03-2023 Cigarettes smoked current (pack per day) - Reported 1 [facility] Start: 10-08-2022 End: 10-19-2022 Tobacco use and exposure Smokeless tobacco non-user [facility] Start: 10-08-2022 Alcohol intake Lifetime non-drinker (finding) [facility] Start: 11-03-2020 History SDOH Alcohol Frequency 1 [facility] Start: 1950 Sex Assigned At Not on file [facility] Start: 11-06-2022 End: 06-10-2023 Alcohol intake Ex-drinker (finding) [facility] Start: 11-03-2020 End: 06-03-2023 Alcohol Use Disorder Identification Test - Consumption [AUDIT-C] [facility] How often to you hav e a drink containing alcohol? Never [facility] Average Number of Drinks Not on file [facility] Medical Equipment Procedure Code Equipment Code Equipment Origin al Text Equipment Identifier Dates Cornea Tissue - [id number] Start: 06-02-2018 Graft Tutoplast Sclera .8x.5cm Soft Tissue Low Profile Processed Sterile - [id number] Start: 02-18-2018 Drain Baerveldt Silicone Glaucoma Imnplant Anterior Chamber - [id number] Start: 02-18-2018 Comment on above: Description: Article #: [id number] Clinical Notes 09-23-2022 to 02-22-2025 Jammie Daniel, OD - 06/10/2023 3:49 PM EST Note Date & Type Note Facility 02-22-2025 Radiology Diagnostic study note [facility] Imaging Services [address] [place] [id number] Lung Screening MR#: [id number] Acct: [id number] Name: LAYNE VASQUEZ Rep #: [id number] : 1950 M 74 From: Hollie Alberts MD PCP: Dr. Richard Howard MD Status: [address] Study:Low Dose CT Lung Screening Date of Exam : 02/22/25 Exam# [id number] Ordering Dr: Cornelio Cano NP WORKFORCE MANAGEMENT COORDINATOR-C PROCEDURE: LOW DOSE CT LUNG SCREENING 02/22/2025 REASON FOR EXAM: SMOKING TECHNIQUE: LOW DOSE CT LUNG SCREENING Coronal and Sagittal reconstruction series were provided. One or more dose reduction techniques were used (e.g., Automated exposure control, adjustment of the mA and/or kV according to patient size, use of iterative reconstruction technique). REFERENCE LINK: Grid Net Lung-RADS RADIATION DOSE SUMMARY: CTDlvol: 3 mGy [...] Category: 1 Other Significant Findings: Reading Location: [place] [address] CC: NAVARRO Cano; Dr. Richard Howrad MD ~ Veterinary Nurse: Signed [facility] 08-07-2023 Procedure note [facility] 07-16-2023 Procedure note [facility] 06-10-2023 Note HNO ID: [id number] Author: Jammie Daniel OD Service: ? Author Type: CARDIOPULMONARY TECHNICIAN Type: Progress Notes Filed: 06/10/2023 3:58 PM [...] Daniel, OD June 10, 2023 3:49 PM [facility] 06-10-2023 History of Present illness Narrative 1. [...] 2023 3:49 PM documented in this encounter [facility] 06-09-2023 Discharge summary Note Date/Time June 09, 2023 10:18am [facility] Medical Records Department [address] [place] [address] Emergency Department Summary 06/09/23 MR#: [id number] Acct: [id number] Name: VASQUEZLAYNE Rep #:[id number] : 1950 73 From: Jayla Reyes PCP: [...] time. Does not take any blood thinners. [facility] Medical History COPD (chronic obstructive pulmonary [...] months. Patient is informed of these findings. 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 You may also quqfohbm-bwe-dflhcvb Tylenol as needed for pain. Use anti-inflammatory [...] your Primary Care Provider. Call [facility] ([phone]) or report to the closest Emergency Room. Call 911 if necessary. 06/09/23 1542 <Electronically signed by Jayla Nunez DO> Cosigner Signature (if applicable): CC: Dr. Betty Winslow DO ~ Signed [facility] Work Phone: 1(834) 555-344404-28-2023 NoteHNO ID: [id number] Author: Jammie Daniel, [place] Service: ? Author Type: CARDIOPULMONARY TECHNICIAN Type: Progress Notes Filed: 11/30/2022 1:52 PM [...] Jammie Daniel, OD November 30, 2022 1:46 [facility]04-28-2023 History of Present illness Narrative* Jammie [...] 30, 2022 1:46 PM [facility]23 NoteHNO ID: [id number] Author: Tiff Ohara MD Service: ? Author [...] all of its relevant components. Tiff Ohara, [facility]04-19-2023 History of Present illness Narrative* Tiff [...] components. Tiff Ohara MD [facility]23 NoteHNO ID: [id number] Author: Lashae Stinson PA-C Service: ? Author Type: Physician Line Cleaner Type: Progress Notes Filed: 11/12/2022 9:19 PM Note Text: FOLLOW UP VISIT - SKIN LESION NAME: Layne Vasquez [facility] NO.: [id number] DATE OF SERVICE: 11/06/2022 : 1950 REFERRING [...] to follow-up with me as needed. [facility] Instructions* Patient Instructions* Lashae Stinson PA-C - 11/06/2022 2:46 PM EDT -Pathology was benign-lipoma -OK to remove steri-strips in 5 days if they have not fallen off by that time -Call if any signs of fluid collection or recurrent lump at site [facility] History of Present illness Narrative* Lashae Stinson PA-C - 11/06/2022 2:34 PM EDT FOLLOW UP VISIT - SKIN LESION NAME: Layne Grimes [facility] NO.: [id number] DATE OF SERVICE: 11/06/2022 : 1950 REFERRING [...] needed. Lashae Stinson PA-C [facility] History of Past illness Narrative* Problem Noted Date Resolved Date Lesion of subcutaneous tissue 10/30/2022 Bradycardia 02/10/2018 10/19/2022 documented as of this encounter (statuses as of 11/13/2022) [address]28-2023 History of Past illness Narrative* Problem Noted Date Resolved Date Lesion of subcutaneous tissue 10/30/2022 Bradycardia 02/10/2018 10/19/2022 documented as of this encounter (statuses as of 11/22/2022) [address]28-2023 History of Past illness Narrative* Problem Noted Date Resolved Date Lesion of subcutaneous tissue 10/30/2022 Bradycardia 02/10/2018 10/19/2022 documented as of this encounter (statuses as of 11/30/2022) [address]28-2023 History of Past illness Narrative* Problem Noted Date Diagnosed Date Resolved Date Lesion of subcutaneous tissue 10/30/2022 10/30/2022 Bradycardia 02/10/2018 10/19/2022 documented as of this encounter (statuses as of 06/11/2023) [facility]03-06-2023 NoteHNO ID: [id number] Author: Tyrese Savage MD Service: ? Author [...] entered by the nurse and reviewed by al Nursing Notes: Ashlee Reyes LPN 10/08/2022 3:03 [...] denies bleeding from rectu (more content not included)...[facility]03-06-2023 History of Present illness Narrative* Tyrese Savage [...] entered by the nurse and reviewed by al Nursing Notes: Ashlee Reyes LPN 10/08/2022 3:03 [...] Back and Flank - Subfascial >5cm - [id number] Anticipated Anesthetic: MAC with local Patient weight: Blood pressure 146/78, pulse 77, temperature 37.1 C (98.8 F), height 167.6 cm (5' 6), weight 69.9 kg (154 lb), SpO2 97 %. BMI: Body mass index is 24.86 kg/m . Planned antibiotic: Ancef 2gm IVPB composition molder to OR SCDs needed: Yes Line Cleaner Needed: Yes Pre Op Clearance: None Anticoagulation: Yes: Hold 5 days-Restart pod 1 Diabetic: No Location: [place] Tyrese Savage III, MD documented [facility] Nurse Note* Ashlee Reyes, INFANT TODDLER LEAD TEACHER - 10/08/2022 3:00 PM EST REVIEW OF [...] 2019 Ashlee Reyes LPN documented [facility] Nunez [facility] September 24, 2022 12:59am Note Date/Time September 23, 2022 9:29pm [facility] Medical Records Department [address] [place] [address] Emergency Department Summary 09/23/22 MR#: [id number] Acct: [id number] Name: LAYNE VASQUEZ Rep #:[id number] : 1950 72 From: Marie BERMUDEZ PCP: [...] surgery or travel, hemoptysis, or hormone use. [facility] <LARA Maza - Last Filed: 09/23/22 22:02> [facility] Medical History (Updated 09/24/22 @ 00:50 [...] <LARA Maza - Last Filed: 09/23/22 22:02> [facility] Narrative Medical decision making narrative: Patient [...] % (Auto) 57.8 Lymph % (Auto) 23.8 [place] % (Auto) 11.0 H Eos % (Auto) [...] (Auto) Neut % (Auto) Lymph % (Auto) [place] % (Auto) Eos % (Auto) Baso % [...] % (Auto) 57.8 Lymph % (Auto) 23.8 [place] % (Auto) 11.0 H Eos % (Auto) [...] (Auto) Neut % (Auto) Lymph % (Auto) [place] % (Auto) Eos % (Auto) Baso % [...] discharged home. Encouraged to follow-up with his circle beveler as well as primary care doctor. Will [...] your Primary Care Provider. Call [facility] ([phone]) or report to the closest Emergency Room. Call 911 if necessary. 09/23/[id number] <Electronically signed by Marie BERMUDEZ> Cosigner Signature (if applicable): 09/24/22 0059 <Electronically signed by Jayla Nunez DO> CC: Dr. Betty Winslow DO ~ Signed [facility] Work Phone: Evaluation noteNo assessment information available [facility] Work Phone: Evaluation note* Diagnosis Onset Date Resolution Status Asthma-COPD overlap syndrome chronic Smoking greater than 40 pack years chronic Stage 3 severe COPD by GOLD classification [facility] Work Phone: Evaluation note* Diagnosis Lesion of subcutaneous tissue- Primary Unspecified disorder of skin and subcutaneous tissue Lesion of subcutaneous tissue Unspecified disorder of skin and subcutaneous tissue [facility] Diagnosis Aftercare following surgery- Primary Encounter for other specified aftercare [facility]* Diagnosis Combined forms of age-related cataract of right eye- Primary Other and combined forms of senile cataract Bullous keratopathy of left eye Bullous keratopathy S/P PKP (penetrating keratoplasty) 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, left, indeterminate stage Pseudophakia Lens replaced by other means [facility]* Diagnosis Regular astigmatism of both eyes- Primary Regular astigmatism Combined forms of age-related cataract of right eye Other and combined forms of senile cataract Bullous keratopathy of left eye Bullous keratopathy S/P PKP (penetrating keratoplasty) 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, left, indeterminate stage Pseudophakia Lens replaced by other means [facility]* Diagnosis Onset Date Resolution Status Asthma-COPD overlap syndrome chronic Smoking greater than 40 pack years [facility] Work Phone: Evaluation note* Diagnosis Combined forms of age-related cataract of right eye- Primary Other and combined forms of senile cataract Regular astigmatism of both eyes Regular astigmatism Bullous keratopathy of left eye Bullous keratopathy S/P PKP (penetrating keratoplasty) 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 We will treat with a short course of pain medicine as well as a burst of steroids. You may also take psen-uvm-wzxlika Tylenol as needed for pain. Use anti-inflammatory such as ibuprofen or naproxen sparingly your kidney function is borderline. Make sure you are drinking plenty of fluids. He been given referral for vascular surgery for further follow-up/monitoring of this aneurysm. In addition please follow-up with your family doctor for monitoring of cyst on your right kidney. It is unlikely they are malignant.[facility] Work Phone: Reason for referral (narrative)No reason for referral information availableWMercy Hospital Work Phone: Chief Complaint and Reason for [...] No September 25 020 2:33pm Power of Machine Coil Assembler No September 25, 2019 2:33pm Advance Directive Response Recorded Date/ Time Name of Medical Power of Machine Coil Assembler GE[place] MOULTON- DAUGHTER September 23, 2022 9:26pm Living Will Yes September 23 023 9:26pm Power of Machine Coil Assembler Yes September 23, 2022 9:26pm Advance Directive Response Recorded Date/ Time Living Will No June 09 9:52am Power of Machine Coil Assembler No June 09, 2023 9:52am Advance Directive Response Recorded Date/ Time Living Will No June 09 10:52am Do you have a Healthcare Power of Machine Coil Assembler? No June 09, 2023 10:52am Summary Purpose [...] Dr. Jayla Nunez DO Emergency Provider Active Recreational Therapy Aide Relationship Specialty Start Date End Date Betty Winslow DO [address] [place], [place] [id number] PCP - General Family Medicine 05/15/18 Recreational Therapy Aide Relationship Specialty Start Date End Date Betty Winslow DO [address] [place], [place] [address] PCP - General Family Medicine 05/15/18 Recreational Therapy Aide Relationship Specialty Start Date End Date Betty Winslow DO [address] [place], [place] [id number] PCP - General Family Medicine 05/15/18 Recreational Therapy Aide Relationship Specialty Start Date End Date Betty Winslow DO [address] [place], [place] [id number] PCP - General Family Medicine 05/15/18 Team Status: Inactive Member Role Status Dates Dr. Betty Winslow , DO Primary Care Provider, Referrin g Provider Active Jeanine Cano WORKFORCE MANAGEMENT COORDINATOR, WORKFORCE MANAGEMENT COORDINATOR-C Attending Provider Active Team Status: Inactive Member Role Status Dates Dr. Betty Winslow , DO Primary Care Provider Active Jeanine Cano WORKFORCE MANAGEMENT COORDINATOR, WORKFORCE MANAGEMENT COORDINATOR-C Attending Provider, Referrin g Provider Active Recreational Therapy Aide Relationship Specialty Start Date End Date Betty Winslow DO [address] [place], [place] [id number] PCP - [facility] 05/15/18 Team Status: Inactive Member Role Status Dates Dr. Betty Winslow , DO Primary Care Provider, Referrin g Provider Active LARA Malik Attending Provider Active Team Status: Active Member Role Status Dates Dr. Betty Winslow DO Primary Care Provider Active Jeanine Cano WORKFORCE MANAGEMENT COORDINATOR, WORKFORCE MANAGEMENT COORDINATOR-C Referring Provider, Other Pr ovider Active Dr. Jah Shell , DO Attending Provider Active Team Status: Active Member Role Status Dates Dr. Betty Winslow , DO Primary Care Provider Active Jeanine Cano WORKFORCE MANAGEMENT COORDINATOR, WORKFORCE MANAGEMENT COORDINATOR-C Referring Provider, Other Pr ovider Active Dr. Luis Carlos Newman MD Attending Provider Active Team Status: Inactive Member Role Status Dates Dr. Betty Winslow DO Primary Care Provider Active Dr. Jayla Nunez , DO Attending Provider, Taina wagoner Active Recreational Therapy Aide Relationship Specialty Start Date End Date Betty Winslow DO [address] [place], [place] [address] PCP - [facility] Medicine 05/15/18 Recreational Therapy Aide Relationship Specialty Start Date End Date Betty Winslow DO [address] [place], [place] [phone] PCP [facility] Medicine 05/15/18 Team Status: Active Member Role/Relationship Status Dates Dr. Richard Howard MD Primary Care Provider Active Team Status: Inactive Member Role/Relationship Status Dates Jeanine Cano NP, WORKFORCE MANAGEMENT COORDINATOR-C Attending Provider Active Start: February 22, 2025 End: February 22, 2025 Jeanine Cano WORKFORCE MANAGEMENT COORDINATOR, WORKFORCE MANAGEMENT COORDINATOR-C Referring Provider Active Start: February 22, [...] or prosecute any alcohol or drug abuse patient.[facility] the event this information is protected by the Federal Confidentiality of Alcohol and Drug Abuse Patient Records regulations: The Federal rules restrict any use of the information to criminally investigate or prosecute any alcohol or drug abuse patient.[facility] the event this information is protected by the Federal Confidentiality of Alcohol and Drug Abuse Patient Records regulations: The Federal rules restrict any use of the information to criminally investigate or prosecute any alcohol or drug abuse patient.[facility] the event this information is protected by the Federal Confidentiality of Alcohol and Drug Abuse Patient Records regulations: The Federal rules restrict any use of the information to criminally investigate or prosecute any alcohol or drug abuse patient.[facility] the event this information is protected by the Federal Confidentiality of Alcohol and Drug Abuse Patient Records regulations: The Federal rules restrict any use of the information to criminally investigate or prosecute any alcohol or drug abuse patient.[facility] the event this information is protected by the Federal Confidentiality of Alcohol and Drug Abuse Patient Records regulations: The Federal rules restrict any use of the information to criminally investigate or prosecute any alcohol or drug abuse patient.[facility] the event this information is protected by the Federal Confidentiality of Alcohol and Drug Abuse Patient Records regulations: The Federal rules restrict any use of the information to criminally investigate or prosecute any alcohol or drug abuse patient.[facility] Reason for Visit (unrecogniz ed section and [...] section and content) DATE CREATED AUTHOR 11/02/2022 [facility] DATE CREATED AUTHOR AUTHOR'S ORGANIZ ATION 06/11/2023 [facility] DATE CREATED AUTHOR AUTHOR'S ORGANIZ ATION 02/27/2025 [facility] FOR RECORDS PERTAINING TO PATIENTS WHO [...] BE BASED ON THE PRIMARY CLINICAL RECORDS. [facility] [employer] [facility]. provides no warranty or guarantee of the accuracy or completeness of information in this document.
[2025-03-10 19:38] LABS: Xtra Tube Kwok EXTRA TUBE
== END | disposition home or self-care (01) ==
LOC: POLAB3 11:37
PROVIDERS: PCP Family Medicine Geriatric Medicine; Visit Provider Family Medicine Geriatric Medicine
DX: I10 Essential (primary) hypertension (principal); E55.9 Vitamin D deficiency, unspecified
CPT/HCPCS: 36415; 80053; 82306; 84443; 85025

== ENCOUNTER → 2025-05-12 | Outpatient (CLI) | payer MEDICARE, OTHER, SELFPAY ==
--- NOTE | 2025-05-12 10:35 | STEWCON_ITS ---
Reason For Study Reason For Study: Dyspnea Stress Results Protocol: [facility] Protocol WITH DEFINITY Maximum Predicted HR: 147 bpm Target HR: 125 bpm % Maximum Predicted HR: 86 % DurationHeart Rate Stage (mm:ss) (bpm) BP Comment Baseline 62 130/82No Chest Pain; 2 ML Diluted Definity [facility] Protocol Stage I 3:00 111 154/70No Chest Pain; Mild Dyspnea [facility] Protocol Stage II 1:46 126 160/72No Chest Pain; Moderate to Severe Dyspnea Recovery 80 142/80No Chest Pain; Dyspnea Resolved 4 Minutes Into Recovery Stress Duration: 4:46 mm:ss Maximum Stress HR: 126 bpm METS: 7 Baseline Echocardiogram Findings Stress Echo Wall motion Data Resting WM Intermediate WM Stress WM MMode/2D Measurements & Calculations LVIDd: 4.5 cm FS: 31.1 % EDV(MOD-sp4): 78.9 ml LVIDs: 3.1 cm ESV(MOD-sp4): 34.8 ml EF(MOD-sp4): 55.9 % EDV(MOD-sp2): 66.7 ml SV(MOD-sp4): 44.1 ml ESV(MOD-sp2): 29.7 ml EF(MOD-sp2): 55.5 % ECHO/Stress Test Echo W/Contrast Interpretation Summary Stress echo with Definity enhancement. 74-year-old man with a history of dyspnea. Stress EKG demonstrates normal sinus rhythm with a rate of 63 bpm resting blood pressure is 130/82 mmHg. The patient exercised according to regular Luis Carlos protocol for total duration of 4 minutes a nd 46 seconds. The maximal heart rate attained was 126 bpm which was 85% of max impacted heart rate the maximum workl oad was 7 metabolic equivalents. At rest there were no ST or T wave changes noted suggest ischemia and at peak exercise upsloping ST changes were noted we did not meet the criteria for ischemia. The patient was noted to be markedly short of breath and stage II of the exercise. The peak blood pressure was 180/84 mmHg. Rate-pressure product was 20,100. This is a good blood pressure response to exercise. Stress echocardiogram. The resting echocardiogram performed with Definity enhan cement demonstrated preserved ejection fraction of 60% the stress echocardiogram images were suboptimal and required D efinity enhancement. The anterior wall did not appear to contract as well as the rest of the martínez however, and ischem ia in this territory cannot be completely excluded. Conclusion: Stress echo with no EKG changes for ischemia at a moderate workload. Marked reduction in functional capacity over the ensuing 6 years. Cannot completely exclude anterior ischemia. Ordering Physician: Heriberto Dc Referring Physician: Heriberto Dc Performed By: Geovanna Kapoor RDCS, RVT
== END | disposition home or self-care (01) ==
LOC: CVS 10:35
PROVIDERS: PCP Family Medicine Geriatric Medicine; Referring Provider Internal Medicine Cardiovascular Disease; Visit Provider Internal Medicine Cardiovascular Disease
DX: R06.09 Other forms of dyspnea (principal); I10 Essential (primary) hypertension; I77.811 Abdominal aortic ectasia
CPT/HCPCS: 93017; 93350; Q9957; A4216; C8928

== ENCOUNTER → 2025-05-21 | Outpatient (CLI) | payer MEDICARE, OTHER, SELFPAY | END | disposition home or self-care (01) | LOC: PSN 08:00 | PROVIDERS: PCP Family Medicine Geriatric Medicine; Referring Provider Nurse Practitioner Gerontology; Visit Provider Nurse Practitioner Gerontology | DX: R06.09 Other forms of dyspnea (principal) | CPT/HCPCS: 94060; 94726; 94729 ==